=== PATIENT | female | born 1945 | race Caucasian/White ===

== ENCOUNTER 2019-12-28 11:36 | Outpatient (REF) | payer MEDICARE, SELFPAY ==
[2019-12-28 14:14] LABS: MANUAL DIFF FLAG NO
[2019-12-28 14:22] LABS: Basophils Absolute Auto 0.1 X10*3/uL (0.0-0.2); Basophils Percent Auto 1.7 % (0-2); Eosinophils Absolute Auto 0.2 X10*3/uL (0.0-0.4); Hematocrit 39.8 % (37-47); Hemoglobin 12.2 g/dl (12.0-16.0); Imm Gran Abs Auto 0.01 X10*3/uL (0.00-0.03); Imm Gran Pct Auto 0.2 % (0.0-0.4); Lymphocytes Absolute Auto 2.2 X10*3/uL (1.2-4.9); Lymphocytes Percent Auto 40.9 % (20-40); Mean Corpuscular HGB Conc 30.7 g/dl (31.0-35.0); Mean Corpuscular Hemoglobin 26.2 pg (27.0-33.0); Mean Corpuscular Volume 85.4 fL (80-98); Mean Platelet Volume 10.1 fL (9.4-12.3); Monocytes Absolute Auto 0.5 X10*3/uL (0.1-1.2); Monocytes Percent Auto 8.7 % (2-11); Neutrophils Absolute Auto 2.4 X10*3/uL (2.0-8.3); Neutrophils Percent Auto 45.5 % (45-73); Platelet Count 357 X10*3/uL (160-400); Red Blood Count 4.66 X10*6/uL (4.20-5.50); Red Cell Distribution Width 13.3 % (11.0-16.0); White Blood Count 5.3 X10*3/uL (4.8-10.8)
[2019-12-28 14:50] LABS: Alanine Aminotransferase 10 U/L (0-31); Albumin Level 4.3 g/dL (3.5-5.0); Alkaline Phosphatase 77 U/L (39-117); Anion Gap 12 (12-20); Aspartate Amino Transferase 18 U/L (5-31); Bilirubin Total 0.2 mg/dL (0.0-1.0); Blood Urea Nitrogen 19 mg/dL (9-16); Calcium 9.3 mg/dL (8.4-10.2); Carbon Dioxide 28 mmol/L (22-29); Chloride 105 mmol/L (96-108); Cholesterol 289 mg/dL; Estimated Glomerular Filt Rate 48; Glucose Fasting 95 mg/dL (60-99); HDL Cholesterol 65 mg/dL; LDL Cholesterol Calculated 202 mg/dl; Rheumatoid Factor < 15.0 IU/mL (<15.0); Sodium 140 mmol/L (135-145); Total Protein 6.9 g/dL (6.5-8.0); Triglycerides 112 mg/dL
[2019-12-28 15:10] LABS: TSH reflex Free T4 0.28 mIU/mL (0.32-4.0)
[2019-12-28 15:18] LABS: Erythrocyte Sedimentation Rate 7 MM/HR (0-20)
[2019-12-28 15:59] LABS: Free T4 (Free Thyroxine) 0.59 ng/dL (0.71-1.85)
== END 2019-12-28 11:37 | disposition home or self-care (01) ==
LOC: HO.WFDLDS 11:36
PROVIDERS: Visit Provider Family Medicine
DX: Z00.00 Encounter for general adult medical examination without abnormal findings (principal); R53.82 Chronic fatigue, unspecified; M19.042 Primary osteoarthritis, left hand; M19.041 Primary osteoarthritis, right hand
CPT/HCPCS: 36415; 80053; 80061; 84439; 84443; 85025; 85652; 86431

== ENCOUNTER → 2020-04-15 08:56 | Outpatient (BNVA) | payer MEDICARE, SELFPAY | PROVIDERS: PCP Family Medicine; Referring Provider Family Medicine; Visit Provider Family Medicine Adult Medicine ==

== ENCOUNTER 2020-05-21 08:46 | Outpatient (REF) | payer MEDICARE, SELFPAY ==
--- NOTE | ~2020-05-21 | XR_ITS ---
EXAMINATION: XR SHOULDER, LEFT CLINICAL INFORMATION: Pain COMPARISON: None TECHNIQUE: AP external rotation, Grashey, scapular Y, and axillary views of the left shoulder. FINDINGS: Bone alignment is normal. No fracture or dislocation is seen. The glenohumeral joint is normal. There is arthritis at the acromioclavicular joint. Soft tissues are unremarkable. XR/XR shoulder LT min 2V IMPRESSION: Arthritis at the acromioclavicular joint.
== END 2020-05-21 08:47 | disposition home or self-care (01) ==
LOC: HO.XRAY 08:46
PROVIDERS: PCP Internal Medicine; Visit Provider Orthopaedic Surgery
DX: M25.512 Pain in left shoulder (principal); M75.42 Impingement syndrome of left shoulder
CPT/HCPCS: 20610; 73030; 99202; J1040

== ENCOUNTER 2020-06-11 10:09 | Outpatient (REF) | payer MEDICARE, SELFPAY ==
[2020-06-11 11:43] LABS: Alanine Aminotransferase 11 U/L (0-31); Albumin Level 4.4 g/dL (3.5-5.0); Alkaline Phosphatase 74 U/L (39-117); Anion Gap 14 (12-20); Aspartate Amino Transferase 16 U/L (5-31); Bilirubin Total 0.4 mg/dL (0.0-1.0); Blood Urea Nitrogen 21 mg/dL (9-16); Calcium 9.6 mg/dL (8.4-10.2); Carbon Dioxide 26 mmol/L (22-29); Chloride 104 mmol/L (96-108); Cholesterol 270 mg/dL; Estimated Glomerular Filt Rate 43; Glucose Fasting 84 mg/dL (60-99); HDL Cholesterol 76 mg/dL; LDL Cholesterol Calculated 177 mg/dl; Potassium 4.9 mmol/L (3.3-5.1); Sodium 139 mmol/L (135-145); Total Protein 7.1 g/dL (6.5-8.0); Triglycerides 85 mg/dL
[2020-06-11 11:54] LABS: Free T4 (Free Thyroxine) 0.77 ng/dL (0.71-1.85); Thyroid Stimulating Hormone 1.15 uIU/mL (0.32-4.0); Vitamin D 25-OH Total 34.8 ng/mL (>30)
== END 2020-06-11 10:10 | disposition home or self-care (01) ==
LOC: HO.WFDLDS 10:09
PROVIDERS: Visit Provider Internal Medicine
DX: E78.5 Hyperlipidemia, unspecified (principal); I10 Essential (primary) hypertension; E03.9 Hypothyroidism, unspecified; Z78.0 Asymptomatic menopausal state
CPT/HCPCS: 36415; 80053; 80061; 82306; 84439; 84443

== ENCOUNTER 2020-11-28 11:12 | Outpatient (REF) | payer MEDICARE, SELFPAY ==
--- NOTE | ~2020-11-28 | MM_ITS ---
EXAMINATION: MM SCREENING DIGITAL BREAST TOMOSYNTHESIS, BILATERAL CLINICAL INFORMATION: Screening. Asymptomatic. The lifetime risk of breast cancer based on the Tyrer-Cuzick Model is 3%. COMPARISON: Mammography: 08/08/2019, 06/12/2018, 05/26/2017 TECHNIQUE: Digital breast tomosynthesis is performed in both the craniocaudal and mediolateral oblique views along with computer-aided detection (CAD). Synthesized 2D images are generated from the tomosynthesis. FINDINGS: There are scattered areas of fibroglandular density (ACR BI-RADS breast composition Category b). There are no significant masses, abnormal calcifications, or other abnormalities. Nodular asymmetry mid upper outer left breast is stable from prior studies. There is no developing density or architectural abnormality. The axilla and skin contours are unremarkable. No significant changes. MM/MM tomosynthesis screening BI IMPRESSION: No mammographic evidence of malignancy. ASSESSMENT: BI-RADS 2: Benign RECOMMENDATION: Routine annual mammography screening. This patient's information was entered into a reminder system with a target due date for their next mammogram.
== END 2020-11-28 11:13 | disposition home or self-care (01) ==
LOC: HO.MAMMO 11:12
PROVIDERS: Visit Provider Internal Medicine
DX: Z12.31 Encounter for screening mammogram for malignant neoplasm of breast (principal)
CPT/HCPCS: 77063; 77067

== ENCOUNTER 2021-12-02 11:11 | Outpatient (REF) | payer MEDICARE, SELFPAY ==
--- NOTE | ~2021-12-02 | MM_ITS ---
EXAMINATION: MM SCREENING DIGITAL BREAST TOMOSYNTHESIS, BILATERAL CLINICAL INFORMATION: Screening. Asymptomatic. The lifetime risk of breast cancer based on the Tyrer-Cuzick Model is 2.3%. COMPARISON: Mammography: November 28, 2020 and studies dating back to February 05, 2014 TECHNIQUE: Digital breast tomosynthesis is performed in both the craniocaudal and mediolateral oblique views along with computer-aided detection (CAD). Synthesized 2D images are generated from the tomosynthesis. FINDINGS: There are scattered areas of fibroglandular density (ACR BI-RADS breast composition Category b). There are no significant masses, abnormal calcifications, or other abnormalities. MM/MM tomosynthesis screening BI IMPRESSION: No significant changes from prior exam. ASSESSMENT: BI-RADS 1: Negative RECOMMENDATION: Routine annual mammography screening. This patient's information was entered into a reminder system with a target due date for their next mammogram.
== END 2021-12-02 11:12 | disposition home or self-care (01) ==
LOC: HO.MAMMO 11:11
PROVIDERS: PCP Internal Medicine; Visit Provider Internal Medicine
DX: Z12.31 Encounter for screening mammogram for malignant neoplasm of breast (principal)
CPT/HCPCS: 77063; 77067

== ENCOUNTER 2021-12-02 11:40 | Outpatient (REF) | payer MEDICARE, SELFPAY ==
[2021-12-02 12:07] LABS: MANUAL DIFF FLAG NO
[2021-12-02 12:41] LABS: Basophils Absolute Auto 0.1 X10*3/uL (0.0-0.2); Basophils Percent Auto 0.8 % (0-2); Eosinophils Absolute Auto 0.1 X10*3/uL (0.0-0.4); Eosinophils Percent Auto 1.8 % (0-4); Hematocrit 36.9 % (37.0-47.0); Hemoglobin 11.7 g/dl (12.0-16.0); Imm Gran Abs Auto 0.02 X10*3/uL (0.00-0.03); Imm Gran Pct Auto 0.3 % (0.0-0.4); Lymphocytes Absolute Auto 2.5 X10*3/uL (1.2-4.9); Lymphocytes Percent Auto 34.8 % (20-40); Mean Corpuscular HGB Conc 31.7 g/dl (31.0-35.0); Mean Corpuscular Hemoglobin 26.5 pg (27.0-33.0); Mean Corpuscular Volume 83.5 fL (80.0-98.0); Mean Platelet Volume 9.9 fL (9.4-12.3); Monocytes Absolute Auto 0.7 X10*3/uL (0.1-1.2); Monocytes Percent Auto 9.7 % (2-11); Neutrophils Absolute Auto 3.8 x10*3/uL (2.0-8.3); Neutrophils Percent Auto 52.6 % (45-73); Platelet Count 334 X10*3/uL (160-400); Red Blood Count 4.42 X10*6/uL (4.20-5.50); Red Cell Distribution Width 13.4 % (11.0-16.0); White Blood Count 7.3 X10*3/uL (4.8-10.8)
[2021-12-02 13:12] LABS: Alanine Aminotransferase 11 U/L (0-31); Anion Gap 19 (12-20); Aspartate Amino Transferase 24 U/L (5-31); Blood Urea Nitrogen 17 mg/dL (9-16); Calcium 9.3 mg/dL (8.4-10.2); Carbon Dioxide 21 mmol/L (22-29); Chloride 105 mmol/L (96-108); Cholesterol 280 mg/dL; Estimated Glomerular Filt Rate 42; Glucose Fasting 76 mg/dL (60-99); HDL Cholesterol 56 mg/dL; LDL Cholesterol Calculated 194 mg/dl; Potassium 5.1 mmol/L (3.3-5.1); Sodium 140 mmol/L (135-145); Triglycerides 150 mg/dL
[2021-12-02 13:26] LABS: Vitamin D 25-OH Total 37.6 ng/mL (>30)
[2021-12-02 13:46] LABS: Folate > 20.0 ng/mL (> or = 4.0); Vitamin B12 281 pg/mL (200-900)
== END 2021-12-02 11:41 | disposition home or self-care (01) ==
LOC: HO.LAB 11:40
PROVIDERS: PCP Internal Medicine; Visit Provider Internal Medicine
DX: I10 Essential (primary) hypertension (principal); E78.5 Hyperlipidemia, unspecified; G47.419 Narcolepsy without cataplexy; M19.041 Primary osteoarthritis, right hand; M19.042 Primary osteoarthritis, left hand; Z87.19 Personal history of other diseases of the digestive system; Z98.890 Other specified postprocedural states
CPT/HCPCS: 36415; 80048; 80061; 82306; 82607; 82746; 84450; 84460; 85025

== ENCOUNTER → 2021-12-17 09:18 | Outpatient (REF) | payer MEDICARE, SELFPAY ==
--- NOTE | ~2021-12-17 | NM_ITS ---
Exercise Myocardial perfusion study Indication: Atherosclerotic heart disease to evaluate for myocardial ischemia Technique: The patient was brought in for an exercise perfusion study on 12/17/2021. Patient performed exercise as per Sacha protocol and was injected 25 mCi of sestamibi was given intravenously one target HR was achieved. Images were obtained using the SPECT gamma camera interlaced with the gating device. Images were obtained in supine position. Resting perfusion study was performed on 12/18/2021. Patient was administered 25 mCi of sestamibi intravenously at rest. Images were then obtained in supine position. Images obtained with and without CT attenuation. Total DLP 86 mGy-cm. Images were processed with the software and compared side to side in short axis, horizontal long axis and vertical long axis views. Findings: The stress perfusion study showed non attenuated images show normal uptake of radiotracer in all segments of LV myocardium. There is suggestion of left hypertrophy. Attenuation corrected images show minimally reduced uptake in the apex of the LV myocardium.. The gated study shows normal LV function with calculated LVEF of greater than 70%. LV cavity is normal in size. The gated study shows normal systolic wall thickening and contraction of all segments. There is no transient ischemic dilation. Resting study shows no change in perfusion pattern compared to stress perfusion study. Gating at rest reveals normal systolic wall motion with ejection fraction at greater than 70%. The findings are consistent with normal myocardial perfusion. NM/NM sebastien perf SPECT rest & str Impression: 1. Normal myocardial perfusion 2. Gated LVEF is greater than 70% 3. Transient ischemic dilatation not present Stress EKG is equivocal for ischemia
--- NOTE | 2021-12-17 09:22 | CA_ITS ---
Acquisition Time: 2021-12-17 10:25:12 Total Exercise Time: 00:05:00 Test Indications: LEFT ARM PAIN Medications: SEE CHART Protocol: JASMEET Max HR: 157 BPM 107% of Pred: 146 BPM Max BP: 164/058 mmHG Max Work Load: 5.7 METS Exercise stress test with exercise 5 min of Jasmeet protocol, achieving 101% MPHR, with moderate shortness of breath, 2/10 ache in upper chest and ache in left upper arm, without arrythmia, with normtensive response to exercise, with borderline ST changes noted inferolateral leads. In recovery her symptoms resolved. Nuclear images pending. Test reviewed with Dr Bone Referred By: Sarwat Bone Overread By: HEBER WILLARD
--- NOTE | 2021-12-17 09:22 | CA_ITS ---
Transthoracic Echocardiogram Patient (Last, First, Middle): Azalia Coleman D Gender: Female Date of : 1945 Age: 76 Procedure Date: 12/17/2021 Procedure Type: Transthoracic Echocardiogram Location: OP Height: 154.94 cm Weight: 56.7 kg BSA: 1.55 m2 Heart Rate: 80 bpm BP: 140 / 70 mmHg Head Correction Officer: CLAUDE Referring MD: Sarwat Bone MD Symptoms: I25.10 - Atherosclerotic heart disease of [place] coronary artery without... Study Quality: Adequate ECG Rhythm: Sinus Conclusions: - The left ventricular systolic function is normal. The visually estimated ejection fraction is between 65-70%. - No obvious valvular pathology seen on this study. Findings Left Ventricle Normal left ventricular cavity size. The left ventricular systolic function is normal. The visually estimated ejection fraction is between 65-70%. There is no evidence of regional wall motion abnormalities. Diastolic function is normal for age. There is mild septal asymmetric hypertrophy. LV peak GLS measured at -13.2%, but probably underestimated. Right Ventricle Normal right ventricular cavity size and systolic function. Atria Both atria are normal in size. Aortic Valve The aortic valve was not well visualized. There is no aortic valve stenosis. There is no aortic valve regurgitation. Mitral Valve The mitral valve appears normal. There is no mitral valve regurgitation. There is no mitral valve stenosis. Pulmonic Valve The pulmonic valve is likely normal. Tricuspid Valve Normal tricuspid valve structure. There is no tricuspid valve regurgitation. Tricuspid regurgitation envelope is inadequate for calculation of right ventricular systolic pressure. Great Vessels The asc aorta is normal in size. Venous The inferior vena cava is normal in size and collapses greater than 50% with inspiration. Pericardium/Pleural There is no evidence of pericardial effusion. Prior Study Comparison No significant change compared to prior study dated: 12/06/2017. Recommendations, Care & Conclusions No obvious valvular pathology seen on this study. Measurements 2D Linear Measurements IVSd: 1.20 0.6-0.9/0.6-1.0 cm LVIDd: 3.50 3.9-5.3/4.2-5.9 cm LVIDd Index: 2.26 2.4-3.2/2.2-3.1 cm/m2 LVIDs: 1.97 2.0-3.6 cm LVPWd: 0.95 0.7-1.1 cm LA Diam: 2.70 2.7-3.8/3.0-4.0 cm LAIDs Index: 1.74 1.5-2.3 cm/m2 LV Mass: 143.09 67-162/88-224 g LV Mass Index: 92.31 43-95/49-115 g/m2 LVOT Diam: 1.80 3.0+(-)1.3 cm 2D Systolic Function EF 4C: 62.10 >55% EF 2C: 55.30 >55% EF BiP: 56.60 >55% Mitral Valve MV Pk E: 0.68 MV PK A: 0.93 MV Decel Time: 278.00 E/A: 0.70 E'Lateral: 5.85 E'Medial: 3.90 E/E' Med: 17.40 E/E' Lat: 11.60 PHT: 81.00 MVA PHT: 2.72 Decel Fountain: 2.45 Aortic Valve AoV Pk Damon: 1.21 AoV Mn Damon: 0.84 AoV VTI: 0.27 AoV Pk Grad: 6.00 Aov Mn Grad: 3.00 LEXA Cont.VTI: 2.27 LVOT LVOT Pk Damon: 0.96 LVOT Mn Damon: 0.69 LVOT VTI: 0.24 LVOT Pk Grad: 4.00 LVOT Mn Grad: 2.00 LVOT Diam: 1.80 LVOT Area: 2.54 Diastolic Function MV Pk E: 0.68 MV Pk A: 0.93 E/A: 0.70 E'Medial: 3.90 E/E' Med: 17.40 E' Laterial: 5.85 E/E' Lat: 11.60 Right Ventricle TAPSE (mm): 16.50 TVS' Damon: 12.80 Tricuspid Valve RA Press: 3.00 Great Vessels Aorta Sinus of Valsalva: 3.00 2.0-3.5 cm Ao Asc: 3.30 2.1-3.4 cm Pulmonary Valve PV Pk Damon: 0.95 Peak PV Grad: 4.00 Updated in Other Vendor System with Status of Final Sarwat Bone MD electronically signed on 12/18/2021 12:50:39 PM with status of Final
== END ==
LOC: HO.CARD 09:18
PROVIDERS: Visit Provider Internal Medicine
DX: R07.2 Precordial pain (principal); I25.10 Atherosclerotic heart disease of native coronary artery without angina pectoris
CPT/HCPCS: 78452; 93017; 93306; 93356; A9500

== ENCOUNTER → 2022-02-04 12:59 | Outpatient (BNVA) | payer MEDICARE, SELFPAY | PROVIDERS: PCP Internal Medicine; Referring Provider Internal Medicine; Visit Provider Nurse Practitioner Family | DX: M79.602 Pain in left arm (principal); I10 Essential (primary) hypertension; R00.2 Palpitations; E78.5 Hyperlipidemia, unspecified | CPT/HCPCS: 93005; 99202 ==

== ENCOUNTER → 2022-02-19 11:20 | Outpatient (REF) | payer MEDICARE, SELFPAY ==
--- NOTE | 2022-02-19 11:23 | HM_ITS ---
* Total monitoring time about 4 days. * Underlying rhythm is sinus. * Average ventricular rate 80/Min. Range 61 to 118/Min. * Rare PVCs. Short run of likely idioventricular rhythm. * No significant bradycardia or pauses. * No patient diary. MTDD
== END ==
LOC: HO.CARD 11:20
PROVIDERS: PCP Internal Medicine; Visit Provider Nurse Practitioner Family
DX: R00.2 Palpitations (principal)
CPT/HCPCS: 93242

== ENCOUNTER 2022-04-09 11:01 | Outpatient (REF) | payer MEDICARE, SELFPAY ==
[2022-04-09 13:28] LABS: MANUAL DIFF FLAG NO
[2022-04-09 13:29] LABS: Basophils Absolute Auto 0.1 X10*3/uL (0.0-0.2); Basophils Percent Auto 1.4 % (0-2); Eosinophils Absolute Auto 0.1 X10*3/uL (0.0-0.4); Eosinophils Percent Auto 1.9 % (0-4); Hematocrit 40.9 % (37.0-47.0); Hemoglobin 12.8 g/dl (12.0-16.0); Imm Gran Abs Auto 0.01 X10*3/uL (0.00-0.03); Imm Gran Pct Auto 0.2 % (0.0-0.4); Lymphocytes Absolute Auto 2.9 X10*3/uL (1.2-4.9); Lymphocytes Percent Auto 44.6 % (20-40); Mean Corpuscular HGB Conc 31.3 g/dl (31.0-35.0); Mean Corpuscular Hemoglobin 26.3 pg (27.0-33.0); Mean Corpuscular Volume 84.2 fL (80.0-98.0); Mean Platelet Volume 10.2 fL (9.4-12.3); Monocytes Absolute Auto 0.7 X10*3/uL (0.1-1.2); Monocytes Percent Auto 10.8 % (2-11); Neutrophils Absolute Auto 2.6 x10*3/uL (2.0-8.3); Neutrophils Percent Auto 41.1 % (45-73); Platelet Count 373 X10*3/uL (160-400); Red Blood Count 4.86 X10*6/uL (4.20-5.50); Red Cell Distribution Width 13.4 % (11.0-16.0); White Blood Count 6.4 X10*3/uL (4.8-10.8)
[2022-04-09 14:23] LABS: Cholesterol 270 mg/dL; HDL Cholesterol 64 mg/dL; Iron 123 mcg/dL (30-160); LDL Cholesterol Calculated 183 mg/dl; Percent Iron Saturation 38 % (15-50); Total Iron Binding Capacity 327 mcg/dL (228-428); Triglycerides 118 mg/dL; Unsaturated Iron Binding 204 ug/dL
== END 2022-04-09 11:02 | disposition home or self-care (01) ==
LOC: HO.WFDLDS 11:01
PROVIDERS: Visit Provider Internal Medicine
DX: Z00.01 Encounter for general adult medical examination with abnormal findings (principal); I10 Essential (primary) hypertension; E78.5 Hyperlipidemia, unspecified; Z86.2 Personal history of diseases of the blood and blood-forming organs and certain disorders involving the immune mechanism
CPT/HCPCS: 36415; 80061; 83540; 85025

== ENCOUNTER 2022-07-09 10:29 | Outpatient (REF) | payer MEDICARE, SELFPAY ==
[2022-07-09 13:24] LABS: MANUAL DIFF FLAG NO
[2022-07-09 13:26] LABS: Basophils Absolute Auto 0.1 X10*3/uL (0.0-0.2); Basophils Percent Auto 1.4 % (0-2); Eosinophils Absolute Auto 0.2 X10*3/uL (0.0-0.4); Eosinophils Percent Auto 2.7 % (0-4); Hematocrit 37.9 % (37.0-47.0); Imm Gran Abs Auto 0.02 X10*3/uL (0.00-0.03); Imm Gran Pct Auto 0.4 % (0.0-0.4); Lymphocytes Absolute Auto 2.5 X10*3/uL (1.2-4.9); Mean Corpuscular HGB Conc 31.7 g/dl (31.0-35.0); Mean Corpuscular Hemoglobin 26.3 pg (27.0-33.0); Mean Corpuscular Volume 83.1 fL (80.0-98.0); Mean Platelet Volume 10.4 fL (9.4-12.3); Monocytes Absolute Auto 0.5 X10*3/uL (0.1-1.2); Monocytes Percent Auto 9.4 % (2-11); Neutrophils Absolute Auto 2.4 x10*3/uL (2.0-8.3); Neutrophils Percent Auto 42.1 % (45-73); Platelet Count 316 X10*3/uL (160-400); Red Blood Count 4.56 X10*6/uL (4.20-5.50); Red Cell Distribution Width 13.8 % (11.0-16.0); White Blood Count 5.7 X10*3/uL (4.8-10.8)
[2022-07-09 14:17] LABS: Alanine Aminotransferase 11 U/L (0-31); Aspartate Amino Transferase 20 U/L (5-31); Cholesterol 242 mg/dL; HDL Cholesterol 58 mg/dL; LDL Cholesterol Calculated 162 mg/dl; Triglycerides 110 mg/dL
[2022-07-09 14:32] LABS: Vitamin D 25-OH Total 36.2 ng/mL (>30)
== END 2022-07-09 10:30 | disposition home or self-care (01) ==
LOC: HO.WFDLDS 10:29
PROVIDERS: Visit Provider Internal Medicine
DX: E78.5 Hyperlipidemia, unspecified (principal); F41.9 Anxiety disorder, unspecified; N95.9 Unspecified menopausal and perimenopausal disorder; Z86.2 Personal history of diseases of the blood and blood-forming organs and certain disorders involving the immune mechanism
CPT/HCPCS: 36415; 80061; 82306; 84450; 84460; 85025

== ENCOUNTER 2022-07-13 11:05 | Outpatient (AMB) | payer MEDICARE, SELFPAY ==
--- NOTE | 2022-07-13 11:15 | MHC.PC.OV ---
Vital Signs 07/13/22 11:17 Height 5 ft 1 in Weight 132 lb BMI 24.9 BP 142/70 H Blood Pressure Location Rt brachial Position Sitting Pulse 92 Pulse Source Pulse Oximeter Pulse Oximetry (%) 97 Oxygen Delivery Method Room Air Intake Visit Reasons: 3m, anxiety,htn,narcolepsdy, lipids Intake Note: Pt is here today for her 3 months f/u Allergies No Known Allergies [No Known Allergies*] Allergy (Verified 10/29/22 17:30) Medication List - Last Reconciled 07/13/22 by Zo Beaulieu MD cholecalciferol (vitamin D3) 50 mcg PO DAILY clobetasol 0.05% grams topical DAILY PRN duloxetine 60 mg PO DAILY enalapril maleate 10 mg PO DAILY estradiol 1 patch topical 2XW famotidine 40 mg PO BID folic acid 1 mg PO DAILY metoprolol succinate ER 25 mg PO DAILY modafinil 200 mg PO QAM rosuvastatin 5 mg PO DAILY Tobacco use date assessed: 07/13/22 Fall risk assessment: No Falls in past year Last assessed Fall Risk: 07/13/22 HPI 3m, anxiety,htn,narcolepsdy, lipids HPI Details 77-year-old lady here today for follow-up on her anxiety disorder, hypertension, narcolepsy and dyslipidemia. She has been compliant with taking her medications, has been watching what she is eating, and has tried exercising on a regular basis. 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 How often do you have a drink containing alcohol?: Never Total Score: 0 INDIRA-7 AMB Questionnaire INDIRA-7 Date INDIRA - 7 assessed: 10/16/21 Source: Developed by Drs. Brian Colon, Althea Harry, Chalo Murray and colleagues, with an educational aisha from [employer]. Review of Systems Const Denies body aches, Denies fatigue, Denies headache(s), Denies malaise and Denies weakness Eyes Denies change in vision ENT Reports no additional complaints and Denies headache(s) Card Denies chest pain, Denies chest pain with activity, Denies syncope, Denies rapid heart rate, Denies edema, Denies lightheadedness, Denies palpitations and Denies dyspnea Resp Denies cough, Denies dyspnea and Denies wheezing GI Denies bloating, Denies change in bowel habits and Denies heartburn Denies hematuria, Denies urinary frequency and Denies dysuria Musc Denies abnormal gait, Denies muscle weakness, Denies numbness and Denies radiating pain into limb Neuro Denies abnormal gait, Denies syncope, Denies headache(s), Denies memory loss, Denies numbness and Denies weakness Psych Denies depression and Denies memory loss Endo Denies fatigue and Denies palpitations Azam/Lymph Denies easy bleeding and Denies easy bruising Aller/Immun Denies wheezing Physical exam (Primary Care) Vital Signs: Last Vital Signs Pulse 92 07/13/22 11:17 BP 142/70 H 07/13/22 11:17 Pulse Ox 97 07/13/22 11:17 Oxygen Delivery Method Room Air 07/13/22 11:17 BMI result Body Mass Index 24.9 Tobacco/Smoking Status: Tobacco use Status Tobacco use date assessed 07/13/22 07/13/22 11:21 Patient Tobacco Use Status Former Tobacco user 07/13/22 11:21 e-Cigarette/Vaping Use Never Used 07/13/22 11:21 Thrive Assessment: Date of Thrive Assessment Date Thrive assessed 10/16/21 07/13/22 11:21 Const General: cooperative, healthy appearing, comfortable and no acute distress Orientation/consciousness: patient oriented x3 HENMT Head: Yes normocephalic Ears: external ears normal, TM's normal bilaterally and EAC's normal General nose exam: Normal external nose present Face and sinus: Yes face symmetric Mouth: Normal oral and palatal mucosa present, oropharynx normal and moist mucous membranes Eyes General: appearance normal, both eyes and all related structures Neck Neck: Yes full ROM, Yes no lymphadenopathy and Yes supple Thyroid: Thyroid normal Resp Effort & Inspection: normal respiratory effort and able to speak in complete sentences Auscultation: clear to auscultation bilaterally Cardio Rate: regular rate Rhythm: regular rhythm Heart sounds: S1 normal heart sound present and S2 normal heart sound present GI Inspection: Yes normal to inspection Palpation (GI): Soft to palpation, nontender, no guarding and no masses Auscultation: normal bowel sounds General: Yes no CVA tenderness Back/Spine/Pelvis Back: no CVA tenderness and No back tenderness Skin General skin exam: no rashes or lesions noted Neuro General: patient oriented x3, gait normal, moves all extremities, Normal light touch and pain sensation, no focal motor deficits and CN's II-XI intact bilaterally Extrem General: Yes full ROM, Yes no joint enlargement, Yes no pedal edema and Yes normal gait Assessment and Plan Assessment & Plan (1) Hyperlipidemia: Code(s): E78.5 - Hyperlipidemia, unspecified Plan: Reviewed recent fasting lipid profile with patient with improving LDL cholesterol levels . Continue with rosuvastatin but dose increased to 10 mg daily , in addition to adherence to low-cholesterol diet and regular exercise, at least 30 minutes 3 to 4 times a week. Advised patient to make healthy food choices, eat more fruits, vegetables, whole grains, wild caught fish and low-fat dairy. Limit amount of meat and fried or fatty food products, as well as processed foods and fast foods. Follow-up scheduled with repeat fasting lipid panel in 3 months. (2) Essential hypertension: Code(s): I10 - Essential (primary) hypertension Plan: Blood pressure goal s less than 130/80. Systolic blood pressure today slightly elevated. Continue with enalapril maleate 10 mg once a day. Reinforced importance of following a low sodium diet, getting regular exercise, and lowering stress levels. (3) Narcolepsy: Code(s): G47.419 - Narcolepsy without cataplexy Plan: Currently on modafinil Orders: Orders Alanine Aminotransferase 3 Months E78.5 - Hyperlipidemia, unspecified, I10 - Essential (primary) hypertension, M19.041 - Primary osteoarthritis, right hand, M19.042 - Primary osteoarthritis, left hand, G47.419 - Narcolepsy without cataplexy Lipid Panel 3 Months E78.5 - Hyperlipidemia, unspecified, I10 - Essential (primary) hypertension, M19.041 - Primary osteoarthritis, right hand, M19.042 - Primary osteoarthritis, left hand, G47.419 - Narcolepsy without cataplexy Basic Metabolic Panel Fasting 3 Months E78.5 - Hyperlipidemia, unspecified, I10 - Essential (primary) hypertension, M19.041 - Primary osteoarthritis, right hand, M19.042 - Primary osteoarthritis, left hand, 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 - Narcolepsy without cataplexy Aspartate Amino Transferase 3 Months E78.5 - Hyperlipidemia, unspecified, I10 - Essential (primary) hypertension, M19.041 - Primary osteoarthritis, right hand, M19.042 - Primary osteoarthritis, left hand, 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
[2022-07-13 11:17] VITALS: BP 142/70; PULSE 92; O2SAT 97; BMI 24.9
== END 2022-07-13 13:04 | disposition home or self-care (01) ==
LOC: HO.HMGC 11:05
PROVIDERS: PCP Internal Medicine; Visit Provider Internal Medicine
DX: E78.5 Hyperlipidemia, unspecified (principal); I10 Essential (primary) hypertension; G47.419 Narcolepsy without cataplexy
CPT/HCPCS: 99214

== ENCOUNTER 2022-10-29 11:05 | Outpatient (REF) | payer MEDICARE, SELFPAY ==
[2022-10-29 16:02] LABS: Alanine Aminotransferase 8 U/L (0-31); Anion Gap 14 (12-20); Aspartate Amino Transferase 20 U/L (5-31); Blood Urea Nitrogen 15 mg/dL (9-16); Calcium 9.5 mg/dL (8.4-10.2); Carbon Dioxide 24 mmol/L (22-29); Chloride 108 mmol/L (96-108); Cholesterol 322 mg/dL (<200); Estimated Glomerular Filt Rate 40; Glucose Fasting 85 mg/dL (60-99); HDL Cholesterol 65 mg/dL (>40); LDL Cholesterol Calculated 230 mg/dL (<100); Potassium 4.9 mmol/L (3.3-5.1); Sodium 141 mmol/L (135-145); Triglycerides 136 mg/dL (<150)
== END 2022-10-29 11:06 | disposition home or self-care (01) ==
LOC: HO.WFDLDS 11:05
PROVIDERS: Visit Provider Internal Medicine
DX: E78.5 Hyperlipidemia, unspecified (principal); I10 Essential (primary) hypertension; M19.041 Primary osteoarthritis, right hand; M19.042 Primary osteoarthritis, left hand; G47.419 Narcolepsy without cataplexy
CPT/HCPCS: 36415; 80048; 80061; 84450; 84460

== ENCOUNTER 2022-11-02 11:27 | Outpatient (AMB) | payer MEDICARE, SELFPAY ==
--- NOTE | 2022-11-02 11:49 | MHC.PC.OV ---
Vital Signs 11/02/22 12:12 Height 5 ft 1 in Weight 129 lb BMI 24.4 BP 146/80 H Blood Pressure Location Rt brachial Position Sitting Pulse 89 Pulse Source Pulse Oximeter Pulse Oximetry (%) 98 Oxygen Delivery Method Room Air Intake Visit Reasons: 4 month follow-up Intake Note: Pt is here today for her 4 months f/u Allergies No Known Allergies [No Known Allergies*] Allergy (Verified 11/02/22 12:31) Medication List - Last Reconciled 11/02/22 by Zo Beaulieu MD cholecalciferol (vitamin D3) 50 mcg PO DAILY clobetasol 0.05% grams topical DAILY PRN duloxetine 60 mg PO DAILY enalapril maleate 10 mg PO DAILY estradiol 1 patch topical 2XW famotidine 40 mg PO BID folic acid 1 mg PO DAILY metoprolol succinate ER 25 mg PO DAILY modafinil take 200 mg in am and 100 mg in pm 30 days rosuvastatin 5 mg PO DAILY Tobacco use date assessed: 11/02/22 Fall risk assessment: No Falls in past year Last assessed Fall Risk: 11/02/22 Dental Screening Dental Screen Date: 11/02/22 Did you have a dental visit in the last 12 months?: Yes Did you have a dental problem in the last 6 months where you did not have access to dental care?: No Was dental information given to patient?: Patient has dentist HPI 4 month follow-up HPI Details 77-year-old lady hypertension, hyperlipidemia, history of narcolepsy, currently on modafinil, arthritis in both hands and lichen sclerosis, here today for follow-up. She has been taking her medicines as directed, but has not been paying attention to her diet, and not taking her rosuvastatin regularly. Currently trying to cope with the sudden passing of her daughter. Recent fasting labs done which showed marked elevation in her LDL cholesterol. [facility] Medical History Microcytic hypochromic anemia Lichen sclerosus Hx of gastritis Narcolepsy Rotator cuff impingement syndrome of left shoulder Lumbar radiculopathy, right Arthritis of both hands Surgical History Hx of colonoscopy H/O microdiscectomy History of bowel resection Family History Brother S/P TAVR (transcatheter aortic valve replacement) Social History (Reviewed 11/28/22 @ 17: by Zo Beaulieu MD) Housing: House Alcohol intake: unknown Patient Tobacco Use Status: Former Tobacco user e-Cigarette/Vaping Use: Never Used Current occupational status: retired Current occupation: right Handed Cognitive needs: No Hearing needs: No Vision needs: Yes Questionnaire Thrive Questionnaire Date Thrive assessed: 11/02/22 I am a: Patient What is your living situation today?: I have a steady place to live Within the past 12 months, did the food you bought not last and you didn't have the money to get more?: Never true Within the past 12 months, did you worry whether your food would run out before you got money to buy more?: Never true Do you have trouble paying for medicines?: No Do you have trouble getting transportation to medical appointments?: No Do you have trouble paying your heating and electricity bill?: No Do you have trouble taking care of your child, family member or friend?: No Do you have trouble with day-to-day activities such as bathing, preparing meals, shopping, managing finances, etc.?: No Are you currently unemployed and looking for a job?: No Are you interested in more education?: No AUDIT C Alcohol Use Questionnaire (AUDIT-C) 1. How often do you have a drink containing alcohol?: Never 2. How many drinks containing alcohol do you have on a typical day when you are drinking?: 1 or 2 3. How often do you have six or more drinks on one occasion?: Never Total Score: 0 INDIRA-7 AMB Questionnaire INDIRA-7 Date INDIRA - 7 assessed: 11/02/22 Feeling nervous, anxious, or on edge: 0 = Not at all Not being able to stop or control worryin = Not at all Worrying too much about different things: 0 = Not at all Trouble relaxin = Not at all Being so restless that it is hard to sit still: 0 = Not at all Becoming easily annoyed or irritable: 0 = Not at all Feeling afraid as if something awful might happen: 0 = Not at all Total INDIRA-7 score (0-4 normal; 5-9 mild; 10-14 moderate; 15-21 severe): 0 Source: Developed by Drs. Brian Colon, Althea Harry, Chalo Murray and colleagues, with an educational aisha from [employer]. Review of Systems Const Denies body aches, Denies headache(s) and Denies weakness Eyes Denies change in vision ENT Reports no additional complaints and Denies headache(s) Card Denies chest pain, Denies chest pain with activity, Denies syncope, Denies rapid heart rate, Denies edema, Denies lightheadedness, Denies palpitations and Denies dyspnea Resp Denies cough, Denies dyspnea and Denies wheezing GI Denies bloating, Denies change in bowel habits and Denies heartburn Denies hematuria, Denies urinary frequency and Denies dysuria Musc Denies abnormal gait, Denies muscle weakness, Denies numbness and Denies radiating pain into limb Neuro Denies abnormal gait, Denies syncope, Denies headache(s), Denies memory loss, Denies numbness and Denies weakness Psych Denies depression and Denies memory loss Endo Denies palpitations Azam/Lymph Denies easy bleeding and Denies easy bruising Aller/Immun Denies wheezing Physical exam (Primary Care) Vital Signs: Last Vital Signs Pulse 89 11/02/22 12:12 BP 146/80 H 11/02/22 12:12 Pulse Ox 98 11/02/22 12:12 Oxygen Delivery Method Room Air 11/02/22 12:12 BMI result Body Mass Index 24.4 Tobacco/Smoking Status: Tobacco use Status Tobacco use date assessed 11/02/22 11/02/22 11:50 Patient Tobacco Use Status Former Tobacco user 11/02/22 11:50 e-Cigarette/Vaping Use Never Used 11/02/22 11:50 Thrive Assessment: Date of Thrive Assessment Date Thrive assessed 11/02/22 11/02/22 12:17 Const General: cooperative, comfortable and no acute distress Orientation/consciousness: patient oriented x3 HENMT Head: Yes normocephalic Ears: external ears normal General nose exam: Normal external nose present Face and sinus: Yes face symmetric Mouth: Normal oral and palatal mucosa present, oropharynx normal and moist mucous membranes Eyes General: appearance normal, both eyes and all related structures Neck Neck: Yes full ROM, Yes no lymphadenopathy and Yes supple Thyroid: Thyroid normal Resp Effort & Inspection: normal respiratory effort and able to speak in complete sentences Auscultation: clear to auscultation bilaterally Cardio Rate: regular rate Rhythm: regular rhythm Heart sounds: S1 normal heart sound present and S2 normal heart sound present GI Inspection: Yes normal to inspection Palpation (GI): Soft to palpation, nontender, no guarding and no masses Auscultation: normal bowel sounds General: Yes no CVA tenderness Back/Spine/Pelvis Back: no CVA tenderness and No back tenderness Skin General skin exam: no rashes or lesions noted Neuro General: patient oriented x3, gait normal, moves all extremities, Normal light touch and pain sensation, no focal motor deficits and CN's II-XI intact bilaterally Extrem General: Yes full ROM, Yes no joint enlargement, Yes no pedal edema and Yes normal gait Results Reviewed Results Reviewed: ENTERED: 10/29/22-[address]: ORDERED: Met Prof Fast, AST, ALT, Lipid Panel Test Result Flag Reference Site Sodium 141 135-145 mmol/L Potassium 4.9 3.3-5.1 mmol/L CL 108 96-108 mmol/L CO2 24 22-29 mmol/L Gap 14 12-20 BUN 15 9-16 mg/dL Creat 1.29 0.5-1.4 mg/dL EGFR 40 NOTE: For -[place] individuals, multiply the result by 1.210. Chronic Kidney Disease: Estimated GFR < 60 mL/min/1.73m2 Severe Kidney Disease: Estimated GFR < 15 mL/min/1.73m2 FBS 85 60-99 mg/dL CA 9.5 8.4-10.2 mg/dL AST (GOT) 20 5-31 U/L ALT (GPT) 8 0-31 U/L Triglyceride 136 <150 mg/dL Desirable Triglyceride: less than 150 mg/dL Borderline High Triglyceride 150-199 mg/dL High Triglyceride: 200-499 mg/dL Very High Triglyceride: greater than or equal to 5OO mg/dL Cholesterol 322 H <200 mg/dL Desirable Cholesterol: less than 200 mg/dL Borderline High Cholesterol: 200-239 mg/dL High Cholesterol: greater than 239 mg/dL LDL Calculated 230 H <100 mg/dL Desirable LDL: less than 100 mg/dL Near Optimal/Above Optimal LDL: 110-129 mg/dL Borderline High LDL: 130-159 mg/dL High LDL: 160-189 mg/dL Very High LDL: greater than or equal to 190 mg/dL HDL 65 >40 mg/dL Desirable HDL: greater than 40 mg/dL Note: This HDL assay may give artificially low results in patients with liver disease. Assessment and Plan Assessment & Plan (1) Hyperlipidemia: Code(s): E78.5 - Hyperlipidemia, unspecified Qualifiers: Hyperlipidemia type: pure hypercholesterolemia Qualified Code(s): E78.00 - Pure hypercholesterolemia, unspecified Plan: Discuss recent fasting lab results with patient, stressed importance of taking her medication as directed and following a low-cholesterol diet and getting regular exercise. Will recheck again fasting lipid panel in 3 months (2) Essential hypertension: Code(s): I10 - Essential (primary) hypertension Plan: Blood pressure goal is less than 130/80. Increase metoprolol succinate dose to 50 mg daily. Reinforced importance of following a low sodium diet, getting regular exercise, and lowering stress levels. Orders: Orders Lipid Panel 01/14/23 E78.5 - Hyperlipidemia, unspecified, I10 - Essential (primary) hypertension Basic Metabolic Panel Fasting 01/14/23 E78.5 - Hyperlipidemia, unspecified, I10 - Essential (primary) hypertension Alanine Aminotransferase 01/14/23 E78.5 - Hyperlipidemia, unspecified, I10 - Essential (primary) hypertension Aspartate Amino Transferase 01/14/23 E78.5 - Hyperlipidemia, unspecified, I10 - Essential (primary) hypertension Vitamin D 25-OH Total 01/14/23 E78.5 - Hyperlipidemia, unspecified, I10 - Essential (primary) hypertension Medications: Changed From metoprolol succinate ER 25 mg PO DAILY 90 tabs 1RF To metoprolol succinate ER 50 mg PO DAILY 90 tabs 1RF Coding Level of Care Code Est Pt Level 4 (71399) Diagnoses Pure hypercholesterolemia E78.00 Hyperlipidemia type: pure hypercholesterolemia Essential hypertension I10
[2022-11-02 12:12] VITALS: BP 146/80; PULSE 89; O2SAT 98; BMI 24.4
== END 2022-11-02 13:35 | disposition home or self-care (01) ==
PROVIDERS: Visit Provider Internal Medicine
DX: E78.00 Pure hypercholesterolemia, unspecified (principal); I10 Essential (primary) hypertension
CPT/HCPCS: 99214

== ENCOUNTER 2023-01-28 10:52 | Outpatient (REF) | payer MEDICARE, SELFPAY ==
[2023-01-28 15:13] LABS: Alanine Aminotransferase 10 U/L (0-31); Anion Gap 12 (12-20); Aspartate Amino Transferase 19 U/L (5-31); Blood Urea Nitrogen 19 mg/dL (9-16); Calcium 9.2 mg/dL (8.4-10.2); Carbon Dioxide 26 mmol/L (22-29); Chloride 105 mmol/L (96-108); Cholesterol 257 mg/dL (<200); Estimated Glomerular Filt Rate 41; Glucose Fasting 106 mg/dL (60-99); HDL Cholesterol 57 mg/dL (>40); LDL Cholesterol Calculated 170 mg/dL (<100); Potassium 4.2 mmol/L (3.3-5.1); Sodium 139 mmol/L (135-145); Triglycerides 152 mg/dL (<150)
== END 2023-01-28 10:53 | disposition home or self-care (01) ==
LOC: HO.WFDLDS 10:52
PROVIDERS: Visit Provider Internal Medicine
DX: E78.5 Hyperlipidemia, unspecified (principal); I10 Essential (primary) hypertension
CPT/HCPCS: 36415; 80048; 80061; 82306; 84450; 84460

== ENCOUNTER 2023-02-01 12:07 | Outpatient (AMB) | payer MEDICARE, SELFPAY ==
[2023-02-01 12:49] VITALS: BP 130/70; PULSE 71; O2SAT 97; BMI 24.6
--- NOTE | 2023-02-01 12:49 | MHC.PC.OV ---
Vital Signs 02/01/23 12:49 Height 5 ft 1 in Weight 130 lb 6 oz BMI 24.6 BP 130/70 Blood Pressure Location Lt brachial Position Sitting Pulse 71 Pulse Source Pulse Oximeter Pulse Oximetry (%) 97 Oxygen Delivery Method Room Air Intake Visit Reasons: follow up Intake Note: Pt is here to follow up for her lab results Allergies No Known Allergies [No Known Allergies*] Allergy (Verified 02/01/23 13:06) Medication List - Last Reconciled 02/01/23 by Zo Beaulieu MD cholecalciferol (vitamin D3) 50 mcg PO DAILY clobetasol 0.05% grams topical DAILY PRN duloxetine 60 mg PO DAILY enalapril maleate 10 mg PO DAILY estradiol 1 patch topical 2XW famotidine 40 mg PO BID folic acid 1 mg PO DAILY metoprolol succinate ER 50 mg PO DAILY modafinil take 200 mg in am and 100 mg in pm 30 days rosuvastatin 5 mg PO DAILY Tobacco use date assessed: 02/01/23 Fall risk assessment: No Falls in past year Last assessed Fall Risk: 02/01/23 Dental Screening Dental Screen Date: 02/01/23 Did you have a dental visit in the last 12 months?: Yes Did you have a dental problem in the last 6 months where you did not have access to dental care?: No Was dental information given to patient?: Patient has dentist HPI follow up HPI Details 78-year-old lady with hypertension, hyperlipidemia, 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 Her blood pressure is still not at goal of less than 130/90 . Recent fasting labs showed elevated LDL cholesterol at 170 mg/dL., despite taking rosuvastatin 5 mg daily. [facility] Medical History (Updated 02/01/23 @ 13:21 by Zo Beaulieu MD) Impaired fasting glucose Microcytic hypochromic anemia Lichen sclerosus Hx of gastritis Narcolepsy Rotator cuff impingement syndrome of left shoulder Lumbar radiculopathy, right Arthritis of both hands Surgical History Hx of colonoscopy H/O microdiscectomy History of bowel resection Family History Brother S/P TAVR (transcatheter aortic valve replacement) Social History Housing: House Alcohol intake: unknown Patient Tobacco Use Status: Former Tobacco user e-Cigarette/Vaping Use: Never Used Current occupational status: retired Current occupation: right Handed Cognitive needs: No Hearing needs: No Vision needs: Yes Questionnaire Thrive Questionnaire Date Thrive assessed: 11/02/22 INDIRA-7 AMB Questionnaire INDIRA-7 Date INDIRA - 7 assessed: 11/02/22 Source: Developed by Drs. Brian Colon, Althea Harry, Chalo Murray and colleagues, with an educational aisha from [employer]. Review of Systems Const Denies body aches, Denies headache(s) and Denies weakness Eyes Denies change in vision ENT Denies headache(s) Card Denies chest pain, Denies chest pain with activity, Denies syncope, Denies edema, Denies lightheadedness, Denies palpitations and Denies dyspnea Resp Denies cough, Denies dyspnea and Denies wheezing GI Denies bloating, Denies change in bowel habits and Denies heartburn Denies hematuria, Denies urinary frequency and Denies dysuria Musc Denies abnormal gait, Denies muscle weakness, Denies numbness and Denies radiating pain into limb Neuro Denies abnormal gait, Denies syncope, Denies headache(s), Denies numbness and Denies weakness Endo Denies palpitations Azam/Lymph Denies easy bleeding and Denies easy bruising Aller/Immun Denies wheezing Physical exam (Primary Care) Vital Signs: Last Vital Signs Pulse 71 02/01/23 12:49 BP 130/70 02/01/23 12:49 Pulse Ox 97 02/01/23 12:49 Oxygen Delivery Method Room Air 02/01/23 12:49 BMI result Body Mass Index 24.6 Tobacco/Smoking Status: Tobacco use Status Tobacco use date assessed 02/01/23 02/01/23 12:55 Patient Tobacco Use Status Former Tobacco user 02/01/23 12:51 e-Cigarette/Vaping Use Never Used 02/01/23 12:51 Thrive Assessment: Date of Thrive Assessment Date Thrive assessed 11/02/22 02/01/23 12:51 Const General: cooperative, comfortable and no acute distress Orientation/consciousness: patient oriented x3 HENMT Head: Yes normocephalic Ears: external ears normal General nose exam: Normal external nose present Face and sinus: Yes face symmetric Mouth: Normal oral and palatal mucosa present, oropharynx normal and moist mucous membranes Eyes General: appearance normal, both eyes and all related structures Neck Neck: Yes full ROM, Yes no lymphadenopathy and Yes supple Thyroid: Thyroid normal Resp Effort & Inspection: normal respiratory effort and able to speak in complete sentences Auscultation: clear to auscultation bilaterally Cardio Rate: regular rate Rhythm: regular rhythm Heart sounds: S1 normal heart sound present and S2 normal heart sound present GI Inspection: Yes normal to inspection Palpation (GI): Soft to palpation, nontender, no guarding and no masses Auscultation: normal bowel sounds General: Yes no CVA tenderness Back/Spine/Pelvis Back: no CVA tenderness and No back tenderness Skin General skin exam: no rashes or lesions noted Neuro General: patient oriented x3, gait normal, moves all extremities, Normal light touch and pain sensation, no focal motor deficits and CN's II-XI intact bilaterally Extrem General: Yes full ROM, Yes no joint enlargement, Yes no pedal edema and Yes normal gait Results Reviewed Results Reviewed: Name: Azalia Coleman Age/Sex: 78/F : 1945 Unit#: [id number] Attend Dr: Zo Beaulieu MD Re01/28/23 Status: DEP REF Location: [facility] [place] Disch: SPEC : [id number] LENARD: 01/28/23 STATUS: COMP REQ : [id number] RECD: 01/28/23-[address]: Zo Beaulieu MD COMP: 01/28/23-153 ENTERED: 01/28/23-[address]: ORDERED: Met Prof Fast, AST, ALT, Lipid Panel, Vitamin D 25-OH Test Result Flag Reference Site Sodium 139 135-145 mmol/L Potassium 4.2 3.3-5.1 mmol/L CL 105 96-108 mmol/L CO2 26 22-29 mmol/L Gap 12 12-20 BUN 19 H 9-16 mg/dL Creat 1.26 0.5-1.4 mg/dL EGFR 41 NOTE: For -[place] individuals, multiply the result by 1.210. Chronic Kidney Disease: Estimated GFR < 60 mL/min/1.73m2 Severe Kidney Disease: Estimated GFR < 15 mL/min/1.73m2 FBS 106 H 60-99 mg/dL A fasting glucose from 100-125 mg/dl is considered impaired (pre-diabetes). CA 9.2 8.4-10.2 mg/dL AST (GOT) 19 5-31 U/L ALT (GPT) 10 0-31 U/L Triglyceride 152 H <150 mg/dL Desirable Triglyceride: less than 150 mg/dL Borderline High Triglyceride 150-199 mg/dL High Triglyceride: 200-499 mg/dL Very High Triglyceride: greater than or equal to 5OO mg/dL Cholesterol 257 H <200 mg/dL Desirable Cholesterol: less than 200 mg/dL Borderline High Cholesterol: 200-239 mg/dL High Cholesterol: greater than 239 mg/dL LDL Calculated 170 H <100 mg/dL Desirable LDL: less than 100 mg/dL Near Optimal/Above Optimal LDL: 110-129 mg/dL Borderline High LDL: 130-159 mg/dL High LDL: 160-189 mg/dL Very High LDL: greater than or equal to 190 mg/dL HDL 57 >40 mg/dL Desirable HDL: greater than 40 mg/dL Note: This HDL assay may give artificially low results in patients with liver disease. Vit D 25-OH Tot 50.0 >30 ng/mL Health Based Reference Values* < 20 ng/mL Deficient 20-30 ng/mL Insufficient > 30 ng/mL Sufficient Laboratory Tests 10/29/22 01/28/23 11:05 10:55 Triglycerides 136 152 H Cholesterol 322 H 257 H LDL Cholesterol, Calc 230 H 170 H HDL Cholesterol 65 57 Assessment and Plan Assessment & Plan (1) Hyperlipidemia: Code(s): E78.5 - Hyperlipidemia, unspecified Qualifiers: Hyperlipidemia type: pure hypercholesterolemia Qualified Code(s): E78.00 - Pure hypercholesterolemia, unspecified Plan: Her lipid levels has decreased from a total cholesterol of 322 4 months ago, down to 57 mg/dL in her LDL cholesterol has come down from 230 mg/dL to 170 mg per dL in 4 months. Will continue on rosuvastatin 5 mg once a day, and reinforced adherence to low-cholesterol diet and regular exercise, at least 30 minutes 3 to 4 times a week. Advised patient to make healthy food choices, eat more fruits, vegetables, whole grains, wild caught fish and low-fat dairy. Limit amount of meat and fried or fatty food products, as well as processed foods and fast foods. Follow-up scheduled with repeat fasting lipid panel in 4 months. (2) Essential hypertension: Code(s): I10 - Essential (primary) hypertension Plan: Blood pressure at goal of less than 130/80. Continue with current medication. Reinforced importance of following a low sodium diet, getting regular exercise, and lowering stress levels. (3) Impaired fasting glucose: Code(s): R73.01 - Impaired fasting glucose Plan: Your fasting blood sugars are elevated above 100 mg/dL. Impaired glucose metabolism O2 at risk for developing diabetes mellitus type 2, as well as heart attack and stroke later on. Lifestyle changes at just weight loss, healthy eating habits, and regular exercise are important, and can prevent the progression to diabetes (4) CKD (chronic kidney disease) stage 3, GFR 30-59 ml/min: Code(s): N18.30 - Chronic kidney disease, stage 3 unspecified Plan: GFR has been stable always in the 40s. Stressed importance of getting blood pressure, cholesterol and fasting glucose and to control, avoid NSAIDs, repeat another basic metabolic panel in 4 months Orders: Orders Alanine Aminotransferase 05/16/23 E78.5 - Hyperlipidemia, unspecified, I10 - Essential (primary) hypertension, R73.01 - Impaired fasting glucose Aspartate Amino Transferase 05/16/23 E78.5 - Hyperlipidemia, unspecified, I10 - Essential (primary) hypertension, R73.01 - Impaired fasting glucose Basic Metabolic Panel Fasting 05/16/23 E78.5 - Hyperlipidemia, unspecified, I10 - Essential (primary) hypertension, R73.01 - Impaired fasting glucose Hemoglobin A1c 05/16/23 E78.5 - Hyperlipidemia, unspecified, I10 - Essential (primary) hypertension, R73.01 - Impaired fasting glucose Lipid Panel 05/16/23 E78.5 - Hyperlipidemia, unspecified, I10 - Essential (primary) hypertension, R73.01 - Impaired fasting glucose Coding Level of Care Code Est Pt Level 4 (32559) Diagnoses Pure hypercholesterolemia E78.00 Hyperlipidemia type: pure hypercholesterolemia Essential hypertension I10 Impaired fasting glucose R73.01 CKD (chronic kidney disease) stage 3, GFR 30-59 ml/min N18.30
== END 2023-02-01 13:42 | disposition home or self-care (01) ==
PROVIDERS: PCP Internal Medicine; Visit Provider Internal Medicine
DX: I12.9 Hypertensive chronic kidney disease with stage 1 through stage 4 chronic kidney disease, or unspecified chronic kidney disease (principal); E78.00 Pure hypercholesterolemia, unspecified; R73.01 Impaired fasting glucose; N18.30 Chronic kidney disease, stage 3 unspecified
CPT/HCPCS: 99214

== ENCOUNTER 2023-03-14 13:05 | Outpatient (REF) | payer MEDICARE, SELFPAY | END 2023-03-14 13:06 | disposition home or self-care (01) | LOC: HO.MAMMO 13:05 | PROVIDERS: PCP Internal Medicine; Visit Provider Internal Medicine | DX: Z12.31 Encounter for screening mammogram for malignant neoplasm of breast (principal) | CPT/HCPCS: 77063; 77067 ==

== ENCOUNTER → 2023-03-14 13:15 | Outpatient (BNV) | payer MEDICARE, SELFPAY | PROVIDERS: PCP Internal Medicine; Visit Provider Radiology Diagnostic Radiology | DX: Z12.31 Encounter for screening mammogram for malignant neoplasm of breast (principal) | CPT/HCPCS: 77063; 77067 ==

== ENCOUNTER → 2023-04-19 10:36 | Outpatient (REF) | payer MEDICARE, SELFPAY ==
--- NOTE | 2023-04-19 10:39 | ECG_ITS ---
Test Reason : htn Blood Pressure : / mmHG Vent. Rate : 077 BPM Atrial Rate : 077 BPM P-R Int : 120 ms QRS Dur : 076 ms QT Int : 378 ms P-R-T Axes : 046 041 048 degrees QTc Int : 427 ms Normal sinus rhythm Normal ECG When compared with ECG of 14-JAN-2009 14:28, No significant change was found Referred By: Zo Beaulieu Electronically Signed By:Marcial Ni
[2023-04-19 12:05] LABS: Estimated Average Glucose 108 mg/dL; Hemoglobin A1c % 5.4 % (<6.0)
[2023-04-19 12:34] LABS: Alanine Aminotransferase 10 U/L (0-31); Anion Gap 12 (12-20); Aspartate Amino Transferase 21 U/L (5-31); Blood Urea Nitrogen 18 mg/dL (9-16); Calcium 9.7 mg/dL (8.4-10.2); Carbon Dioxide 24 mmol/L (22-29); Chloride 108 mmol/L (96-108); Cholesterol 213 mg/dL (<200); Estimated Glomerular Filt Rate 42; Glucose Fasting 83 mg/dL (60-99); HDL Cholesterol 71 mg/dL (>40); LDL Cholesterol Calculated 126 mg/dL (<100); Potassium 4.9 mmol/L (3.3-5.1); Sodium 139 mmol/L (135-145); Triglycerides 84 mg/dL (<150)
== END ==
LOC: HO.CARD 10:36
PROVIDERS: Visit Provider Internal Medicine
DX: Z01.818 Encounter for other preprocedural examination (principal); I10 Essential (primary) hypertension; E78.5 Hyperlipidemia, unspecified; R73.01 Impaired fasting glucose
CPT/HCPCS: 36415; 80048; 80061; 83036; 84450; 84460; 93005

== ENCOUNTER → 2023-04-19 10:39 | Outpatient (BNV) | payer MEDICARE, SELFPAY | PROVIDERS: Visit Provider Internal Medicine Cardiovascular Disease | DX: I10 Essential (primary) hypertension (principal) | CPT/HCPCS: 93010 ==

== ENCOUNTER 2023-04-25 11:49 | Outpatient (AMB) | payer MEDICARE, SELFPAY ==
[2023-04-25 12:46] VITALS: BP 124/60; PULSE 78; O2SAT 98; BMI 25.1
--- NOTE | 2023-04-25 12:46 | MHC.PC.OV ---
Vital Signs 04/25/23 12:46 Height 5 ft 1 in Weight 133 lb BMI 25.1 BP 124/60 Blood Pressure Location Rt brachial Position Sitting Pulse 78 Pulse Source Pulse Oximeter Pulse Oximetry (%) 98 Oxygen Delivery Method Room Air Intake Visit Reasons: Lt eye cataract Dr. Waite 05/02/23 Intake Note: Pt is here today for Pre O, Lt eye cataract surgery on 05/02/[address] Waite. Allergies No Known Allergies [No Known Allergies*] Allergy (Verified 04/25/23 13:56) Medication List - Last Reconciled 04/25/23 by Zo Beaulieu MD cholecalciferol (vitamin D3) 50 mcg PO DAILY clobetasol 0.05% grams topical DAILY PRN duloxetine 60 mg PO DAILY enalapril maleate 10 mg PO DAILY estradiol 1 patch topical 2XW famotidine 40 mg PO BID folic acid 1 mg PO DAILY metoprolol succinate ER 50 mg PO DAILY modafinil take 200 mg in am and 100 mg in pm 30 days rosuvastatin 5 mg (1/2 x 10 mg) PO DAILY Tobacco use date assessed: 04/25/23 Fall risk assessment: No Falls in past year Last assessed Fall Risk: 04/25/23 Dental Screening Dental Screen Date: 04/25/23 Did you have a dental visit in the last 12 months?: Yes Did you have a dental problem in the last 6 months where you did not have access to dental care?: No Was dental information given to patient?: Patient has dentist HPI Lt eye cataract Dr. Waite 05/02/23 HPI Details 78-year-old lady with narcolepsy, currently controlled on modafinil, has hypertension and hyperlipidemia, here today for her preoperative exam for cataract surgery OS, scheduled for 05/02/2023, requested by Dr. Waite. He has been compliant with taking her medications, has changed her diet, has started walking again for exercise. She had recent fasting labs done which showed improvement in her lipid levels after starting back again on rosuvastatin 5 mg daily. Hypertension stable controlled on metoprolol succinate ER 50 mg once a day and enalapril maleate 10 mg daily. She has been feeling well with no complaints at present time except for blurry vision in left eye [facility] Medical History (Updated 04/25/23 @ 13:55 by Zo Beaulieu MD) Impaired fasting glucose Lichen sclerosus Hx of gastritis Narcolepsy Rotator cuff impingement syndrome of left shoulder Lumbar radiculopathy, right Arthritis of both hands Surgical History Hx of colonoscopy H/O microdiscectomy History of bowel resection Family History Brother S/P TAVR (transcatheter aortic valve replacement) Social History Housing: House Alcohol intake: unknown Patient Tobacco Use Status: Former Tobacco user e-Cigarette/Vaping Use: Never Used Current occupational status: retired Current occupation: right Handed Cognitive needs: No Hearing needs: No Vision needs: Yes Questionnaire Thrive Questionnaire Date Thrive assessed: 11/02/22 AUDIT C Alcohol Use Questionnaire (AUDIT-C) 1. How often do you have a drink containing alcohol?: Never 2. How many drinks containing alcohol do you have on a typical day when you are drinking?: 1 or 2 3. How often do you have six or more drinks on one occasion?: Never Total Score: 0 Score Reviewed/Action Taken: Yes INDIRA-7 AMB Questionnaire INDIRA-7 Date INDIRA - 7 assessed: 11/02/22 Source: Developed by Drs. Brian Colon, Althea Harry, Chalo Murray and colleagues, with an educational aisha from [employer]. Review of Systems Const Denies body aches and Denies weakness Eyes Reports blurry vision (left) ENT Reports no additional complaints Card Denies chest pain, Denies chest pain with activity, Denies syncope, Denies edema, Denies lightheadedness, Denies palpitations and Denies dyspnea Resp Denies cough, Denies dyspnea and Denies wheezing GI Denies bloating, Denies change in bowel habits and Denies heartburn Denies hematuria, Denies urinary frequency and Denies dysuria Musc Denies abnormal gait, Denies muscle weakness, Denies numbness and Denies radiating pain into limb Neuro Denies abnormal gait, Denies syncope, Denies numbness and Denies weakness Endo Denies palpitations Azam/Lymph Reports no additional complaints Aller/Immun Denies wheezing Physical exam (Primary Care) Vital Signs: Last Vital Signs Pulse 78 04/25/23 12:46 BP 124/60 04/25/23 12:46 Pulse Ox 98 04/25/23 12:46 Oxygen Delivery Method Room Air 04/25/23 12:46 BMI result Body Mass Index 25.1 Tobacco/Smoking Status: Tobacco use Status Tobacco use date assessed 04/25/23 04/25/23 12:55 Patient Tobacco Use Status Former Tobacco user 04/25/23 12:50 e-Cigarette/Vaping Use Never Used 04/25/23 12:50 Thrive Assessment: Date of Thrive Assessment Date Thrive assessed 11/02/22 04/25/23 12:50 Const General: cooperative, comfortable and no acute distress Orientation/consciousness: patient oriented x3 HENMT Head: Yes normocephalic Ears: external ears normal General nose exam: Normal external nose present Face and sinus: Yes face symmetric Mouth: Normal oral and palatal mucosa present, oropharynx normal and moist mucous membranes Eyes General: appearance normal, both eyes and all related structures Neck Neck: Yes full ROM, Yes no lymphadenopathy and Yes supple Thyroid: Thyroid normal Resp Effort & Inspection: normal respiratory effort and able to speak in complete sentences Auscultation: clear to auscultation bilaterally Cardio Rate: regular rate Rhythm: regular rhythm Heart sounds: S1 normal heart sound present and S2 normal heart sound present GI Inspection: Yes normal to inspection Palpation (GI): Soft to palpation, nontender, no guarding and no masses Auscultation: normal bowel sounds General: Yes no CVA tenderness Back/Spine/Pelvis Back: no CVA tenderness and No back tenderness Skin General skin exam: no rashes or lesions noted Neuro General: patient oriented x3, gait normal, moves all extremities, Normal light touch and pain sensation, no focal motor deficits and CN's II-XI intact bilaterally Extrem General: Yes full ROM, Yes no joint enlargement, Yes no pedal edema and Yes normal gait Results Reviewed Results Reviewed: Name: Azalia Coleman Age/Sex: 78/F : 1945 Unit#: [id number] Attend Dr: Zo Beaulieu MD Re04/19/23 Status: REG REF Location: [facility] Disch: SPEC : [id number] LENARD: 04/19/23 STATUS: COMP REQ : [id number] RECD: 04/19/[address] [facility] [address]: Zo Beaulieu MD COMP: 04/19/23-1233 ENTERED: 04/19/23-1040 [facility] DR: ORDERED: Met Prof Fast, AST, ALT, Lipid Panel Test Result Flag Reference Sodium 139 135-145 mmol/L Potassium 4.9 3.3-5.1 mmol/L CL 108 96-108 mmol/L CO2 24 22-29 mmol/L Gap 12 12-20 BUN 18 H 9-16 mg/dL Creat 1.24 0.5-1.4 mg/dL EGFR 42 NOTE: For -[place] individuals, multiply the result by 1.210. Chronic Kidney Disease: Estimated GFR < 60 mL/min/1.73m2 Severe Kidney Disease: Estimated GFR < 15 mL/min/1.73m2 FBS 83 60-99 mg/dL CA 9.7 8.4-10.2 mg/dL AST (GOT) 21 5-31 U/L ALT (GPT) 10 0-31 U/L Triglyceride 84 <150 mg/dL Desirable Triglyceride: less than 150 mg/dL Borderline High Triglyceride 150-199 mg/dL High Triglyceride: 200-499 mg/dL Very High Triglyceride: greater than or equal to 5OO mg/dL Cholesterol 213 H <200 mg/dL Desirable Cholesterol: less than 200 mg/dL Borderline High Cholesterol: 200-239 mg/dL High Cholesterol: greater than 239 mg/dL LDL Calculated 126 H <100 mg/dL Desirable LDL: less than 100 mg/dL Near Optimal/Above Optimal LDL: 110-129 mg/dL Borderline High LDL: 130-159 mg/dL High LDL: 160-189 mg/dL Very High LDL: greater than or equal to 190 mg/dL HDL 71 >40 mg/dL Desirable HDL: greater than 40 mg/dL Assessment and Plan Assessment & Plan (1) Preoperative examination: Code(s): Z01.818 - Encounter for other preprocedural examination Plan: 78 year old lady with hypertension, hyperlipidemia, narcolepsy, here for preoperative clearance for cataract. Pt has surgery OS, requested by Dr. Waite , scheduled for 05/02/2023 . Her hypertension, hyperlipidemia, narcolepsy are stable and controlled on present treatment. Her preoperative exam and latest fasting labs, and EKG are all within normal limits . She has a low cardiac risk index for proposed surgery. (2) Hyperlipidemia: Code(s): E78.5 - Hyperlipidemia, unspecified Qualifiers: Hyperlipidemia type: pure hypercholesterolemia Qualified Code(s): E78.00 - Pure hypercholesterolemia, unspecified Plan: Reviewed recent fasting lipid profile with patient with improved LDL cholesterol levels as well as triglycerides compared to last check . Continue rosuvastatin 5 mg daily , in addition to adherence to low-cholesterol diet and regular exercise, at least 30 minutes 3 to 4 times a week. Advised patient to make healthy food choices, eat more fruits, vegetables, whole grains, wild caught fish and low-fat dairy. Limit amount of meat and fried or fatty food products, as well as processed foods and fast foods. Follow-up scheduled with repeat fasting lipid panel in 6 months. (3) Essential hypertension: Code(s): I10 - Essential (primary) hypertension Plan: Blood pressure at goal of less than 130/80. Continue metoprolol succinate ER 50 mg daily, enalapril maleate 10 mg daily.. Reinforced importance of following a low sodium diet, getting regular exercise, and lowering stress levels. (4) Narcolepsy: Code(s): G47.419 - Narcolepsy without cataplexy Qualifiers: Narcolepsy type: primary without cataplexy Qualified Code(s): G47.419 - Narcolepsy without cataplexy Plan: Stable and controlled on modafinil, takes 200 mg in the morning and 100 mg in the afternoon (5) Impaired fasting glucose: Code(s): R73.01 - Impaired fasting glucose Plan: Her latest fasting labs and hemoglobin A1c are within normal limits. 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
== END 2023-04-25 16:59 | disposition home or self-care (01) ==
PROVIDERS: PCP Internal Medicine; Visit Provider Internal Medicine
DX: E78.00 Pure hypercholesterolemia, unspecified (principal); I10 Essential (primary) hypertension; G47.419 Narcolepsy without cataplexy; R73.01 Impaired fasting glucose; Z01.818 Encounter for other preprocedural examination
CPT/HCPCS: 99214

== ENCOUNTER 2023-10-31 10:18 | Outpatient (REF) | payer MEDICARE, SELFPAY ==
[2023-10-31 12:06] LABS: Estimated Average Glucose 117 mg/dL; Hemoglobin A1c % 5.7 % (<6.0)
[2023-10-31 13:15] LABS: Alanine Aminotransferase 11 U/L (0-31); Anion Gap 16 (12-20); Aspartate Amino Transferase 23 U/L (5-31); Blood Urea Nitrogen 18 mg/dL (9-16); Calcium 9.6 mg/dL (8.4-10.2); Carbon Dioxide 25 mmol/L (22-29); Chloride 105 mmol/L (96-108); Cholesterol 180 mg/dL (<200); Estimated Glomerular Filt Rate 42; Glucose Fasting 84 mg/dL (60-99); HDL Cholesterol 60 mg/dL (>40); LDL Cholesterol Calculated 101 mg/dL (<100); Potassium 4.8 mmol/L (3.3-5.1); Sodium 141 mmol/L (135-145); Triglycerides 98 mg/dL (<150)
[2023-10-31 13:41] LABS: Vitamin D 25-OH Total 39.3 ng/mL (>30)
== END 2023-10-31 10:19 | disposition home or self-care (01) ==
LOC: HO.WFDLDS 10:18
PROVIDERS: Visit Provider Internal Medicine
DX: R73.01 Impaired fasting glucose (principal); E78.00 Pure hypercholesterolemia, unspecified; I10 Essential (primary) hypertension; Z78.0 Asymptomatic menopausal state
CPT/HCPCS: 36415; 80048; 80061; 82306; 83036; 84450; 84460

== ENCOUNTER 2023-11-01 11:55 | Outpatient (AMB) | payer MEDICARE, SELFPAY ==
[2023-11-01 12:39] VITALS: BP 130/72; PULSE 83; O2SAT 98; BMI 25.8
--- NOTE | 2023-11-01 12:39 | MHC.PC.OV ---
Vital Signs 11/01/23 12:39 Height 5 ft 1 in Weight 136 lb 6 oz BMI 25.8 BP 130/72 Blood Pressure Location Lt brachial Position Sitting Pulse 83 Pulse Source Pulse Oximeter Pulse Oximetry (%) 98 Oxygen Delivery Method Room Air Intake Visit Reasons: Annual PE/OK per Dr. Beaulieu Intake Note: Pt is here today for Annual Physical. Last mammogram 03/14/23 last colonoscopy 08/18/18 No Bone denisty noted. Allergies No Known Allergies [No Known Allergies*] Allergy (Verified 11/01/23 12:40) Medication List - Last Reconciled 11/01/23 by Zo Beaulieu MD cholecalciferol (vitamin D3) 50 mcg PO DAILY clobetasol 0.05% grams topical 3XW PRN duloxetine 60 mg PO DAILY enalapril maleate 10 mg PO DAILY estradiol 1 patch topical 2XW folic acid 1 mg PO DAILY metoprolol succinate ER 50 mg PO DAILY modafinil take 200 mg in am and 100 mg in pm 30 days rosuvastatin 5 mg (1/2 x 10 mg) PO DAILY Tobacco use date assessed: 11/01/23 Fall risk assessment: No Falls in past year Last assessed Fall Risk: 11/01/23 Dental Screening Dental Screen Date: 11/01/23 Did you have a dental visit in the last 12 months?: Yes Did you have a dental problem in the last 6 months where you did not have access to dental care?: No Was dental information given to patient?: Patient has dentist HPI Annual PE/OK per Dr. Beaulieu HPI Details 78-year-old lady with narcolepsy, currently controlled on modafinil, has hypertension and hyperlipidemia, has prediabetes, here today for her physical exam. Last mammogram 03/14/23, last colonoscopy was in 2019, due again now per Dr. Esteves as she has had tubular adenomas in the past removed. Blood pressure controlled on current treatment Complains of mildly pruritic rash on her face around angles of her mouth. [facility] Medical History Impaired fasting glucose Lichen sclerosus Hx of gastritis Narcolepsy Rotator cuff impingement syndrome of left shoulder Lumbar radiculopathy, right Arthritis of both hands Surgical History History of cataract surgery Hx of colonoscopy H/O microdiscectomy History of bowel resection Family History Brother S/P TAVR (transcatheter aortic valve replacement) Social History Housing: House Alcohol intake: unknown Patient Tobacco Use Status: Former Tobacco user e-Cigarette/Vaping Use: Never Used service: No Current occupational status: retired Current occupation: right Handed Cognitive needs: No Hearing needs: No Vision needs: Yes Questionnaire PHQ-9 Over the last 2 weeks, how often have you been bothered by any of the following problems? 1. Little interest or pleasure in doing things: not at all 2. Feeling down, depressed, or hopeless: not at all 3. Trouble falling or staying asleep, or sleeping too much: not at all 4. Feeling tired or having little energy: not at all 5. Poor appetite or overeating: not at all 6. Feeling bad about yourself - or that you are a failure or have let yourself or your family down: not at all 7. Trouble concentrating on things, such as reading the newspaper or watching television: not at all 8. Moving or speaking so slowly that other people could have noticed. Or the opposite - being so fidgety or restless that you have been moving around a lot more than usual: not at all 9. Thoughts that you would be better off or of hurting yourself in some way: not at all Total score: 0 Depression Screening Interpretation: Negative Depression Screening Done: Yes 88698 - PHQ-9 Billing: Yes Source: Developed by Drs. Brian Colon, Althea Harry, Chalo Murray and colleagues, with an educational aisha from [employer]. Thrive Questionnaire Date Thrive assessed: 11/02/22 I am a: Patient What is your living situation today?: I have a steady place to live Within the past 12 months, did the food you bought not last and you didn't have the money to get more?: I choose not to answer this question Within the past 12 months, did you worry whether your food would run out before you got money to buy more?: Never true Do you have trouble paying for medicines?: No Do you have trouble getting transportation to medical appointments?: No Do you have trouble paying your heating and electricity bill?: No Do you have trouble taking care of your child, family member or friend?: No Do you have trouble with day-to-day activities such as bathing, preparing meals, shopping, managing finances, etc.?: No Are you interested in more education?: No Please select the resources that you would like help with: None Currently or been in a relationship where the following occur: I choose not to answer THRIVE Score: 0 AUDIT C Alcohol Use Questionnaire (AUDIT-C) 1. How often do you have a drink containing alcohol?: Never Total Score: 0 INDIRA-7 AMB Questionnaire INDIRA-7 Date INDIRA - 7 assessed: 11/02/22 Feeling nervous, anxious, or on edge: 0 = Not at all Not being able to stop or control worryin = Not at all Worrying too much about different things: 0 = Not at all Trouble relaxin = Not at all Being so restless that it is hard to sit still: 0 = Not at all Becoming easily annoyed or irritable: 0 = Not at all Feeling afraid as if something awful might happen: 0 = Not at all Total INDIRA-7 score (0-4 normal; 5-9 mild; 10-14 moderate; 15-21 severe): 0 Source: Developed by Drs. Brian Colon, Althea Harry, Chalo Murray and colleagues, with an educational aisha from [employer]. INDIRA-7 Assessment Billing INDIRA-7 Assessment Tool: INDIRA-7 Assessment 12092 Review of Systems Const Denies body aches and Denies weakness Eyes Reports blurry vision (left) ENT Reports no additional complaints Card Denies chest pain, Denies chest pain with activity, Denies syncope, Denies edema, Denies lightheadedness, Denies palpitations and Denies dyspnea Resp Denies cough, Denies dyspnea and Denies wheezing GI Denies bloating, Denies change in bowel habits and Denies heartburn Denies hematuria, Denies urinary frequency and Denies dysuria Musc Denies abnormal gait, Denies muscle weakness, Denies numbness and Denies radiating pain into limb Skin/Breast Reports as per HPI, Denies breast pain and Denies breast mass Neuro Denies abnormal gait, Denies syncope, Denies numbness and Denies weakness Psych Reports no additional complaints Endo Denies palpitations Azam/Lymph Reports no additional complaints Aller/Immun Denies wheezing Physical exam (Primary Care) Vital Signs: Last Vital Signs Pulse 83 11/01/23 12:39 BP 130/72 11/01/23 12:39 Pulse Ox 98 11/01/23 12:39 Oxygen Delivery Method Room Air 11/01/23 12:39 BMI result Body Mass Index 25.8 Tobacco/Smoking Status: Tobacco use Status Tobacco use date assessed 11/01/23 11/01/23 12:41 Patient Tobacco Use Status Former Tobacco user 11/01/23 12:41 e-Cigarette/Vaping Use Never Used 11/01/23 12:41 PHQ-9: PHQ-9 Score PHQ-9: Total score 0 11/01/23 13:04 Depression Screening Interpretation: Negative Thrive Assessment: Date of Thrive Assessment Date Thrive assessed 11/02/22 11/01/23 12:41 Currently or been in a relationship where the following occur: I choose not to answer Const General: cooperative, comfortable and no acute distress Orientation/consciousness: patient oriented x3 HENMT Head: Yes normocephalic Ears: external ears normal General nose exam: Normal external nose present Face and sinus: Yes face symmetric Mouth: Normal oral and palatal mucosa present, oropharynx normal and moist mucous membranes Eyes General: appearance normal, both eyes and all related structures Neck Neck: Yes full ROM, Yes no lymphadenopathy and Yes supple Thyroid: Thyroid normal Chest Breast/axilla palpation: normal palpation of the breasts Resp Effort & Inspection: normal respiratory effort and able to speak in complete sentences Auscultation: clear to auscultation bilaterally Cardio Rate: regular rate Rhythm: regular rhythm Heart sounds: S1 normal heart sound present and S2 normal heart sound present GI Inspection: Yes normal to inspection Palpation (GI): Soft to palpation, nontender, no guarding and no masses Auscultation: normal bowel sounds General: Yes no CVA tenderness Back/Spine/Pelvis Back: no CVA tenderness and No back tenderness Skin Other: Rough patch on lower cheek Neuro General: patient oriented x3, gait normal, moves all extremities, Normal light touch and pain sensation, no focal motor deficits and CN's II-XI intact bilaterally Extrem General: Yes full ROM, Yes no joint enlargement, Yes no pedal edema and Yes normal gait Psych Appearance: grossly normal and well kempt Affect: normal affect Results Reviewed Results Reviewed: Name: Azalia Coleman Age/Sex: 78/F : 1945 Unit#: [id number] Attend Dr: Zo Beaulieu MD Re10/31/23 Status: DEP [facility] Disch: SPEC : [id number] LENARD: 10/31/23-1013 STATUS: COMP REQ : [id number] RECD: 10/31/23-[address]: Zo Beaulieu MD COMP: 10/31/23 ENTERED: 10/31/23-[address] [facility] [address]: ORDERED: Met Prof Fast, AST, ALT, Lipid Panel, Vitamin D 25-OH Test Result Flag Reference Sodium 141 135-145 mmol/L Potassium 4.8 3.3-5.1 mmol/L CL 105 96-108 mmol/L CO2 25 22-29 mmol/L Gap 16 12-20 BUN 18 H 9-16 mg/dL Creat 1.24 0.5-1.4 mg/dL EGFR 42 NOTE: For -Chinese individuals, multiply the result by 1.210. Chronic Kidney Disease: Estimated GFR < 60 mL/min/1.73m2 Severe Kidney Disease: Estimated GFR < 15 mL/min/1.73m2 FBS 84 60-99 mg/dL CA 9.6 8.4-10.2 mg/dL AST (GOT) 23 5-31 U/L ALT (GPT) 11 0-31 U/L Triglyceride 98 <150 mg/dL Desirable Triglyceride: less than 150 mg/dL Borderline High Triglyceride 150-199 mg/dL High Triglyceride: 200-499 mg/dL Very High Triglyceride: greater than or equal to 5OO mg/dL Cholesterol 180 <200 mg/dL Desirable Cholesterol: less than 200 mg/dL Borderline High Cholesterol: 200-239 mg/dL High Cholesterol: greater than 239 mg/dL LDL Calculated 101 H <100 mg/dL Desirable LDL: less than 100 mg/dL Near Optimal/Above Optimal LDL: 110-129 mg/dL Borderline High LDL: 130-159 mg/dL High LDL: 160-189 mg/dL Very High LDL: greater than or equal to 190 mg/dL HDL 60 >40 mg/dL Desirable HDL: greater than 40 mg/dL Note: This HDL assay may give artificially low results in patients with liver disease. Vit D 25-OH Tot 39.3 >30 ng/mL Health Based Reference Values* < 20 ng/mL Deficient 20-30 ng/mL Insufficient > 30 ng/mL Sufficient Laboratory Tests 10/31/23 10:19 Estimat Average Glucose 117 Hemoglobin A1c % 5.7 Assessment and Plan Assessment & Plan (1) Annual visit for general adult medical examination with abnormal findings: Code(s): Z00.01 - Encounter for general adult medical examination with abnormal findings Plan: Fasting labs reviewed with patient. Continue regular dental visit every 6 months and regular eye exams, at least every 2 years. Take adequate calcium in diet and vitamin-D 3 at 2000 IU per cap once a day, in addition to weight-bearing exercises to help maintain good muscle tone and weight control. Instructed to do self-breast exam, and continue to get yearly mammogram. Up-to-date with her screening colonoscopy. Reminded to get yearly flu vaccine and COVID booster. Reminded to get her 2nd shingles dose and is up-to-date with her pneumonia vaccine (2) Eczema: Code(s): L30.9 - Dermatitis, unspecified (3) Essential hypertension: Code(s): I10 - Essential (primary) hypertension Plan: Blood pressure at goal of less than 130/80. Continue with current medication. Reinforced importance of following a low sodium diet, getting regular exercise, and lowering stress levels. (4) Hyperlipidemia: Code(s): E78.5 - Hyperlipidemia, unspecified Qualifiers: Hyperlipidemia type: pure hypercholesterolemia Qualified Code(s): E78.00 - Pure hypercholesterolemia, unspecified Plan: Reviewed recent fasting lipid profile with patient with levels within normal limit . Continue rosuvastatin 5 mg daily , in addition to adherence to low-cholesterol diet and regular exercise, at least 30 minutes 3 to 4 times a week. Advised patient to make healthy food choices, eat more fruits, vegetables, whole grains, wild caught fish and low-fat dairy. Limit amount of meat and fried or fatty food products, as well as processed foods and fast foods. Follow-up scheduled with repeat fasting lipid panel in 6 months. (5) Narcolepsy: Code(s): G47.419 - Narcolepsy without cataplexy Qualifiers: Narcolepsy type: primary without cataplexy Qualified Code(s): G47.419 - Narcolepsy without cataplexy Plan: Continue modafinil (6) Lichen sclerosus: Code(s): L90.0 - Lichen sclerosus et atrophicus Plan: Currently on estradiol patch twice a day Orders: Orders Vitamin D 25-OH Total 04/14/24 E78.00 - Pure hypercholesterolemia, unspecified, G47.419 - Narcolepsy without cataplexy, I10 - Essential (primary) hypertension, L90.0 - Lichen sclerosus et atrophicus Aspartate Amino Transferase 04/14/24 E78.00 - Pure hypercholesterolemia, unspecified, G47.419 - Narcolepsy without cataplexy, I10 - Essential (primary) hypertension, L90.0 - Lichen sclerosus et atrophicus Lipid Panel 04/14/24 E78.00 - Pure hypercholesterolemia, unspecified, G47.419 - Narcolepsy without cataplexy, I10 - Essential (primary) hypertension, L90.0 - Lichen sclerosus et atrophicus Alanine Aminotransferase 04/14/24 E78.00 - Pure hypercholesterolemia, unspecified, G47.419 - Narcolepsy without cataplexy, I10 - Essential (primary) hypertension, L90.0 - Lichen sclerosus et atrophicus Basic Metabolic Panel Fasting 04/14/24 E78.00 - Pure hypercholesterolemia, unspecified, G47.419 - Narcolepsy without cataplexy, I10 - Essential (primary) hypertension, L90.0 - Lichen sclerosus et atrophicus Medications: New mometasone 0.1% 1 appl topical DAILY PRN 15 grams 0RF skin irritation L30.9 - Dermatitis, unspecified Coding Level of Care Code Est Pt Prev Care >65y(45449) Diagnoses Annual visit for general adult medical examination with abnormal findings Z00.01 Eczema L30.9 Essential hypertension I10 Pure hypercholesterolemia E78.00 Hyperlipidemia type: pure hypercholesterolemia Primary narcolepsy without cataplexy G47.419 Narcolepsy type: primary without cataplexy Lichen sclerosus L90.0 Additional Codes INDIRA-7 Assessment Billing - INDIRA-7 Assessment Tool: INDIRA-7 Assessment 93846 ([id number])
== END 2023-11-01 13:09 | disposition home or self-care (01) ==
PROVIDERS: PCP Internal Medicine; Visit Provider Internal Medicine
DX: Z00.01 Encounter for general adult medical examination with abnormal findings (principal); L30.9 Dermatitis, unspecified; I10 Essential (primary) hypertension; E78.00 Pure hypercholesterolemia, unspecified; G47.419 Narcolepsy without cataplexy; L90.0 Lichen sclerosus et atrophicus

== ENCOUNTER → 2023-11-01 11:55 | Outpatient (BNVA) | payer MEDICARE, SELFPAY | PROVIDERS: PCP Internal Medicine; Visit Provider Internal Medicine | DX: Z00.01 Encounter for general adult medical examination with abnormal findings (principal); L30.9 Dermatitis, unspecified; I10 Essential (primary) hypertension; E78.00 Pure hypercholesterolemia, unspecified; G47.419 Narcolepsy without cataplexy; L90.0 Lichen sclerosus et atrophicus | CPT/HCPCS: 96127 ==

== ENCOUNTER 2023-11-15 10:24 | Day surgery (SDC) | payer MEDICARE, SELFPAY ==
--- NOTE | 2023-11-14 10:14 | HO.ANESPROP2 ---
Documented by User: Shanti Nunez NP 11/14/23 10:16 HPI - Anesthesia Eval Consult details Narrative: 78yo F for Upper Endoscopy and Colonoscopy PMFSH Active Problems Active Problems: All Active Problems Impaired fasting glucose (Acute) Lichen sclerosus (Acute) Narcolepsy (Acute) Hyperlipidemia (Acute) Essential hypertension (Acute) Past Medical History Medical History Impaired fasting glucose Lichen sclerosus Hx of gastritis Narcolepsy Rotator cuff impingement syndrome of left shoulder Lumbar radiculopathy, right Arthritis of both hands Family History Family History Brother S/P TAVR (transcatheter aortic valve replacement) Surgical History Surgical History History of cataract surgery Hx of colonoscopy H/O microdiscectomy History of bowel resection Social History Social History Housing: House Alcohol intake: unknown Patient Tobacco Use Status: Former Tobacco user e-Cigarette/Vaping Use: Never Used Have you been hit, kicked, punched, or otherwise hurt by someone within the past year? If so, by whom?: No Are you DNR?: No Advance Directives: No Advance Directives Information Provided: Yes Nutrition Risks: No Nutritional Risk service: No Current occupational status: retired Current occupation: right Handed Cognitive needs: No Hearing needs: No Vision needs: Yes Meds Allergies Allergy/AdvReac Type Severity Reaction Status Date / Time No Known Allergies Allergy Verified 11/01/23 12:40 [No Known Allergies*] Home Medications ?Medication ?Instructions ?Recorded ?Confirmed ?Last Taken ?Type cholecalciferol (vitamin D3) 50 50 mcg PO DAILY 12/24/19 11/01/23 Unknown History mcg (2,000 unit) capsule estradiol 0.0375 mg/24 hr 1 patch topical 2XW 12/24/19 11/01/23 Unknown History semiweekly transdermal patch folic acid 1 mg tablet 1 mg PO DAILY 12/24/19 11/01/23 Unknown History clobetasol 0.05 % topical ointment g topical 3XW PRN 11/01/23 11/01/23 Unknown History Exam Pertinent Lab Results Pertinent Lab Results: Laboratory Tests 07/09/22 10/31/23 10:30 10:14 WBC 5.7 Hgb 12.0 Hct 37.9 Plt Count 316 Sodium 141 Potassium 4.8 Chloride 105 Carbon Dioxide 25 BUN 18 H Creatinine 1.24 Assessment and Plan Assessment Anesthesia Assessment: Chart Reviewed Documented by User: Cammy Rodriguez MD 11/15/23 12:40 PMFSH Past Medical History Medical History Impaired fasting glucose Lichen sclerosus Hx of gastritis Narcolepsy Rotator cuff impingement syndrome of left shoulder Lumbar radiculopathy, right Arthritis of both hands Family History Family History Brother S/P TAVR (transcatheter aortic valve replacement) Family history of problems with anesthesia: No Surgical History Surgical History History of cataract surgery Hx of colonoscopy H/O microdiscectomy History of bowel resection History of Problems with Anesthesia: No Social History Social History Housing: House Alcohol intake: unknown Patient Tobacco Use Status: Former Tobacco user e-Cigarette/Vaping Use: Never Used Have you been hit, kicked, punched, or otherwise hurt by someone within the past year? If so, by whom?: No Are you DNR?: No Advance Directives: No Advance Directives Information Provided: Yes Nutrition Risks: No Nutritional Risk service: No Current occupational status: retired Current occupation: right Handed Cognitive needs: No Hearing needs: No Vision needs: Yes Meds Allergies Allergy/AdvReac Type Severity Reaction Status Date / Time No Known Allergies Allergy Verified 11/01/23 12:40 [No Known Allergies*] Home Medications ?Medication ?Instructions ?Recorded ?Confirmed ?Last Taken ?Type cholecalciferol (vitamin D3) 50 50 mcg PO DAILY 12/24/19 11/01/23 Unknown History mcg (2,000 unit) capsule estradiol 0.0375 mg/24 hr 1 patch topical 2XW 12/24/19 11/01/23 Unknown History semiweekly transdermal patch folic acid 1 mg tablet 1 mg PO DAILY 12/24/19 11/01/23 Unknown History clobetasol 0.05 % topical ointment g topical 3XW PRN 11/01/23 11/01/23 Unknown History Exam Airway Mallampati Class: II TM Dist: >3cm Neck ROM: Full Heart: rrr Lungs: cta Assessment and Plan Assessment Anesthesia Assessment: Anesthesia Plan Discussed Final Anesthetic Review Family History of Problems with Anesthesia: No History of Problems with Anesthesia: No NPO: Yes ASA Class: II Final Preanesthetic Review: No Changes in Pt Med Stat, Meds/Allgs Chart Reviewed, Consent Obtained/Reviewed and Anes Risks/Benef Reviewed Patient Risk: Low Procedure Risk: Low Anesthetic Plan Anesthetic Plan: MAC: Disposition: Standard PACU
[2023-11-15 11:50] VITALS: BP 130/74; PULSE 79; RESP 18; TEMP 36.6; O2SAT 98; BMI 24.4
[2023-11-15] MEDS: Lactated Ringers 1,000 ML 100 ML IVCONT (12:16)
--- NOTE | 2023-11-15 12:34 | MHC.SHP ---
Pre-Procedural Eval Section A - 24 Hr Update-Section A only Date of Service: 11/15/23 The patient is an INPATIENT: No Changes since office visit: No Cold of Flu in the past 2 weeks, No New Medical Problems, No Changes in Medication and No Patient answered all questions The patient has been examined within 24 hours of the surgical procedure. The History & Physical has been completed within 30 days and I have reviewed it.: Yes Section B - Complete if H&P > 30 days Chief Complaint: gerd,screening Allergies: Allergies Allergy/AdvReac Type Severity Reaction Status Date / Time No Known Allergies Allergy Verified 11/01/23 12:40 [No Known Allergies*] Plan I have reviewed the history and physical and performed a pertinent physical examination on my patient. No changes have occurred unless specified. Time Spent With Patient Time: Total time managing care of this patient today ____ minutes.
[2023-11-15 13:10] VITALS: BP 115/53; PULSE 70; RESP 15; TEMP 36.1; O2SAT 98
[2023-11-15 13:25] VITALS: BP 141/55; PULSE 69; RESP 16; O2SAT 99
--- NOTE | 2023-11-15 13:32 | OP_ITS ---
DATE OF SERVICE: 11/15/2023 SURGEON: Ken Esteves MD INDICATIONS: 1. Gastroesophageal reflux disease. 2. Colon cancer screening. PREOPERATIVE DIAGNOSIS: POSTOPERATIVE DIAGNOSIS: PROCEDURE PERFORMED: Upper endoscopy with biopsy, colonoscopy to the terminal ileum. ESTIMATED BLOOD LOSS: COMPLICATIONS: ANESTHESIA: Monitored anesthesia care. ASSISTANTS: SPECIMENS: DESCRIPTION OF PROCEDURE: A history and physical was performed. The risks and benefits of the procedure were explained to the patient and informed consent was obtained. The patient was placed in the left lateral decubitus position. The Olympus video gastroscope was introduced into the esophagus, stomach, and duodenum. Examination was performed and the scope was removed. She was repositioned for colonoscopy. A digital rectal exam was performed and was found to be normal. The Olympus pediatric video colonoscope was introduced into the rectum and advanced to the cecum. The cecum was identified by transillumination, palpation, and identification of ileocecal valve. Examination was performed and the scope was removed. She tolerated both procedures well and was returned to recovery area in stable condition. FINDINGS: Upper endoscopy, esophagus: The esophagus was normal. There was no esophagitis. Biopsies were obtained from the distal esophagus to evaluate for evidence of Chan esophagus. Stomach: The stomach showed no evidence of masses, ulcers, or polyps. Antral biopsies were obtained. Duodenum: The 2nd portion was normal and the bulb was normal. Colonoscopy: The terminal ileum was examined and appeared normal. The visualized colonic mucosa was normal. The quality of the prep was good. No polyps were identified. Retroflexed examination was normal. There was decreased sphincter tone. IMPRESSION: 1. Normal upper endoscopy. 2. Normal colonoscopy. RECOMMENDATIONS: 1. Follow up the biopsy results. 2. Follow up screening colonoscopy could be done in 10 years. This is optional based on age. MD BECKIE Cabrales/JESSENIAL / [id number]
[2023-11-15 13:40] VITALS: BP 132/63; PULSE 69; RESP 17; TEMP 36.6; O2SAT 99
== END 2023-11-15 14:09 | disposition home or self-care (01) ==
PROVIDERS: PCP Internal Medicine; Visit Provider Internal Medicine Gastroenterology
PROC: (CPT 43239; principal; 2023-11-15 11:20)
DX: K21.9 Gastro-esophageal reflux disease without esophagitis (principal); K29.60 Other gastritis without bleeding; Z12.11 Encounter for screening for malignant neoplasm of colon; Z86.0101 Personal history of adenomatous and serrated colon polyps; Z83.719 Family history of colon polyps, unspecified; I10 Essential (primary) hypertension; E78.5 Hyperlipidemia, unspecified; L90.0 Lichen sclerosus et atrophicus; Z87.891 Personal history of nicotine dependence; Z79.899 Other long term (current) drug therapy; Z90.49 Acquired absence of other specified parts of digestive tract; Z90.711 Acquired absence of uterus with remaining cervical stump
CPT/HCPCS: 43239; G0105; 88305; 88313; 88342; J2704

== ENCOUNTER 2024-03-19 13:30 | Outpatient (REF) | payer MEDICARE, SELFPAY ==
--- OUTSIDE RECORDS SUMMARY | 2024-03-19 14:50 | XMS_ITS | Clinical Summary ---
Author Organization [facility], Address [address] [place] [address] Phone Care Team Providers Care Postal Worker Name Role Phone Teo Beaulieu MD Primary Care Provider [phone]- [phone] Allergies No known active allergies Medications oxyCODONE-aceta minophen (PERCOCET) 5-325 MG per tablet TAKE 1 TABLET BY MOUTH EVERY 4 HOURS NEEDED FOR SEVERE PAIN 0 Active morphine (MS CONTIN) 15 MG 12 hr tablet Take 15 mg by mouth every 12 (twelve) hours if needed 0 Active modafinil (PROVIGIL) 200 MG tablet Take 200 mg by mouth 2 (two) times a day 0 Active metoprolol succinate XL (TOPROL-XL) 25 MG 24 hr tablet Take 25 mg by mouth at bed time 0 Active famotidine (Pepcid) 40 MG tablet Take 1 tablet by mouth 1 (one) time each day Active estradiol (VIVELLE-DOT) 0.0375 MG/24HR Place 1 patch onto the skin 2 (two) times a week. 0 Active enalapril (VASOTEC) 10 MG tablet Take 10 mg by mouth 1 (one) time each day in the morning 0 Active DULoxetine (CYMBALTA) [address] capsule TAKE 1 CAPSULE BY MOUTH DAILY 0 Active terconazole (TERAZOL 3) 0.8 % vaginal cream 1 application at bedtime Vaginal Once a day 5 Active clobetasol (TEMOVATE) 0.05 % ointment Apply topically 9 Active Cholecalciferol 50 MCG (2000 UT) capsule Take 1 capsule by mouth 1 (one) time each day Active Calcium Carbonate Antacid (Tums Chewy Delights) 1177 MG chewable tablet Acti ve rosuvastatin (Crestor) 5 MG tablet Take 1 tablet (5 mg total) by mouth 1 (one) time each day 30 tablet 11 2 Active folic acid (FOLVITE) 1 MG tablet Take 1 tablet (1 mg total) by mouth 1 (one) time each day 30 tablet 11 4 05/10/19 25 Active Active Problems Problem Noted Date Diagnosed Date Renal stone 01/04/2020 Hyperlipidemia 01/04/2020 Essential hypertension 01/04/2020 Stage 3a chronic kidney disease 01/04/2020 Overview (02/18/2020): Update for Diagnosis Load Anemia 01/04/2020 Fibromyalgia 10/05/2017 Resolved Problems Problem Noted Date Diagnosed Date Resolved Date Menopausal syndrome 02/03/2019 01/04/20 20 Overview (01/04/2020): Last Assessment & Plan: We discussed a general approach to vasomotor symptoms: HRT is appropriate during the perimenopausal transition for symptom control. As Azalia is greater than 10 years past menopause and is >60yo, I would not recommend initiation of HRT at this time due to increased risk of heart disease/VTE/etc. We discussed that there are alternative approaches to pharmacologic management of hot flashes including Gabapentin and SSRI. We also discussed that there are different prescribing practices and I offered her a second opinion with Dr. Alberto. She was amenable to this plan and will schedule a consult. Rheumatoid arthritis 10/05/2017 020 Overview (01/04/2020): 2019R1.3 IMO Load Lichen sclerosus et atrophicus 10/05/2017 01/04/2020 Overview (01/04/2020): Last Assessment & Plan: Stable, rx refilled. Reviewed medication instructions. 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 Immunizations Name Administration Dates Next Due Influenza Split High Dose Pr eservative Free IM 11/05/2017,11/05/2016,11/11/2015,12/06 Influenza TIV (IM) 11/30/2006 Influenza, Quadrivalent, Pre servative Free 12/31/2019,11/23/2018 Pfizer SARS-COV-2 04/21/2020 Pneumococcal Polysaccharide 02/02/2016 Shingrix 12/13/2017 Zoster 12/13/2017 Family History Medical History Relation Comments Cancer Child oldest daughter thyroid Hypertension Child Kidney disease Child youngest daughte r kidney stones Heart disease Father cardiac valve di sease Hypertension Father Diabetes Mother Hypertension Mother Cancer Sibling youngest brother esophageal Hypertension Sibling Relation Status Comments Child Father Mother Sibling Social History Tobacco Use Types Packs/Day Years Used Date Smoking Tobacco: Never Smokeless Tobacco: Never Comments Unknown Sex and Gender Information Value Date Recorded Sex Assigned at Not on file Legal Sex Female 4:31 PM EST Gender Identity Not on file Sexual Orientation Not on file Last Filed Vital Signs Vital Sign Reading Time Taken Comments Blood Pressure 130/60 12/18/2018 12:00 PM EST Pulse - - Temperature - - Respiratory Rate - - Oxygen Saturation - - Inhaled Oxygen Concentration - - Weight 61.2 kg (135 lb) 12/18/2018 12:00 PM EST Height 152.4 cm (5') 12/18/2018 12:00 PM EST Body Mass Index 26.37 12/18/2018 12:00 PM EST Plan of Treatment Health Maintenance Due Date Last Done Comments Pneumococcal Vaccine: 65+ Years (2 of 2 - PCV) 02/01/2017 02/02/2016 Influenza Vaccine (#1) 2023 0, 11/23/2018, 11/05/2017, Additional history exists Hepatitis B Vaccine Aged Out No longe r eligible based on patient's age to complete this topic Insurance [facility] Care Teams Postal Worker Relationship Specialty Start Date End Date Teo Beaulieu MD [address] [place] [address] PCP - General Internal Medicine 04/11/23
--- OUTSIDE RECORDS SUMMARY | 2024-03-19 14:50 | XMS_ITS | Encounter Summary ---
Author Organization [facility], Address [address] [place] [address] Phone Care Team Providers Care Internet Cafe Manager Name Role Phone Teo Beaulieu MD Primary Care Provider [phone]- [phone] Reason for Visit * Reason Comments Med Refill Encounter Details Date Type Department Care Team (Late st Contact Info) Description 02/28/2021 Refill [facility] [address] [place] [phone] Jeffy Ewing MD [facility] [address] [place] [address] Social History Tobacco Use Types Packs/Day Years Used Date Smoking Tobacco: Never Smokeless Tobacco: Never Comments Unknown Sex and Gender Information Value Date Recorded Sex Assigned at Not on file Legal Sex Female 4:31 PM EST Gender Identity Not on file Sexual Orientation Not on file documented as of this encounter Plan of Treatment Not on file documented as of this encounter Visit Diagnoses Not on filedocumented in this encounter Care Teams Internet Cafe Manager Relationship Specialty Start Date End Date Teo Beaulieu MD [address] [facility] [address] [place] [address] PCP - General Internal Medicine 04/11/23 documented as of this encounter
== END 2024-03-19 13:31 | disposition home or self-care (01) ==
LOC: HO.MAMMO 13:30
PROVIDERS: PCP Internal Medicine; Visit Provider Internal Medicine
DX: Z12.31 Encounter for screening mammogram for malignant neoplasm of breast (principal)
CPT/HCPCS: 77063; 77067

== ENCOUNTER → 2024-03-19 13:30 | Outpatient (BNV) | payer MEDICARE, SELFPAY | PROVIDERS: PCP Internal Medicine; Visit Provider Internal Medicine | DX: Z12.31 Encounter for screening mammogram for malignant neoplasm of breast (principal) | CPT/HCPCS: 77063; 77067 ==

== ENCOUNTER 2024-05-07 10:01 | Outpatient (AMB) | payer MEDICARE, SELFPAY ==
[2024-05-07 10:07] VITALS: BP 160/80; PULSE 80; BMI 26.0
--- NOTE | 2024-05-07 10:07 | MHC.OFFVIS ---
Vital Signs 05/07/24 10:07 Height 5 ft 2 in Weight 142 lb 3.17 oz BMI 26.0 BP 160/80 H Blood Pressure Location Lt brachial Position Sitting Pulse 80 Pulse Source Monitor Intake Visit Reasons: chest pain/htn Intake Note: F/up chest pain/HTN Front End Engineer Required: No Accompanied by: Significant Other Allergies No Known Allergies [No Known Allergies*] Allergy (Verified 11/01/23 12:40) Medication List - Last Reconciled 05/07/24 by Marcial Ni MD cholecalciferol (vitamin D3) 50 mcg PO DAILY clobetasol 0.05% grams topical 3XW PRN duloxetine 60 mg PO DAILY enalapril maleate 10 mg PO DAILY estradiol 1 patch topical 2XW folic acid 1 mg PO DAILY metoprolol succinate ER 50 mg PO DAILY modafinil take 200 mg in am and 100 mg in pm 30 days mometasone 0.1% 1 appl topical DAILY PRN omeprazole 40 mg PO DAILY rosuvastatin 5 mg (1/2 x 10 mg) PO DAILY HPI Comments Details: Pleasant 79 year female with background history of hypertension, hyperlipidemia narcolepsy for which she has been taking modafinil for 15 years presenting now for follow-up. She usually sees Dr. Pena. She has been experiencing central chest discomfort and jaw discomfort when she is walking her dog. She is saying on a regular basis she is okay but when the dog runs and pulse she starts getting this uneasy feeling in her chest and the jaw. This has been ongoing on for 2-3 months but symptoms have been quite progressive and now she is getting almost daily symptoms. Even going up several stairs gives her chest discomfort. These last for few minutes and she rests the symptoms go away. Her blood pressure has been elevated and in the office she is 160/80 and at home also she has noticed her blood pressures to be elevated. He is a nonsmoker. Does not drink. No bleeding issues. She does not use aspirin regularly. [facility] Medical History Impaired fasting glucose Lichen sclerosus Hx of gastritis Narcolepsy Rotator cuff impingement syndrome of left shoulder Lumbar radiculopathy, right Arthritis of both hands Surgical History History of cataract surgery Hx of colonoscopy H/O microdiscectomy History of bowel resection Family History Brother S/P TAVR (transcatheter aortic valve replacement) Social History Housing: House Alcohol intake: unknown Patient Tobacco Use Status: Former Tobacco user e-Cigarette/Vaping Use: Never Used service: No Current occupational status: retired Current occupation: right Handed Cognitive needs: No Hearing needs: No Vision needs: Yes Review of Systems Const Denies chills, Denies fatigue, Denies fever(s), Denies frequent falls, Denies weakness, Denies weight gain and Denies weight loss ENT Denies dizziness Card Reports chest pain, Reports chest pain with activity, Denies leg edema, Denies lightheadedness, Denies palpitations, Denies dyspnea and Denies dyspnea on exertion Resp Denies cough, Denies dyspnea and Denies dyspnea on exertion GI Denies hematochezia Musc Denies abnormal gait, Denies muscle weakness, Denies numbness, Denies radiating pain into limb and Denies tingling Neuro Denies abnormal gait, Denies dizziness, Denies frequent falls, Denies numbness, Denies tingling and Denies weakness Endo Denies fatigue and Denies palpitations Physical Exam Vital Signs: Last Vital Signs Pulse 80 05/07/24 10:07 BP 160/80 H 05/07/24 10:07 BMI result Body Mass Index 26.0 GENERAL APPEARANCE: in no acute distress, pleasant. NECK: no carotid bruit, no jugular venous distention. SKIN: no suspicious lesions, warm and dry. HEART: no murmurs, regular rate and rhythm. LUNGS: clear to auscultation bilaterally. ABDOMEN: soft, nontender. EXTREMITIES: no edema. PERIPHERAL PULSES: equal. NEUROLOGIC: No gross deficits, AAO X 3 Office Procedures EKG Details: Normal sinus rhythm 80 beats per minute, normal axis, normal ECG, QTC 442 milliseconds. [id number], Complete Assessment & Plan Assessment & Plan (1) Unstable angina: Code(s): I20.0 - Unstable angina Category: Medical (2) Essential hypertension: Code(s): I10 - Essential (primary) hypertension Category: Medical (3) Hyperlipidemia: Code(s): E78.5 - Hyperlipidemia, unspecified Category: Medical Qualifiers: Hyperlipidemia type: pure hypercholesterolemia Qualified Code(s): E78.00 - Pure hypercholesterolemia, unspecified Plan Very pleasant 79 year female who is here for follow-up. She usually follows with Dr. Pena. She has been experiencing central chest discomfort and jaw discomfort over the last 2-3 months which has been quite progressive. Clinical story is classic for unstable angina. I have discussed with her that she needs diagnostic cardiac catheterization. We will arrange this as soon as possible. Blood pressure is elevated and she is not on any antianginals other than metoprolol. I am adding isosorbide mononitrate 30 mg daily. She was start baby aspirin. Thank you for allowing me to participate in the care of your patient. Please feel free to contact me if you have any questions. Orders: Orders Cardiac Cath LT Diagnostic Today I20.0 - Unstable angina Basic Metabolic Panel Today I20.0 - Unstable angina Complete Blood Count no Diff Today I20.0 - Unstable angina Prothrombin Time INR Today I20.0 - Unstable angina Coding Level of Care Code Est Pt Level 4 (96893) Diagnoses Unstable angina I20.0 Essential hypertension I10 Pure hypercholesterolemia E78.00 Hyperlipidemia type: pure hypercholesterolemia CPT Codes EKG - CPT: 80386-[id number], Complete ([id number])
== END 2024-05-07 11:04 | disposition home or self-care (01) ==
PROVIDERS: PCP Internal Medicine; Visit Provider Internal Medicine Cardiovascular Disease
DX: I20.0 Unstable angina (principal); I10 Essential (primary) hypertension; E78.00 Pure hypercholesterolemia, unspecified
CPT/HCPCS: 93010; 99214

== ENCOUNTER → 2024-05-07 10:01 | Outpatient (BNVA) | payer MEDICARE, SELFPAY | PROVIDERS: PCP Internal Medicine; Visit Provider Internal Medicine Cardiovascular Disease | DX: R07.9 Chest pain, unspecified (principal); I20.0 Unstable angina; I10 Essential (primary) hypertension; E78.00 Pure hypercholesterolemia, unspecified | CPT/HCPCS: 93005; 99212 ==

== ENCOUNTER → 2024-05-08 23:59 | Outpatient (BNV) | payer MEDICARE, SELFPAY | PROVIDERS: PCP Internal Medicine; Visit Provider Internal Medicine Cardiovascular Disease | DX: I20.0 Unstable angina (principal) | CPT/HCPCS: 93460; 99152 ==

== ENCOUNTER 2024-08-16 13:42 | Outpatient (AMB) | payer MEDICARE, SELFPAY ==
--- NOTE | 2024-08-16 13:45 | MHC.PC.OV ---
Vital Signs 08/16/24 13:56 Height 5 ft 2 in Weight 141 lb BMI 25.8 BP 144/82 H Blood Pressure Location Lt brachial Position Sitting Respiration 16 Pulse 75 Pulse Source Pulse Oximeter Temp 98.1 F Temp Source Oral Pulse Oximetry (%) 98 Oxygen Delivery Method Room Air Intake Visit Reasons: f/u hypertension-reschedule Intake Note: Pt is here today to f/u HTN Allergies No Known Allergies (No Known Allergies*) Allergy (Verified 08/16/24 14:11) Medication List - Last Reconciled 08/16/24 by Zo Beaulieu MD cholecalciferol (vitamin D3) 50 mcg PO DAILY clobetasol 0.05% grams topical 3XW PRN duloxetine 60 mg PO DAILY enalapril maleate 20 mg PO DAILY estradiol 1 patch topical 2XW folic acid 1 mg PO DAILY metoprolol succinate ER 50 mg PO DAILY modafinil take 200 mg in am and 100 mg in pm 30 days mometasone 0.1% 1 appl topical DAILY PRN omeprazole 40 mg PO DAILY Tobacco use date assessed: 08/16/24 Fall risk assessment: No Falls in past year Last assessed Fall Risk: 08/16/24 Dental Screening Dental Screen Date: 08/16/24 Did you have a dental visit in the last 12 months?: Yes Did you have a dental problem in the last 6 months where you did not have access to dental care?: No Was dental information given to patient?: Patient has dentist HPI f/u hypertension-reschedule HPI Details 79-year-old lady with hypertension, here today for follow-up. She had a cardiac evaluation and at [facility] recently due to intermittent episodes of chest pain and had a cardiac catheterization which essentially came back within normal limits. She has been feeling well, has not had any episodes of chest pain since her admission. Blood pressure now better controlled on enalapril 20 mg daily and metoprolol succinate ER 50 mg daily, but patient states that she has not been taking her amlodipine, did not know whether to continue or not on taking the medication. [facility] Medical History (Updated 08/16/24 @ 14:27 by Zo Beaulieu MD) Osteoporosis Impaired fasting glucose Lichen sclerosus Hx of gastritis Narcolepsy Rotator cuff impingement syndrome of left shoulder Lumbar radiculopathy, right Arthritis of both hands Surgical History History of cataract surgery Hx of colonoscopy H/O microdiscectomy History of bowel resection Family History Brother S/P TAVR (transcatheter aortic valve replacement) Social History Housing: House Alcohol intake: unknown Patient Tobacco Use Status: Former Tobacco user e-Cigarette/Vaping Use: Never Used service: No Current occupational status: retired Current occupation: right Handed Cognitive needs: No Hearing needs: No Vision needs: Yes Questionnaire PHQ-9 Over the last 2 weeks, how often have you been bothered by any of the following problems? 1. Little interest or pleasure in doing things: not at all 2. Feeling down, depressed, or hopeless: not at all 3. Trouble falling or staying asleep, or sleeping too much: not at all 4. Feeling tired or having little energy: not at all 5. Poor appetite or overeating: not at all 6. Feeling bad about yourself - or that you are a failure or have let yourself or your family down: not at all 7. Trouble concentrating on things, such as reading the newspaper or watching television: not at all 8. Moving or speaking so slowly that other people could have noticed. Or the opposite - being so fidgety or restless that you have been moving around a lot more than usual: not at all 9. Thoughts that you would be better off or of hurting yourself in some way: not at all Total score: 0 Depression Screening Interpretation: Negative Depression Screening Done: Yes 53655 - PHQ-9 Billing: Yes Source: Developed by Drs. Brian Colon, Althea Harry, Chalo Murray and colleagues, with an educational aisha from [employer]. Thrive Questionnaire Date Thrive assessed: 11/02/22 I am a: Patient What is your living situation today?: I have a steady place to live Within the past 12 months, did the food you bought not last and you didn't have the money to get more?: Never true Within the past 12 months, did you worry whether your food would run out before you got money to buy more?: Never true Do you have trouble paying for medicines?: No Do you have trouble getting transportation to medical appointments?: No Do you have trouble paying your heating and electricity bill?: No Do you have trouble taking care of your child, family member or friend?: No Do you have trouble with day-to-day activities such as bathing, preparing meals, shopping, managing finances, etc.?: No Are you currently unemployed and looking for a job?: No Are you interested in more education?: No Please select the resources that you would like help with: None Currently or been in a relationship where the following occur: No concerns reported THRIVE Score: 0 AUDIT C Alcohol Use Questionnaire (AUDIT-C) 2. How many drinks containing alcohol do you have on a typical day when you are drinking?: 1 or 2 Total Score: 0 INDIRA-7 AMB Questionnaire INDIRA-7 Date INDIRA - 7 assessed: 11/02/22 Source: Developed by Drs. Brian Colon, Althea Harry, Chalo Murray and colleagues, with an educational aisha from [employer]. Review of Systems Const Denies fatigue, Denies fever(s), Denies frequent falls and Denies weakness Eyes Denies change in vision ENT Denies dizziness Card Denies leg edema, Denies lightheadedness, Denies palpitations, Denies dyspnea and Denies dyspnea on exertion Resp Denies cough, Denies dyspnea and Denies dyspnea on exertion GI Reports no additional complaints Musc Denies abnormal gait, Denies muscle weakness, Denies numbness, Denies radiating pain into limb, Reports stiffness and Denies tingling Neuro Denies abnormal gait, Denies dizziness, Denies frequent falls, Denies numbness, Denies tingling and Denies weakness Endo Denies fatigue and Denies palpitations Azam/Lymph Reports no additional complaints Physical exam (Primary Care) Vital Signs: Last Vital Signs Temp 98.1 F 08/16/24 13:56 Pulse 75 08/16/24 13:56 Resp 16 08/16/24 13:56 BP 144/82 H 08/16/24 13:56 Pulse Ox 98 08/16/24 13:56 Oxygen Delivery Method Room Air 08/16/24 13:56 BMI result Body Mass Index 25.8 Tobacco/Smoking Status: Tobacco use Status Tobacco use date assessed 08/16/24 08/16/24 13:48 Patient Tobacco Use Status Former Tobacco user 08/16/24 13:48 e-Cigarette/Vaping Use Never Used 08/16/24 13:48 PHQ-9: PHQ-9 Score PHQ-9: Total score 0 08/16/24 14:29 Depression Screening Interpretation: Negative Thrive Assessment: Date of Thrive Assessment Date Thrive assessed 11/02/22 08/16/24 13:48 Currently or been in a relationship where the following occur: No concerns reported Const General: comfortable and no acute distress Orientation/consciousness: patient oriented x3 HENMT Ears: external ears normal General nose exam: Normal external nose present Face and sinus: Yes face symmetric Mouth: Normal oral and palatal mucosa present, oropharynx normal and moist mucous membranes Eyes General: appearance normal, both eyes and all related structures Neck Neck: Yes full ROM, Yes no lymphadenopathy and Yes supple Thyroid: Thyroid normal Resp Effort & Inspection: normal respiratory effort and able to speak in complete sentences Auscultation: clear to auscultation bilaterally Cardio Rate: regular rate Rhythm: regular rhythm Heart sounds: S1 normal heart sound present and S2 normal heart sound present GI Inspection: Yes normal to inspection Palpation (GI): Soft to palpation, nontender, no guarding and no masses Auscultation: normal bowel sounds General: Yes no CVA tenderness Back/Spine/Pelvis Back: no CVA tenderness and No back tenderness Neuro General: patient oriented x3, gait normal, moves all extremities, Normal light touch and pain sensation, no focal motor deficits and CN's II-XI intact bilaterally Extrem General: Yes full ROM, Yes no joint enlargement, Yes no pedal edema and Yes normal gait Psych Appearance: grossly normal and well kempt Affect: normal affect Coding Level of Care Code Est Pt Level 4 (78484) Diagnoses Essential hypertension I10 Pure hypercholesterolemia E78.00 Hyperlipidemia type: pure hypercholesterolemia Osteoporosis M81.0 Additional Codes PHQ-9 - 96592 - PHQ-9 Billing: Yes ([id number]) Assessment & Plan Assessment & Plan (1) Essential hypertension: Code(s): I10 - Essential (primary) hypertension Category: Medical Plan: Continue with metoprolol and enalapril at the same dose, and restart back on amlodipine but to 2.5 mg daily at night, continue monitor blood pressure at home (2) Hyperlipidemia: Code(s): E78.5 - Hyperlipidemia, unspecified Category: Medical Qualifiers: Hyperlipidemia type: pure hypercholesterolemia Qualified Code(s): E78.00 - Pure hypercholesterolemia, unspecified Plan: Patient no longer taking rosuvastatin, will repeat another fasting lipid panel in October. Reinforced importance of following a low-cholesterol diet and getting regular exercise (3) Osteoporosis: Comment: Osteoporosis right femoral neck, seen on bone density ordered by Dr. Alberto Code(s): M81.0 - Age-related osteoporosis without current pathological fracture Category: Medical Plan: Osteoporosis in right femoral neck seen on recent bone density scan ordered by Dr. Alberto . Continue with doing regular weight-bearing exercise, take adequate calcium from dietary sources and continue with vitamin-D 350 mcg once a day. She has an appointment this follow-up with Dr. Vargas later this month to discuss results and treatment option
--- OUTSIDE RECORDS SUMMARY | 2024-08-16 13:47 | XMS_ITS | Patient Health Record ---
Author Organization [facility] Address [address] [place] [address] Care Team Providers Care Director Of Strategic Sales Name Role Phone Christofer CHUNG, Zo Primary Care Provider Ruben Esteves Jr, Ken Unavailable [phone] 1 Allergies No Known Allergies Results Component Value Reference Range Notes Pathology Reviewed date:11/24/2023 11:17:33 AM Interpretation: Performing Lab:[facility], [address] [place] [id number] Notes/Report: Reason For Referral No Information Medications Medication SIG (Take, Route, Frequency, Duration) Notes Start Date End Date Status MiraLax (colon prep) 17 GM/SCOOP mixed with Gatorade or Crystal Light Orally begin at 5:00 p.m. the day before the procedure for 1 day 10/24/2023 Active Vasotec Active Provigil Active Cymbalta 60 MG Orally Activ e Metoprolol Succinate ER Active Folic Acid 1 MG 1 tablet Orally Once a day for 30 day(s) Active Pepcid 40 MG 1 tablet Orally Twic e a day for 30 day(s) 05/18/2018 Active Omeprazole 40 mg TAKE 1 CAPSULE BY [facility] 30 MINUTES BEFORE MORNING MEAL ONCE DAILY for 30 Active Immunizations Vaccine Route Administration Date Status Comme nts Influenza Unknown 11/14/2017 Administered Influenza Unknown 10/24/2023 Refused Problems Problem Type SNOMED Code ICD Code Onset Dates Problem Status W/U Status Risk Notes Problem 186279727 Colon cancer screening (Z12.11) Active confirmed Problem Gastro-esophage al reflux disease without esophagitis (680596566) Gastro-esophageal reflux disease without esophagitis (K21.9) Active confirmed Problem 010807683 Gastroesophageal reflux disease without esophagitis (K21.9) Active confirmed Problem 66891520 Ischemic colitis (K55.9) Active confirmed Vital Signs Temperature 97.1 degrees Fahrenheit 10/24/2023 Blood pressure diastolic 00 mm Hg 10/24/2023 Height 62 in 10/24/2023 Blood pressure systolic 000 mm Hg 10/24/2023 Weight 135 lb 6 oz lbs 10/24/2023 BMI 24.76 kg/m2 10/24/2023 Encounters Encounter Location Date Provider Diagnosis [facility] Outpatient [address] [place], [place] [id number] 11/15/2023 Ken Esteves Jr Encounter for screening colonoscopy Z12.11 and Gastro-esophageal reflux disease without esophagitis K21.9 [facility] [address] [place] [phone] 10/24/2023 Ken Esteves Jr Gastroesophageal reflux disease without esophagitis K21.9 and Colon cancer screening Z12.11 [facility] [address] [place] [address] Drive [address] [place] [phone] 11/24/2023 Ken Esteves Jr Assessments Encounter Date Diagnosis (ICD Code) Assessment Notes Treatment Notes Treatment Clinical Notes Section Notes 11/15/2023 Encounter for screening colonoscopy (ICD-10 - Z12.11) 11/15/2023 Gastro-esophageal reflux disease without esophagitis (ICD-10 - K21.9) 10/24/2023 Colon cancer screening (ICD-10 - Z12.11) We discussed gastroesophageal reflux disease today. We discussed diet, lifestyle modifications, and weight management regarding the treatment of reflux. She is advised to discontinue famotidine and begin using omeprazole 40 mg daily. She is due for colorectal cancer screening. She will have endoscopy at the same time because of her persistent reflux symptoms. She is aware risks and benefits and agrees to proceed. 10/24/2023 Gastroesophageal reflux disease without esophagitis (ICD-10 - K21.9) Belching material was printed We discussed gastroesophageal reflux disease today. We discussed diet, lifestyle modifications, and weight management regarding the treatment of reflux. She is advised to discontinue famotidine and begin using omeprazole 40 mg daily. She is due for colorectal cancer screening. She will have endoscopy at the same time because of her persistent reflux symptoms. She is aware risks and benefits and agrees to proceed. Plan Of Treatment Future Test Test Name Order Date COLONOSCOPY 12/20/2012 UPPER GI ENDOSCOPY 05/18/2018 COLONOSCOPY 05/18/2018 UPPER GI ENDOSCOPY 10/24/2023 COLONOSCOPY 10/24/2023 Insurance Providers Payer Name Payer Address Payer Phone Subscriber Number Group Number Insured Name Patient Relationship to Insured Coverage Start Date Coverage End Date [facility] [address] [place] [phone] [id number] [employer] Self - patient is the insured Medical (General) History Medical History History ICD Code gastroesophageal reflux dise ase (GERD), EGD 09/01, no Chan's esophagus or H. pylori. rheumatoid arthritis/osteoarthritis headaches hypertension anxiety lichen sclerosis Colonoscopy 09/01, tubular adenoma, five- year followup Surgical History Surgery Date(Month/Year) small bowel resection for stricture with ulceration, ? NSAID related cholecystectomy partial hysterectomy cystoscopy and stone extraction
--- OUTSIDE RECORDS SUMMARY | 2024-08-16 13:47 | XMS_ITS | Encounter Summary ---
Author Organization [facility], Address [address] [place] [address] Phone Care Team Providers Care Tobacco Farmworker Name Role Phone Teo Beaulieu MD Primary Care Provider [phone] Encounter Details Date Type Department Care Team (Late st Contact Info) Description 04/21/2022 Documentation Only [facility], [address] [place] [address] Irvin Terrazas MD [address] [place] [phone] Social History Tobacco Use Types Packs/Day Years [...] filedocumented in this encounter Care Teams Tobacco Farmworker Relationship Specialty Start Date End Date Teo Beaulieu MD [address] [id number] PCP - General Internal Medicine 04/11/23 documented as of this encounter
[2024-08-16 13:56] VITALS: BP 144/82; PULSE 75; RESP 16; TEMP 36.7; O2SAT 98; BMI 25.8
== END 2024-08-16 14:34 | disposition home or self-care (01) ==
LOC: HO.HMCC 13:43
PROVIDERS: PCP Internal Medicine; Visit Provider Internal Medicine
DX: I10 Essential (primary) hypertension (principal); E78.00 Pure hypercholesterolemia, unspecified; M81.0 Age-related osteoporosis without current pathological fracture

== ENCOUNTER → 2024-08-16 13:42 | Outpatient (BNVA) | payer MEDICARE, SELFPAY | PROVIDERS: PCP Internal Medicine; Visit Provider Internal Medicine | DX: I10 Essential (primary) hypertension (principal); E78.00 Pure hypercholesterolemia, unspecified; M81.0 Age-related osteoporosis without current pathological fracture | CPT/HCPCS: 96127; 99212 ==

== ENCOUNTER 2024-11-12 10:57 | Outpatient (REF) | payer MEDICARE, SELFPAY ==
--- OUTSIDE RECORDS SUMMARY | 2021-09-15 14:29 | XMS_ITS | Encounter Summary ---
Author Organization [facility] Address [address] [place] [address] [place] [address] Phone Care Team Providers Care Iron Cutter Name Role Phone Guillermina Miranda MD Unavailable [phone] Zo Beaulieu MD Primary Care Provider Encounter Details Date Type Department Care Team (Late st Contact Info) Description 09/15/2021 2:29 PM EDT Hospital Encounter [facility] [address] [place] [address] Megan Bolden CNP [address] [place] [address] [email or web address] Social History Tobacco Use Types Packs/Day Years [...] IMPRESSION: No fracture or dislocation. Megan Bolden HOME HEALTH SPECIALIST IMG XR UPPER EXTREMITY Nisha l Result documented in this encounter Visit Diagnoses Not on filedocumented in this encounter Care Teams Iron Cutter Relationship Specialty Start Date End Date Zo Beaulieu MD [facility] [place] [place] [address] PCP - General Internal Medicine 05/21/20 Guillermina Miranda MD [address] [place] [address], [address] [place] [address] [email or web address] Historical LMR Provider 12/04/16 documented as of this encounter Additional Source Comments The information contained in this document represents components of the legal health record. It is not the complete legal health record.[facility]
--- OUTSIDE RECORDS SUMMARY | 2021-09-15 14:29 | XMS_ITS | Encounter Summary ---
Author Organization [facility] Address [address] [place] [address] [place] [address] Phone Care Team Providers Care Tobacco Scrap Sifter Name Role Phone Guillermina Miranda MD Unavailable [phone] Zo Beaulieu MD Primary Care Provider Encounter Details Date Type Department Care Team (Late st Contact Info) Description 09/15/2021 2:29 PM EDT Hospital Encounter [facility] [address] [place] [address] Megan Bolden CNP [address] [place] [address] [email or web address] Social History Tobacco Use Types Packs/Day Years [...] in mildneuroforaminal narrowing as described. Megan Bolden HEAD CHEF IMG XR SPINE Final Resul t documented in this encounter Visit Diagnoses Not on filedocumented in this encounter Care Teams Tobacco Scrap Sifter Relationship Specialty Start Date End Date Zo Beaulieu MD [facility] [place] [address] PCP - General Internal Medicine 05/21/20 Guillermina Miranda MD [address] [place] [address], [facility] [address] [place] [address] [email or web address] Historical LMR Provider 12/04/16 documented as of this encounter Additional Source Comments The information contained in this document represents components of the legal health record. It is not the complete legal health record.[facility]
--- OUTSIDE RECORDS SUMMARY | 2023-11-15 07:15 | XMS_ITS ---
Author Organization [facility] Address [address] [place] [id number] Care Team Providers Care Video Game Repair Technician Name Role Phone Christofer CHUNG, Zo Primary Care Provider Ruben Esteves Jr, Ken Bond [phone] REASON FOR VISIT gerd,screening Problems Problem Type SNOMED Code ICD Code Onset Dates Problem Status W/U Status Risk Notes Problem Gastro-esophagea l reflux disease without esophagitis ([id number]) Gastro-esophage al reflux disease without esophagitis (K21.9) Active confirmed Encounters Encounter Location Date Provider Diagnosis [facility] [address] [place] [id number] 11/15/2023 Ken Esteves Jr Encounter for screening colonoscopy Z12.11 and Gastro-esophageal reflux disease without esophagitis K21.9 Assessments Encounter Date Diagnosis (ICD Code) Assessment Notes Treatment Notes Treatment Clinical Notes Section Notes 11/15/2023 Encounter for screening colonoscopy (ICD-10 - Z12.11) 11/15/2023 Gastro-esophagea l reflux disease without esophagitis (ICD-10 - K21.9) Plan Of Treatment No Information Progress Notes * DEBO HUOB:1945 (79 yo F)Acc No.[id number]:11/15/2023 EGD and COL/MAC Patient: NGA WOLF Provider: Krishna Esteves MD :1945 A ge:78 Y S ex:Female Date:11/15/2023 Address:[address] [place], [place] [id number] Pcp:Zo Beaulieu MD Subjective: * Chief Complaints: * 1 . Gerd,screening. * Medical History: Objective: * Vitals: Assessment: * Assessment: 1. E ncounter for screening colonoscopy - Z12.11 (Primary) 2 . G pao-esophageal reflux disease without esophagitis - K21.9 Plan: * Treatment: * Procedure Codes: 4 5380 COLONOSCOPY AND BIOPSY, 10213 UPPER GI ENDOSCOPY, BIOPSY * * The named appointment provid er may or may not be the originator of this progress note, and it is not deemed complete until electronically signed by the appointment provider. Sign off status: Pending * Provider: Krishna Esteves MD Date: Generated for Edmar cota/Rocky/Lauraitting on: 0 11/12/2024 12:28 PM EDT
--- OUTSIDE RECORDS SUMMARY | 2024-11-12 12:28 | XMS_ITS | Clinical Summary ---
Author Organization [facility] Address [address] [address] Phone Care Team Providers Care Casino Cage Cashier Name Role Phone Guillermina Miranda MD Unavailable [phone] Zo Beaulieu MD Primary Care Provider Allergies No known active allergies Medications multivitamins capsule as directed Orally Active DULOXETINE HCL (CYMBALTA ORAL) 60 mg daily. Once a day Active enalapril (VASOTEC) 10 MG tablet Take 10 mg by mouth daily. Active metoprolol succinate (TOPROL-XL) 25 MG 24 hr tablet Take 50 mg by mouth daily. Active cholecalcifero l (VITAMIN D3) 2,000 unit capsule Take 1 capsule by mouth. Active modafiniL (PROVIGIL) 200 MG tablet Take 200 mg by mouth every morning. 08/22/19 22 Active folic acid (FOLVITE) 1 MG tablet Take 1 tablet (1 mg total) by mouth 1 (one) time each day 08/22/19 22 Active omeprazole (PRILOSEC) 40 MG capsule Take 40 mg by mouth daily. Active clobetasol (TEMOVATE) 0.05 % ointmentIndica tions:Lichen sclerosus Apply topically 3 (three) times a week. Use a thin film 30 g 10/20/19 25 Active estradioL (VIVELLE-DOT) 0.0375 mg/24 hrIndications: Menopausal symptoms Place 1 patch onto the skin 2 (two) times a week. 24 patch 3 10/19/19 25 Active b complex vitamins tablet as directed Orally 025 Discontinued estradioL (VIVELLE-DOT) 0.0375 mg/[address] 1 patch onto the skin 2 (two) times a week. 24 patch 03/24/19 025 Discontinued(Re order) clobetasol (TEMOVATE) 0.05 % ointmentIndica tions:Lichen sclerosus USE A pea sized AMOUNT AND apply topically three TIMES A WEEK 30 g 05/02/19 025 Discontinued(Re order) famotidine (PEPCID) 40 MG tablet Take 40 mg by mouth daily. 025 Discontinued cyclobenzaprin e (FLEXERIL) 10 MG tablet Take 1 tablet (10 mg total) by mouth 2 (two) times a day as needed. 20 tablet 09/16/19 025 Discontinued Active Problems Problem Noted Date Diagnosed Date Essential hypertension 01/04/2020 Hyperlipidemia 01/04/2020 Renal stone 01/04/2020 Stage 3a chronic kidney disease 01/04/2020 Overview (09/15/2021): Update for Diagnosis Load Vasomotor symptoms due to menopause 02/03/2019 Assessment & Plan (10/18/2024 8:09 PM EDT): Counseled on lack of safety date re: assisted use. Appropriate candidate, low ASCVD. Rx refilled. Assessment & Plan (05/23/2020 5:15 PM EDT): Defer management of this to Dr. Alberto Assessment & Plan (02/03/2019 2:23 PM EST): We discussed a general approach to vasomotor symptoms: HRT is appropriate during the perimenopausal transition for symptom control. As Nga is greater than 10 years past menopause [...] will schedule a consult. Rheumatoid arthritis 10/05/2017 Overview (04/05/2018): 2019R1.3 IMO Load Chronic fatigue syndrome 10/05/2017 Fibromyalgia 10/05/2017 Lichen sclerosus 10/05/2017 Assessment & Plan (10/18/2024 8:10 PM EDT): Reviewed regular use of Clobetasol for symptom management. Focus on perineum when applying Clobetasol 2/2 persistent localized irritation with discontinuation. Assessment & Plan (05/23/2020 5:12 PM EDT): Angelina, recommend resumption of Clobetasol 1-2 times weekly. Assessment & Plan (02/03/2019 2:20 PM EST): Stable, rx refilled. Reviewed medication instructions. Assessment & Plan (10/05/2017 1:56 PM EDT): I reviewed the importance of regular maintenance topical steroid use to prevent symptoms, further scarring, and squamous cell cancer of the vulva. I also explained the importance of regular follow up to ensure she has no evidence of precancerous or cancerous changes and that she is not having side effects from her medication. I reviewed areas of application and amount of medication to use. Recommend using Clobetasol 1-2 times weekly for maintenance. Vulvar atrophy 10/05/2017 Assessment & Plan (02/03/2019 2:20 PM EST): Angelina, rx refilled, reviewed medication instructions. Assessment & Plan (10/05/2017 1:56 PM EDT): Estrace refilled. Encounters Date Type Department Care Team Description 10/18/2024 2:10 PM EDT Office Visit [facility] [address] [place] [address] [place] [address] Guillermina Miranda MD Encounter for gynecological examination with abnormal finding (Primary Dx); Lichen sclerosus; Menopausal symptoms; Vasomotor symptoms due to menopause 09/12/2024 Telephone [facility] [address] [place] [address] [place] [address] Guillermina Miranda MD Appointment from Last 3 Months Immunizations Immunization Administration Dates Next Due COVID-19 (Pre-12/06) Pfizer Vaccine, mRNA, PF 04/21/2020 INFLUENZA, SPLIT VIRUS, TRIV ALENT W/ PRESERVATIVE IM 11/30/2006 Influenza High-Dose Trivalen t Preservative Free IM 11/05/2017,11/05/2016,11/11/2015,12/06 Influenza Quadrivalent Prese rvative Free IM 12/31/2019,11/23/2018 Pneumococcal polysaccharide PPSV23 02/02/2016 Zoster recombinant 12/13/2017 Family History Medical History Relation Comments Thyroid disease Daughter 1 No Known Problems Daughter 2 Rheumatic heart disease Father Diabetes mellitus Mother CV disease Paternal Grandfather Esophageal cancer Paternal Uncle No Known Problems Son Relation Status Comments Daughter 1 Daughter 2 Father Mother Paternal Grandfather Paternal Uncle Son Social History Tobacco Use Types Packs/Day Years [...] Sign Reading Time Taken Comments Blood Pressure 118/74 10/18/2024 2:07 PM EDT Pulse 90 09/15/2021 1:58 PM EDT Temperature 36.4 C (97.6 F) 09/15/2021 1:58 PM EDT Respiratory Rate 16 09/15/2021 1:58 PM EDT Oxygen Saturation 99% 09/15/2021 1:58 PM EDT Inhaled Oxygen Concentration - - Weight 63.9 kg (140 lb 12.8 oz) 10/18/2024 2:07 PM EDT Height 154.9 cm (5' 1 ) 09/15/2021 1:58 PM EDT Body Mass Index 26.6 09/15/2021 1:58 PM EDT Plan of Treatment Health Maintenance Due Date Last Done Comments Adult Td,Tdap Booster 1945 CREATININE LEVEL 1945 LIPID PANEL 1947 POTASSIUM LEVEL 1947 DEPRESSION SCREENING 1959 HEPATITIS C SCREENING 1965 ZOSTER VACCINES (2 of 2) 02/07/2018 12/13/2017 RSV VACCINE (1 - 1-dose 75+ series) 2022 INFLUENZA VACCINE (#1) 2024 , 02/19/2021, 12/31/2019, Additional history exists COVID-19 VACCINE ( season) 2024 03/16/2021, 04/21/2020 BLOOD PRESSURE 04/17/2025 10/18/2024 PNEUMOCOCCAL VACCINES (50+ years) Completed 01/04/2022, 02/02/2016 OSTEOPOROSIS SCREENING INITIAL (ONE-TIME) Completed 02/09/2022 SMOKING STATUS SCREENING (Once After 26 Yrs) Completed 10/18/2024 HEPATITIS A VACCINES Aged Out No long er eligible based on patient's age to complete this topic HIB VACCINES Aged Out No longer eligi ble based on patient's age to complete this topic MENINGOCOCCAL VACCINES (ACWY) Aged Out No longer eligible based on patient's age to complete this topic MENINGOCOCCAL VACCINES (B) Aged Out N o longer eligible based on patient's age to complete this topic Medical Devices Not on file Procedures Procedure Name Priority Date/Time Associated Diagnosis Comments BD DXA AXIAL (SPINE) WITH HIP Routine 02/09/2022 9:10 AM EST Symptomatic menopausal or female climacteric states from Last 3 Months or Most Recently Relevant to Health Maintenance Results * BD DXA AXIAL (SPINE) WITH HIP (02/09/2022 9:10 AM EST) Anatomical Region Laterality Modality Bone Density Bone Density 02/09/2022 12:1 1 PM EST Impressions 02/09/2022 12:12 PM EST Osteoporosis Reference Information: The T-score is the number of standard deviations above or below the standard which is normal for young adults at their peak bone mineral density. The World Health Organization (WHO) interprets the T-scores as follows: Above -1 Normal bone density Between -1 and -2.5 Osteopenia Equal to / or below -2.5 Osteoporosis As a practical clinical guideline, osteopenia may be graded as follows: Mild -1 through -1.5 Moderate -1.6 through -2.0 Severe -2.1 through -2.4 References: 1. NIH Osteoporosis and Related Bone Diseases http://www.osteo.org 2. International Society for Clinical Densitometry http://www.iscd.org 3. National Osteoporosis Foundation http://www.nof.org Narrative 02/09/2022 12:12 PM EST STUDY: DUAL ENERGY X-RAY ABSORPTIOMETRY / DXA REASON FOR EXAM: Female, 77 years old. TECHNIQUE: Bone Mineral Density (BMD) measurements of the lumbar spine and bilateral hips were obtained. COMPARISON: None. FINDINGS: L1-L4 T score: -0.4. This corresponds to Normal bone density. Right femoral neck T score: -2.8. This corresponds to osteoporosis Right total hip T score: -2.7. This corresponds to osteoporosis Left femoral neck T score: -2.1. This corresponds to osteopenia Left total hip T score: -2.4. This corresponds to osteopenia Procedure Note Breanne Paulino MD - 02/09/2022 STUDY: DUAL ENERGY X-RAY ABSORPTIOMETRY / DXA REASON FOR EXAM: Female, 77 years old. TECHNIQUE: Bone Mineral Density (BMD) measurements of the lumbar spineand bilateral hips were obtained. COMPARISON: None. FINDINGS: L1-L4 T score: -0.4. This corresponds to Normal bone density. Right femoral neck T score: -2.8. This corresponds to osteoporosis Right total hip T score: -2.7. This corresponds to osteoporosis Left femoral neck T score: -2.1. This corresponds to osteopenia Left total hip T score: -2.4. This corresponds to osteopenia IMPRESSION: Osteoporosis Reference Information: The T-score is the number of standard deviations above or below thestandard which is normal for young adults at their peak bone mineraldensity. The World Health Organization (WHO) interprets the T-scores asfollows: Above -1 Normal bone density Between -1 and -2.5 Osteopenia Equal to / or below -2.5 Osteoporosis As a practical clinical guideline, osteopenia may be graded as follows: Mild -1 through -1.5 Moderate -1.6 through -2.0 Severe -2.1 through -2.4 References: 1. NIH Osteoporosis and Related Bone Diseases http://www.osteo.org 2. International Society for Clinical Densitometry http://www.iscd.org 3. National Osteoporosis Foundation http://www.nof.org Brian WEINER BD BONE DENSITY DEXA Final Result from Last 3 Months or Most Recently Relevant to Health Maintenance Insurance [employer]IC[employer] HMO [place] [address] [place] [address] [address] [place] [place] [address] [address] [place] [place] [address] MEDICARE HMO REPLACEMENT MEDICARE HMO REPLACEMENT MEDICARE HMO REPLACEMENT MEDICARE HMO REPLACEMENT [facility] [employer] [facility] [employer] HMO REPLACEMENT [employer] HMO REPLACEMENT Care Teams Casino Cage Cashier Relationship Specialty Start Date End Date Zo Beaulieu MD [address] [place] [address] PCP - General Internal Medicine 05/21/20 Guillermina Miranda MD [address] [place] [email or web address] Historical LMR Provider 12/04/16 Additional Source Comments The information contained in this document represents components of the legal health record. It is not the complete legal health record.[facility]
--- OUTSIDE RECORDS SUMMARY | 2024-11-12 12:28 | XMS_ITS | Patient Health Record ---
Author Organization [facility] Address [address] [place] [address] Care Team Providers Care Home Appliances Mechanic Name Role Phone Christofer CHUNG, Zo Primary Care Provider Ruben Esteves Jr, Ken Unavailable [phone] Allergies No Known Allergies Results Component Value Reference Range Notes Pathology Reviewed date:11/24/2023 11:17:33 AM Interpretation: Performing Lab:[facility], [address] [place] [id number] Notes/Report: Reason For Referral No Information Medications [...] Omeprazole 40 mg TAKE 1 CAPSULE BY [facility] 30 MINUTES BEFORE MORNING MEAL ONCE DAILY for 30 Active Immunizations Vaccine Route Administration Date Status Comme nts Influenza Unknown 11/14/2017 Administered Influenza Unknown 10/24/2023 Refused Problems Problem Type SNOMED Code ICD Code Onset Dates Problem Status W/U Status Risk Notes Problem 869236436 Colon cancer screening (Z12.11) Active confirmed Problem Gastro-esophage al reflux disease without esophagitis (793019575) Gastro-esophageal reflux disease without esophagitis (K21.9) Active confirmed Problem 325338632 Gastroesophageal reflux disease without esophagitis (K21.9) Active confirmed Problem 36637047 Ischemic colitis (K55.9) Active confirmed Encounters Encounter Location Date Provider Diagnosis [facility] [address] [place], [place] [id number] 11/15/2023 Ken Esteves Jr Encounter for screening colonoscopy Z12.11 and Gastro-esophageal reflux disease without esophagitis K21.9 [facility] [address] [place] [address] 11/24/2023 Ken Esteves Jr Assessments Encounter Date Diagnosis (ICD Code) Assessment Notes Treatment Notes Treatment Clinical Notes Section Notes 11/15/2023 Encounter for screening colonoscopy (ICD-10 - Z12.11) 11/15/2023 Gastro-esophagea l reflux disease without esophagitis (ICD-10 - K21.9) Plan Of Treatment Future Test Test Name Order Date COLONOSCOPY 12/20/2012 UPPER GI ENDOSCOPY 05/18/2018 COLONOSCOPY 05/18/2018 UPPER GI ENDOSCOPY 10/24/2023 COLONOSCOPY 10/24/2023 Insurance Providers Payer Name Payer Address Payer Phone Subscriber Number Group Number Insured Name Patient Relationship to Insured Coverage Start Date Coverage End Date [facility] [address] [place] [phone] [id number] Self - patient is the [...]
--- OUTSIDE RECORDS SUMMARY | 2024-11-12 12:28 | XMS_ITS | Encounter Summary ---
Author Organization [facility], Address [address] [place] [address] Phone Care Team Providers Care Cardiology Rn Name Role Phone Teo Beaulieu MD Primary Care Provider [phone] Reason for Visit * Reason Comments Med Refill Encounter Details Date Type Department Care Team (Late st Contact Info) Description 02/28/2021 Refill [facility] [address] [place] [phone] Jeffy Eiwng MD Social History Tobacco Use Types Packs/Day Years [...] on filedocumented in this encounter Care Teams Cardiology Rn Relationship Specialty Start Date End Date Teo Beaulieu MD [address] [facility] [place] [place] [address] PCP - General Internal Medicine 04/11/23 documented as of this encounter
--- OUTSIDE RECORDS SUMMARY | 2024-11-12 12:28 | XMS_ITS | Encounter Summary ---
Author Organization [facility] Address [address] [place] [address] [place] [address] Phone Care Team Providers Care Segmental Paving Supervisor Name Role Phone Guillermina Miranda MD Unavailable [phone] Zo Beaulieu MD Primary Care Provider Encounter Details Date Type Department Care Team (Latest Contact Info) Description 09/15/2021 Transcribe Orders Virtual Department [address] [place] [address] Brian Alberto MD [address] [place] [address] Symptomatic menopausal or female climacteric states (Primary Dx) Social History Tobacco Use Types Packs/Day Years Used Date Smoking Tobacco: Never Smokeless Tobacco: Never Alcohol Use Standard Drinks/Week Comments Never 0 (1 standard drink = 0.6 oz pur e alcohol) Comments No Sex and Gender Information Value Date Recorded Sex Assigned at Not on file Legal Sex Female 4:20 PM EDT Gender Identity Not on file Sexual Orientation Not on file documented as of this encounter Plan of Treatment Not on file documented as of this encounter Results * BD DXA AXIAL (SPINE) WITH [...] Densitometry http://www.iscd.org 3. National Osteoporosis Foundation http://www.nof.org us Brian Alberto MD IMG BD BONE DENSITY DEXA Final Result documented in this encounter Visit Diagnoses Diagnosis Symptomatic menopausal or female climacteric states- Primary Symptomatic menopausal or female climacteric states documented in this encounter Care Teams Segmental Paving Supervisor Relationship Specialty Start Date End Date Zo Beaulieu MD [address] [facility] [place] [address] PCP - General Internal Medicine 05/21/20 Guillermina Miranda MD [address] [place] [address], [address] [place] [address] [email or web address] Historical LMR Provider 12/04/16 documented as of this encounter Additional Source Comments The information contained in this document represents components of the legal health record. It is not the complete legal health record.[facility]
--- OUTSIDE RECORDS SUMMARY | 2024-11-12 12:28 | XMS_ITS | Encounter Summary ---
Author Organization [facility], Address [address] [place] [address] Phone Care Team Providers Care Sand Buffer Name Role Phone Teo Beaulieu MD Primary Care Provider [phone] Encounter Details Date Type Department Care Team (Late st Contact Info) Description 04/21/2022 Documentation Only [facility], [address] [place] [address] Irvin Terrazas MD [address] [facility] [place] [phone] Social History Tobacco Use Types Packs/Day Years [...] on filedocumented in this encounter Care Teams Sand Buffer Relationship Specialty Start Date End Date Teo Beaulieu MD [address] [place] [address] PCP - General Internal Medicine 04/11/23 documented as of this encounter
--- OUTSIDE RECORDS SUMMARY | 2024-11-12 12:28 | XMS_ITS | Clinical Summary ---
Author Organization [facility], Address [address] [place] [address] Phone Care Team Providers Care Installation Manager Name Role Phone Teo Beaulieu MD Primary Care Provider [phone] Allergies No known active allergies Medications oxyCODONE-aceta [...] Apply topically 9 Active Cholecalciferol 50 MCG (1999 UT) capsule Take 1 capsule by mouth 1 (one) time each day Active Calcium Carbonate Antacid (Tums Chewy Delights) 1177 MG chewable tablet Acti ve rosuvastatin (Crestor) 5 MG tablet Take 1 tablet (5 mg total) by mouth 1 (one) time each day 30 tablet 11 2 Active Active Problems Problem Noted Date Diagnosed Date Renal stone 01/04/2020 Hyperlipidemia 01/04/2020 Essential hypertension 01/04/2020 Stage 3a chronic kidney disease 01/04/2020 Overview (02/18/2020): Update for Diagnosis Load Anemia 01/04/2020 Fibromyalgia 10/05/2017 Resolved Problems Problem Noted Date Diagnosed Date Resolved Date Menopausal syndrome 02/03/2019 01/04/20 Overview (01/04/2020): Last Assessment & Plan: We [...] Stable, rx refilled, reviewed medication instructions. Immunizations Immunization Administration Dates Next Due Influenza Split High [...] Due Date Last Done Comments Pneumococcal Vaccine: 50+ Years (2 of 2 - PCV) 02/01/2017 02/02/2016 Influenza Vaccine (#1) 2024 0, 11/23/2018, 11/05/2017, Additional history exists Pneumococcal Vaccine: Peds (0 to 5 Years) and At-Risk Patients (6 to 49 Years) Discontinued 02/02/2016 Hepatitis B Vaccine Aged Out No longe r eligible based on patient's age to complete this topic Insurance [facility] Care Teams Installation Manager Relationship Specialty Start Date End Date Teo Beaulieu MD [address] [place] [address] PCP - General Internal Medicine 04/11/23
[2024-11-12 14:19] LABS: Hematocrit 36.6 % (37.0-47.0); Hemoglobin 11.5 g/dl (12.0-16.0); Mean Corpuscular HGB Conc 31.4 g/dl (31.0-35.0); Mean Corpuscular Hemoglobin 25.4 pg (27.0-33.0); Mean Corpuscular Volume 80.8 fL (80.0-98.0); NRBC Abs Auto 0.000 X10*3/uL (0.0-0.012); NRBC Pct Auto 0.0 /100WBC (0.0-0.2); Platelet Count 307 X10*3/uL (160-400); Red Blood Count 4.53 X10*6/uL (4.20-5.50); White Blood Count 6.9 X10*3/uL (4.8-10.8)
[2024-11-12 14:23] LABS: INTERNATIONAL NORM RATIO 1.0 (0.9-1.1); Prothrombin Time 11.1 SEC (10.9-12.4)
[2024-11-12 14:49] LABS: Alanine Aminotransferase 11 U/L (0-31); Anion Gap 14 (12-20); Aspartate Amino Transferase 28 U/L (5-31); Blood Urea Nitrogen 16 mg/dL (9-16); Calcium 9.1 mg/dL (8.4-10.2); Carbon Dioxide 21 mmol/L (22-29); Chloride 111 mmol/L (96-108); Cholesterol 286 mg/dL (<200); Estimated Glomerular Filt Rate 54; HDL Cholesterol 49 mg/dL (>40); Potassium 4.1 mmol/L (3.3-5.1); Sodium 142 mmol/L (135-145); Triglycerides 158 mg/dL (<150)
== END 2024-11-12 10:58 | disposition home or self-care (01) ==
LOC: HO.WFDLDS 10:57
PROVIDERS: Referring Provider Internal Medicine Cardiovascular Disease; Visit Provider Internal Medicine
DX: I20.0 Unstable angina (principal); L90.0 Lichen sclerosus et atrophicus; G47.419 Narcolepsy without cataplexy; E78.00 Pure hypercholesterolemia, unspecified; I10 Essential (primary) hypertension
CPT/HCPCS: 36415; 80048; 80061; 82306; 84450; 84460; 85027; 85610

== ENCOUNTER 2024-11-13 12:37 | Outpatient (AMB) | payer MEDICARE, SELFPAY ==
--- OUTSIDE RECORDS SUMMARY | 2021-09-15 14:29 | XMS_ITS | Encounter Summary ---
Author Organization [facility] Address [address] [place] [address] [place] [address] Phone Care Team Providers Care Pest Control Worker Helper Name Role Phone Guillermina Miranda MD Unavailable [phone] Zo Beaulieu MD Primary Care Provider Encounter Details Date Type Department Care Team (Late st Contact Info) Description 09/15/2021 2:29 PM EDT Hospital Encounter [facility] [address] [place] [address] Megan Bolden CNP [address] [place] [address] [email or web address] Social History Tobacco Use Types Packs/Day Years [...] in mildneuroforaminal narrowing as described. Megan Bolden [employer] ENGLISH TEACHER IMG XR SPINE Final Resul t documented in this encounter Visit Diagnoses Not on filedocumented in this encounter Care Teams Pest Control Worker Helper Relationship Specialty Start Date End Date Zo Beaulieu MD [facility] [place] [address] PCP - General Internal Medicine 05/21/20 Guillermina Miranda MD [address] [place] [address], [facility] [address] [place] [address] [email or web address] Historical LMR Provider 12/04/16 documented as of this encounter Additional Source Comments The information contained in this document represents components of the legal health record. It is not the complete legal health record.[facility]
--- OUTSIDE RECORDS SUMMARY | 2021-09-15 14:29 | XMS_ITS | Encounter Summary ---
Author Organization [facility] Address [address] [place] [address] [place] [address] Phone Care Team Providers Care Battery Vent Plug Inserter Name Role Phone Guillermina Miranda MD Unavailable [phone] Zo Beaulieu MD Primary Care Provider Encounter Details Date Type Department Care Team (Late st Contact Info) Description 09/15/2021 2:29 PM EDT Hospital Encounter [facility] [address] [place] [address] Megan Bolden CNP [address] [place] [address] [email or web address] Social History Tobacco Use Types [...] IMPRESSION: No fracture or dislocation. Megan Bolden HAND GLUER AND SLICER IMG XR UPPER EXTREMITY Nisha l Result documented in this encounter Visit Diagnoses Not on filedocumented in this encounter Care Teams Battery Vent Plug Inserter Relationship Specialty Start Date End Date Zo Beaulieu MD [facility] [place] [address] PCP - General Internal Medicine 05/21/20 Guillermina Miranda MD [address] [place] [address], [address] [place] [address] [email or web address] Historical LMR Provider 12/04/16 documented as of this encounter Additional Source Comments The information contained in this document represents components of the legal health record. It is not the complete legal health record.[facility]
--- OUTSIDE RECORDS SUMMARY | 2023-11-15 07:15 | XMS_ITS ---
Author Organization [facility] Address [address] [place] [id number] Care Team Providers Care Batch Room Technician Name Role Phone Christofer CHUNG, Zo Primary Care Provider Ruben Esteves Jr, Ken Bond REASON FOR VISIT gerd,screening Problems Problem Type SNOMED Code ICD Code Onset Dates Problem Status W/U Status Risk Notes Problem Gastro-esophagea l reflux disease without esophagitis (354375318) Gastro-esophage al reflux disease without esophagitis (K21.9) Active confirmed Encounters Encounter Location Date Provider Diagnosis [facility] Outpatient [address] [place] [phone] 11/15/2023 Ken Esteves Jr Encounter for screening colonoscopy Z12.11 and Gastro-esophageal reflux disease without esophagitis K21.9 Assessments Encounter Date Diagnosis (ICD Code) Assessment Notes Treatment Notes Treatment Clinical Notes Section Notes 11/15/2023 Encounter for screening colonoscopy (ICD-10 - Z12.11) 11/15/2023 Gastro-esophagea l reflux disease without esophagitis (ICD-10 - K21.9) Plan Of Treatment No Information Progress Notes * DEBO HUOB:1945 (79 yo F)Acc No.[id number]:11/15/2023 EGD and COL/MAC Patient: NGA WOLF Provider: Krishna Esteves MD :1945 A ge:78 Y S ex:Female Date:11/15/2023 Address:[address] [place], [place] [id number] Pcp:Zo Beaulieu MD Subjective: * Chief Complaints: * 1 . Gerd,screening. * Medical History: Objective: * Vitals: Assessment: * Assessment: 1. E ncounter for screening colonoscopy - Z12.11 (Primary) 2 . G pao-esophageal reflux disease without esophagitis - K21.9 Plan: * Treatment: * Procedure Codes: 4 5380 COLONOSCOPY AND BIOPSY, [address] UPPER GI ENDOSCOPY, BIOPSY * * The named appointment provid er may or may not be the originator of this progress note, and it is not deemed complete until electronically signed by the appointment provider. Sign off status: Pending * Provider: Krishna Esteves MD Date: Generated for Edmar cota/Rocky/Lauraitting on: 0 11/13/2024 01:45 PM EDT
--- NOTE | 2024-11-13 12:41 | MHC.PC.OV ---
Vital Signs 11/13/24 12:42 11/13/24 13:21 Height 5 ft 2 in Weight 142 lb BMI 26.0 BP 142/84 H 135/80 Blood Pressure Location Lt brachial Lt brachial Position Sitting Sitting Pulse 86 Pulse Source Pulse Oximeter Pulse Oximetry (%) 98 Intake Visit Reasons: Annual PE- see comments Allergies No Known Allergies (No Known Allergies*) Allergy (Verified 11/18/24 21:55) Medication List - Last Reconciled 11/18/24 by Zo Beaulieu MD cholecalciferol (vitamin D3) 50 mcg PO DAILY clobetasol 0.05% grams topical 3XW PRN duloxetine 60 mg PO DAILY enalapril maleate 20 mg PO DAILY estradiol 1 patch topical 2XW folic acid 1 mg PO DAILY metoprolol succinate ER 50 mg PO DAILY modafinil take 200 mg in am and 100 mg in pm 30 days mometasone 0.1% 1 appl topical DAILY PRN omeprazole 40 mg PO DAILY rosuvastatin 5 mg PO DAILY Tobacco use date assessed: 08/16/24 Fall risk assessment: No Falls in past year Last assessed Fall Risk: 11/13/24 Dental Screening Dental Screen Date: 08/16/24 HPI Annual PE- see comments HPI Details The patient is a 79-year-old female with history of Hypertension, Hyperlipidemia, osteoporosis, Anxiety disorder , Narcolepsy , Lichen sclerosus , presenting today for her physical exam. She is currently on metoprolol and enalapril for blood pressure management, but her readings have been fluctuating, particularly after exertion. The patient reports a significant increase in weight over the past year, with her weight rising from the 130s to 142 pounds. 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 The patient has hyperlipidemia, with LDL cholesterol levels rising to 206 mg/dL from 101 mg/dL. She was previously on rosuvastatin, was doing well on it with no adverse effects reported , but she discontinued it due to concerns about side effects. The patient is experiencing menopausal symptoms, including persistent hot flashes, despite being on estradiol patches. The patient has a history of osteoporosis, with a previous DEXA scan indicating osteopenia in the left hip and osteoporosis in the right hip. She is currently on estrogen therapy, which is expected to help with bone density, but a follow-up scan has been ordered to reassess her condition. The patient is slightly anemic, with a hemoglobin level of 11.5 g/dL, down from 12 g/dL. She consumes a diet rich in vegetables and some meat, but does not take a multivitamin or iron supplement. The patient has a history of anxiety, which may be contributing to her elevated blood pressure. She is currently on duloxetine, which she has been taking for several years, and reports no significant side effects. She sees Dr. Fermin Alberto, her OBGYN who currently follows her for her lichen sclerosis, and ordered a bone density scan done last year which showed presence of normal bone density in lumbar spine, but osteoporosis in her right femoral neck. Up-to-date with her screening colonoscopy due again in 2033 [facility] Medical History Osteoporosis Impaired fasting glucose Lichen sclerosus Hx of gastritis Narcolepsy Rotator cuff impingement syndrome of left shoulder Lumbar radiculopathy, right Arthritis of both hands Surgical History History of cataract surgery Hx of colonoscopy H/O microdiscectomy History of bowel resection Family History Brother S/P TAVR (transcatheter aortic valve replacement) Social History Housing: House Alcohol intake: unknown Patient Tobacco Use Status: Former Tobacco user e-Cigarette/Vaping Use: Never Used service: No Current occupational status: retired Current occupation: right Handed Cognitive needs: No Hearing needs: No Vision needs: Yes Questionnaire PHQ-9 Over the last 2 weeks, how often have you been bothered by any of the following problems? 1. Little interest or pleasure in doing things: not at all 2. Feeling down, depressed, or hopeless: not at all 3. Trouble falling or staying asleep, or sleeping too much: not at all 4. Feeling tired or having little energy: not at all 5. Poor appetite or overeating: not at all 6. Feeling bad about yourself - or that you are a failure or have let yourself or your family down: not at all 7. Trouble concentrating on things, such as reading the newspaper or watching television: not at all 8. Moving or speaking so slowly that other people could have noticed. Or the opposite - being so fidgety or restless that you have been moving around a lot more than usual: not at all 9. Thoughts that you would be better off or of hurting yourself in some way: not at all Total score: 0 Depression Screening Interpretation: Negative Depression Screening Done: Yes Source: Developed by Drs. Brian Colon, Althea Harry, Chalo Murray and colleagues, with an educational aisha from [employer]. Thrive Questionnaire Date Thrive assessed: 05/02/24 I am a: Patient What is your living situation today?: I have a steady place to live Within the past 12 months, did the food you bought not last and you didn't have the money to get more?: Never true Within the past 12 months, did you worry whether your food would run out before you got money to buy more?: Never true Do you have trouble paying for medicines?: No Do you have trouble getting transportation to medical appointments?: No Do you have trouble paying your heating and electricity bill?: No Do you have trouble taking care of your child, family member or friend?: No Do you have trouble with day-to-day activities such as bathing, preparing meals, shopping, managing finances, etc.?: No Are you currently unemployed and looking for a job?: No Are you interested in more education?: No Please select the resources that you would like help with: None Currently or been in a relationship where the following occur: No concerns reported THRIVE Score: 0 AUDIT C Alcohol Use Questionnaire (AUDIT-C) 1. How often do you have a drink containing alcohol?: Monthly or less 2. How many drinks containing alcohol do you have on a typical day when you are drinking?: 1 or 2 3. How often do you have six or more drinks on one occasion?: Never Total Score: 1 Score Reviewed/Action Taken: Yes INDIRA-7 AMB Questionnaire INDIRA-7 Date INDIRA - 7 assessed: 11/13/24 Feeling nervous, anxious, or on edge: 0 = Not at all Not being able to stop or control worryin = Not at all Worrying too much about different things: 0 = Not at all Trouble relaxin = Not at all Being so restless that it is hard to sit still: 0 = Not at all Becoming easily annoyed or irritable: 0 = Not at all Feeling afraid as if something awful might happen: 0 = Not at all Total INDIRA-7 score (0-4 normal; 5-9 mild; 10-14 moderate; 15-21 severe): 0 Source: Developed by Drs. Brian Colon, Althea Harry, Chalo Murray and colleagues, with an educational aisha from [employer]. INDIRA-7 Assessment Billing INDIRA-7 Assessment Tool: INDIRA-7 Assessment 95937 Review of Systems Const Reports as per HPI, Denies fever(s), Denies frequent falls and Denies weakness Eyes Denies change in vision ENT Denies dizziness Card Denies leg edema, Denies lightheadedness, Denies dyspnea and Denies dyspnea on exertion Resp Denies cough, Denies dyspnea and Denies dyspnea on exertion GI Reports no additional complaints Reports no additional complaints Musc Denies abnormal gait, Denies muscle weakness, Denies numbness, Denies radiating pain into limb, Reports stiffness and Denies tingling Skin/Breast Denies breast pain, Denies breast mass and Denies rash Neuro Denies abnormal gait, Denies dizziness, Denies frequent falls, Denies numbness, Denies tingling and Denies weakness Psych Reports no additional complaints Endo Reports as per HPI Azam/Lymph Reports no additional complaints Aller/Immun Reports no additional complaints Physical exam (Primary Care) Vital Signs: Last Vital Signs Pulse 86 11/13/24 12:42 BP 135/80 11/13/24 13:21 Pulse Ox 98 11/13/24 12:42 BMI result Body Mass Index 26.0 Tobacco/Smoking Status: Tobacco use Status Tobacco use date assessed 08/16/24 11/13/24 12:45 Patient Tobacco Use Status Former Tobacco user 11/13/24 12:45 e-Cigarette/Vaping Use Never Used 11/13/24 12:45 PHQ-9: PHQ-9 Score PHQ-9: Total score 0 11/13/24 13:02 Depression Screening Interpretation: Negative Thrive Assessment: Date of Thrive Assessment Date Thrive assessed 05/02/24 11/13/24 12:45 Currently or been in a relationship where the following occur: No concerns reported Const General: comfortable and no acute distress Orientation/consciousness: patient oriented x3 HENMT Ears: external ears normal General nose exam: Normal external nose present Face and sinus: Yes face symmetric Mouth: Normal oral and palatal mucosa present, oropharynx normal and moist mucous membranes Eyes General: appearance normal, both eyes and all related structures Neck Neck: Yes full ROM, Yes no lymphadenopathy and Yes supple Thyroid: Thyroid normal Chest Breast/axilla palpation: normal palpation of the breasts Resp Effort & Inspection: normal respiratory effort and able to speak in complete sentences Auscultation: clear to auscultation bilaterally Cardio Rate: regular rate Rhythm: regular rhythm Heart sounds: S1 normal heart sound present and S2 normal heart sound present GI Inspection: Yes normal to inspection Palpation (GI): Soft to palpation, nontender, no guarding and no masses Auscultation: normal bowel sounds General: Yes no CVA tenderness Back/Spine/Pelvis Back: no CVA tenderness and No back tenderness Skin General skin exam: no rashes or lesions noted Neuro General: patient oriented x3, gait normal, moves all extremities, Normal light touch and pain sensation, no focal motor deficits and CN's II-XI intact bilaterally Extrem General: Yes full ROM, Yes no joint enlargement, Yes no pedal edema and Yes normal gait Psych Appearance: grossly normal and well kempt Affect: normal affect Results Reviewed Results Reviewed: shanelle: Azalia Coleman Age/Sex: 79/F : 1945 Unit#: [id number] Attend Dr: Zo Beaulieu MD Re11/12/24 Status: DEP REF Location: [facility] Disch: SPEC : [id number] LENARD: 11/12/24 STATUS: COMP REQ : [id number] RECD: 11/12/[address]: Marcial Ni MD COMP: 11/12/24 ENTERED: 11/12/[address]: Zo Beaulieu MD ORDERED: CBC No Diff Test Result Flag Reference WBC 6.9 4.8-10.8 X10*3/uL RBC 4.53 4.20-5.50 X10*6/uL HGB 11.5 L 12.0-16.0 g/dl HCT 36.6 L 37.0-47.0 % MCV 80.8 80.0-98.0 fL MCH 25.4 L 27.0-33.0 pg MCHC 31.4 31.0-35.0 g/dl RDW 14.1 11.0-16.0 % PLT 307 160-400 X10*3/uL MPV 10.8 9.4-12.3 fL NRBC Pct Auto 0.0 0.0-0.2 /100WBC NRBC Abs Auto 0.000 0.0-0.012 X10*3/uL Name: Azalia Coleman Age/Sex: 79/F : 1945 Unit#: [id number] Attend Dr: Zo Beaulieu MD Re11/12/24 Status: DEP REF Location: [facility] Disch: SPEC : [id number] LENARD: 11/12/24 STATUS: COMP REQ : [id number] RECD: 11/12/24-[address]: Zo Beaulieu MD COMP: 11/12/24-1451 ENTERED: 11/12/24-[address]: Marcial Ni MD ORDERED: BMP, Met Prof Fast, AST, ALT, Lipid Panel, Vitamin D 25-OH Test Result Flag Reference Sodium 142 135-145 mmol/L Potassium 4.1 3.3-5.1 mmol/L CL 111 H 96-108 mmol/L CO2 21 L 22-29 mmol/L Gap 14 12-20 BUN 16 9-16 mg/dL Creat 0.99 0.5-1.4 mg/dL eGFR 54 Chronic Kidney Disease: Estimated GFR < 60 mL/min/1.73m2 Severe Kidney Disease: Estimated GFR < 15 mL/min/1.73m2 Glucose, Random 90 60-115 mg/dL FBS 90 60-99 mg/dL CA 9.1 8.4-10.2 mg/dL AST (GOT) 28 5-31 U/L ALT (GPT) 11 0-31 U/L Triglyceride 158 H <150 mg/dL Desirable Triglyceride: less than 150 mg/dL Borderline High Triglyceride 150-199 mg/dL High Triglyceride: 200-499 mg/dL Very High Triglyceride: greater than or equal to 5OO mg/dL Cholesterol 286 H <200 mg/dL Desirable Cholesterol: less than 200 mg/dL Borderline High Cholesterol: 200-239 mg/dL High Cholesterol: greater than 239 mg/dL LDL Calculated 206 H <100 mg/dL Desirable LDL: less than 100 mg/dL Near Optimal/Above Optimal LDL: 110-129 mg/dL Borderline High LDL: 130-159 mg/dL High LDL: 160-189 mg/dL Very High LDL: greater than or equal to 190 mg/dL HDL 49 >40 mg/dL Desirable HDL: greater than 40 mg/dL Note: This HDL assay may give artificially low results in patients with liver disease. 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 Alberto Code(s): M81.0 - Age-related osteoporosis without current pathological fracture Category: Medical Qualifiers: Osteoporosis type: age-related Presence of current pathological fracture: without current pathological fracture Qualified Code(s): M81.0 - Age-related osteoporosis without current pathological fracture Plan: Currently followed by Dr. Sommer, on estradiol patch. Reinforced importance of doing regular weight-bearing exercise, taking adequate calcium from dietary sources and continue with vitamin-D 3 supplements at least 2000 units daily (2) Essential hypertension: Code(s): I10 - Essential (primary) hypertension Category: Medical Plan: Blood pressure goal is less than 130/80. Continue on enalapril 20 mg daily, metoprolol succinate ER 50 mg daily. Reinforced importance of following a low sodium diet, getting regular exercise, and lowering stress levels. (3) Hyperlipidemia: Code(s): E78.5 - Hyperlipidemia, unspecified Category: Medical Qualifiers: Hyperlipidemia type: pure hypercholesterolemia Qualified Code(s): E78.00 - Pure hypercholesterolemia, unspecified Plan: Reviewed recent fasting lipid profile with patient with marked elevations in her lipid levels especially her LDL cholesterol which is now at 206 mg/dL. . Started back on rosuvastatin 5 mg daily which she was tolerating in the past , stressed importance of adherence to low-cholesterol diet and regular exercise, at least 30 minutes 3 to 4 times a week. Advised patient to make healthy food choices, eat more fruits, vegetables, whole grains, wild caught fish and low-fat dairy. Limit amount of meat and fried or fatty food products, as well as processed foods and fast foods. Follow-up scheduled with repeat fasting lipid panel in 3 months. (4) Annual visit for general adult medical examination with abnormal findings: Code(s): Z00.01 - Encounter for general adult medical examination with abnormal findings Plan: Reviewed recent fasting lab results with patient. Recommended dental visit every 6 months and regular eye exams, at least every 2 years. Take adequate calcium in diet and vitamin-D 3 at 2000 IU per cap once a day, in addition to weight-bearing exercises to help maintain good muscle tone and weight control. Instructed to do self-breast exam, and continue to get yearly mammogram. Currently being followed by her own OBGYN for treatment of lichen sclerosis and osteoporosis.. Up-to-date with her screening colonoscopy. Reminded to get her yearly flu vaccine, encouraged to get a COVID booster. Reminded to get her shingles vaccination completed, up-to-date with her Tdap and pneumonia vaccine (5) Narcolepsy: Code(s): G47.419 - Narcolepsy without cataplexy Category: Medical Qualifiers: Narcolepsy type: primary without cataplexy Qualified Code(s): G47.419 - Narcolepsy without cataplexy Plan: Continue modafinil Orders: Orders Lipid Panel 01/19/25 E78.00 - Pure hypercholesterolemia, unspecified, I10 - Essential (primary) hypertension, M81.0 - Age-related osteoporosis without current pathological fracture Basic Metabolic Panel Fasting 01/19/25 E78.00 - Pure hypercholesterolemia, unspecified, I10 - Essential (primary) hypertension, M81.0 - Age-related osteoporosis without current pathological fracture Aspartate Amino Transferase 01/19/25 E78.00 - Pure hypercholesterolemia, unspecified, I10 - Essential (primary) hypertension, M81.0 - Age-related osteoporosis without current pathological fracture Alanine Aminotransferase 01/19/25 E78.00 - Pure hypercholesterolemia, unspecified, I10 - Essential (primary) hypertension, M81.0 - Age-related osteoporosis without current pathological fracture Vitamin D 25-OH Total 01/19/25 E78.00 - Pure hypercholesterolemia, unspecified, I10 - Essential (primary) hypertension, M81.0 - Age-related osteoporosis without current pathological fracture Complete Blood Count Auto Diff 01/19/25 E78.00 - Pure hypercholesterolemia, unspecified, I10 - Essential (primary) hypertension, M81.0 - Age-related osteoporosis without current pathological fracture Ferritin 01/19/25 E78.00 - Pure hypercholesterolemia, unspecified, I10 - Essential (primary) hypertension, M81.0 - Age-related osteoporosis without current pathological fracture XR DEXA axial skeleton 11/13/24 M81.0 - Age-related osteoporosis without current pathological fracture IRON PROFILE 01/19/25 E78.00 - Pure hypercholesterolemia, unspecified, I10 - Essential (primary) hypertension, M81.0 - Age-related osteoporosis without current pathological fracture Medications: New rosuvastatin 5 mg PO DAILY 90 tabs 1RF
[2024-11-13 12:42] VITALS: BP 142/84; PULSE 86; O2SAT 98; BMI 26.0
[2024-11-13 13:21] VITALS: BP 135/80
--- OUTSIDE RECORDS SUMMARY | 2024-11-13 13:45 | XMS_ITS | Clinical Summary ---
Author Organization [facility], Address [address] [place] [address] Phone Care Team Providers Care Photoengraving Proofer Name Role Phone Teo Beaulieu MD Primary Care Provider [phone] Allergies No known active allergies Medications oxyCODONE-aceta [...] patient's age to complete this topic Insurance [facility] Care Teams Photoengraving Proofer Relationship Specialty Start Date End Date Teo Beaulieu MD [address] [place] [address] PCP - General Internal Medicine 04/11/23
--- OUTSIDE RECORDS SUMMARY | 2024-11-13 13:45 | XMS_ITS | Clinical Summary ---
Author Organization [facility] Address [address] [address] Phone Care Team Providers Care Brush Trimming Machine Setter Name Role Phone Guillermina Miranda MD Unavailable [phone] Zo Beaulieu MD Primary Care Provider Allergies [...] Counseled on lack of safety date re: correction use. Appropriate candidate, low ASCVD. Rx refilled. [...] Office Visit [facility] [address] [place] [address] [place] [address] Guillermina Miranda MD Encounter for gynecological examination with abnormal finding (Primary Dx); Lichen sclerosus; Menopausal symptoms; Vasomotor symptoms due to menopause 09/12/2024 Telephone [facility] [address] [place] [address] [place] [address] Guillermina Miranda MD Appointment from Last 3 [...] Insurance [employer] H[place] [address] [place] [address] [place] [place] [address] [place] [place] [address] MEDICARE HMO REPLACEMENT MEDICARE HMO REPLACEMENT MEDICARE HMO REPLACEMENT MEDICARE HMO REPLACEMENT [facility] MED[employer] HMO REPLACEMENT [facility] [employer] H[employer] REPLACEMENT Care Teams Brush Trimming Machine Setter Relationship Specialty Start Date End Date Zo Beaulieu MD [address] [place] [address] PCP - General Internal Medicine 05/21/20 Guillermina Miranda MD [address] [place] [id number] [email or web address] Historical LMR Provider 12/04/16 Additional Source Comments The information contained in this document represents components of the legal health record. It is not the complete legal health record.[facility]
--- OUTSIDE RECORDS SUMMARY | 2024-11-13 13:45 | XMS_ITS | Encounter Summary ---
Author Organization [facility], Address [address] [place] [address] Phone Care Team Providers Care Servomechanism Assembler Name Role Phone Teo Beaulieu MD Primary Care Provider [phone] Reason for Visit * Reason Comments Med Refill Encounter Details Date Type Department Care Team (Late st Contact Info) Description 02/28/2021 Refill [facility] [address] [place] [phone] Jeffy Ewing MD Social History Tobacco Use Types Packs/Day [...] on filedocumented in this encounter Care Teams Servomechanism Assembler Relationship Specialty Start Date End Date Teo Beaulieu MD [address] [facility] [place] [address] PCP - General Internal Medicine 04/11/23 documented as of this encounter
--- OUTSIDE RECORDS SUMMARY | 2024-11-13 13:45 | XMS_ITS | Patient Health Record ---
Author Organization [facility] Address [address] [place] [address] Care Team Providers Care Business Planning Director Name Role Phone Christofer CHUNG, Zo Primary Care Provider Ruben Esteves Jr, Ken Unavailable Allergies No Known Allergies Results Component Value Reference Range Notes Pathology Reviewed date:11/24/2023 11:17:33 AM Interpretation: Performing Lab:[facility], [address] [place] [phone] Notes/Report: Reason For Referral No Information Medications [...] Omeprazole 40 mg TAKE 1 CAPSULE BY [facility] 30 MINUTES BEFORE MORNING MEAL ONCE DAILY for 30 Active Immunizations Vaccine Route Administration Date Status Comme nts Influenza Unknown 11/14/2017 Administered Influenza Unknown 10/24/2023 Refused Problems Problem Type SNOMED Code ICD Code Onset Dates Problem Status W/U Status Risk Notes Problem [id number] Colon cancer screening (Z12.11) Active confirmed Problem Gastro-esophage al reflux disease without esophagitis (906637580) Gastro-esophageal reflux disease without esophagitis (K21.9) Active confirmed Problem 192353344 Gastroesophageal reflux disease without esophagitis (K21.9) Active confirmed Problem 32245315 Ischemic colitis (K55.9) Active confirmed Encounters Encounter Location Date Provider Diagnosis [facility] [address] [place], [place] [phone] 11/15/2023 Ken Esteves Jr Encounter for screening colonoscopy Z12.11 and Gastro-esophageal reflux disease without esophagitis K21.9 [facility] [address] [place] [address] 11/24/2023 Ken Esteves Jr Assessments Encounter Date [...] Insured Coverage Start Date Coverage End Date [facility] [address] [place] [phone] [id number] [employer] [employer] Self - patient is the [...]
--- OUTSIDE RECORDS SUMMARY | 2024-11-13 13:45 | XMS_ITS | Encounter Summary ---
Author Organization [facility], Address [address] [place] [address] Phone Care Team Providers Care Pyrotechnics Press Tender Name Role Phone Teo Beaulieu MD Primary Care Provider [phone]- [phone] Encounter Details Date Type Department Care Team (Late st Contact Info) Description 04/21/2022 Documentation Only [facility], [address] [place] [address] Irvin Terrazas MD [address] [place] [phone] Social History Tobacco Use Types Packs/Day Years [...] on filedocumented in this encounter Care Teams Pyrotechnics Press Tender Relationship Specialty Start Date End Date Teo Beaulieu MD [address] [place] [address] PCP - General Internal Medicine 04/11/23 documented as of this encounter
--- OUTSIDE RECORDS SUMMARY | 2024-11-13 13:45 | XMS_ITS | Encounter Summary ---
Author Organization [facility] Address [address] [place] [address] [place] [address] Phone Care Team Providers Care Marketing Campaign Analyst Name Role Phone Guillermina Miranda MD Unavailable [phone] Zo Beaulieu MD Primary Care Provider Encounter Details Date Type Department Care Team (Latest Contact Info) Description 09/15/2021 Transcribe Orders Virtual Department [address] [place] [address] Brian Alberto MD [address] [place] [address] Symptomatic menopausal or female climacteric states (Primary [...] states documented in this encounter Care Teams Marketing Campaign Analyst Relationship Specialty Start Date End Date Zo Beaulieu MD [address] [place] [address] PCP - General Internal Medicine 05/21/20 Guillermina Miranda MD [address] [place] [address], [address] [place] [address] [email or web address] Historical LMR Provider 12/04/16 documented as of this encounter Additional Source Comments The information contained in this document represents components of the legal health record. It is not the complete legal health record.[facility]
== END 2024-11-13 13:34 | disposition home or self-care (01) ==
LOC: HO.HMCC 12:38
PROVIDERS: PCP Internal Medicine; Visit Provider Internal Medicine
DX: M81.0 Age-related osteoporosis without current pathological fracture (principal); I10 Essential (primary) hypertension; E78.00 Pure hypercholesterolemia, unspecified; Z00.01 Encounter for general adult medical examination with abnormal findings; G47.419 Narcolepsy without cataplexy; Z00.00 Encounter for general adult medical examination without abnormal findings

== ENCOUNTER → 2024-11-13 12:37 | Outpatient (BNVA) | payer MEDICARE, SELFPAY | PROVIDERS: PCP Internal Medicine; Visit Provider Internal Medicine | DX: Z00.01 Encounter for general adult medical examination with abnormal findings (principal); I10 Essential (primary) hypertension; E78.5 Hyperlipidemia, unspecified; M81.0 Age-related osteoporosis without current pathological fracture; F41.9 Anxiety disorder, unspecified; N95.1 Menopausal and female climacteric states; R23.2 Flushing; D64.9 Anemia, unspecified; E78.00 Pure hypercholesterolemia, unspecified; G47.419 Narcolepsy without cataplexy | CPT/HCPCS: 96127; 99397 ==

== ENCOUNTER 2025-02-11 11:57 | Outpatient (REF) | payer MEDICARE, SELFPAY ==
--- OUTSIDE RECORDS SUMMARY | 2021-09-15 13:29 | XMS_ITS | Encounter Summary ---
Author Organization [facility] Address [address] [place] [address] [place] [address] Phone Care Team Providers Care Drafter Commercial Name Role Phone Guillermina Miranda MD Unavailable [phone] Zo Beaulieu MD Primary Care Provider Encounter Details Date Type Department Care Team (Late st Contact Info) Description 09/15/2021 2:29 PM EDT Hospital Encounter [facility] [address] [place] [address] Megan Bolden CNP [address] [place] [address] [email or web address] Social History Tobacco Use Types Packs/Day Years Used Date Smoking Tobacco: Never Smokeless Tobacco: Never Alcohol Use Standard Drinks/Week Comments Never 0 (1 standard drink = 0.6 oz pur e alcohol) Education Answer Date Recorded Are you interested in more education? Not on shaylee e 06/11/2022 Are you concerned about learning? Not on file 06/11/2022 No 06/11/2022 No 06/11/2022 Digital Access Answer Date Recorded No 07/12/2022 No 07/12/2022 Reliable internet access at home? Not on file 07/12/2022 Device with a working camera? Not on file Comments No Sex and Gender Information Value Date Recorded Sex Assigned at Not on file Legal Sex Female 4:20 PM EDT Gender Identity Not on file Sexual Orientation Not on file documented as of this encounter Plan of Treatment Not on file documented as of this encounter Procedures Procedure Name Priority Date/Time Associated Diagnosis Comments XR CERVICAL SPINE 4-5 VIEWS Routine 09/15/2021 2:44 PM EDT Neck pain on left side documented in this encounter Results * XR CERVICAL SPINE 4-5 VIEWS (09/15/2021 2:44 PM EDT) Anatomical Region Laterality Modality C-spine Computed Radiogr aphy 09/15/2021 3:30 PM EDT Impressions 09/15/2021 3:32 PM EDT 1.No displaced fracture. 2.Multilevel discovertebral and facet degeneration resulting in mild neuroforaminal narrowing as described. Narrative 09/15/2021 3:32 PM EDT XR CERVICAL SPINE 4-5 VIEWS COMPARISON: None FINDINGS: Normal alignment. Normal vertebral body heights. Mild multilevel disc space narrowing, most pronounced at C5-6. Multilevel uncovertebral hypertrophy and facet arthropathy. Mild left neuroforaminal narrowing at C4-5 and C5-6, and mild right neuroforaminal narrowing at C3-4. No prevertebral soft tissue swelling. Procedure Note Bertha Duron MD - 09/15/2021 XR CERVICAL SPINE 4-5 VIEWS COMPARISON: None FINDINGS: Normal alignment. Normal vertebral body heights. Mild multilevel discspace narrowing, most pronounced at C5-6. Multilevel uncovertebralhypertrophy and facet arthropathy. Mild left neuroforaminal narrowing atC4-5 and C5-6, and mild right neuroforaminal narrowing at C3-4. Noprevertebral soft tissue swelling. IMPRESSION: 1.No displaced fracture. 2.Multilevel discovertebral and facet degeneration resulting in mildneuroforaminal narrowing as described. Megan Bolden CANDLE MAKER IMG XR SPINE Final Resul t documented in this encounter Visit Diagnoses Not on filedocumented in this encounter Care Teams Drafter Commercial Relationship Specialty Start Date End Date Zo Beaulieu MD [facility] [place] [address] PCP - General Internal Medicine 05/21/20 Guillermina Miranda MD [address] [place] [address], [facility] [address] [place] [address] [email or web address] Historical LMR Provider 12/04/16 documented as of this encounter Additional Source Comments The information contained in this document represents components of the legal health record. It is not the complete legal health record.[facility]
--- OUTSIDE RECORDS SUMMARY | 2021-09-15 13:29 | XMS_ITS | Encounter Summary ---
Author Organization [facility] Address [address] [place] [address] [place] [address] Phone Care Team Providers Care Aerial Gunner Name Role Phone Guillermina Miranda MD Unavailable [phone] Zo Beaulieu MD Primary Care Provider Encounter Details Date Type Department Care Team (Late st Contact Info) Description 09/15/2021 2:29 PM EDT Hospital Encounter [facility] [address] [place] [address] Megan Bolden CNP [address] [place] [address] [email or web address] Social History Tobacco Use Types Packs/Day Years [...] Name Priority Date/Time Associated Diagnosis Comments XR HUMERUS (LEFT) Routine 09/15/2021 2:4 4 PM EDT Left upper arm pain documented in this encounter Results * XR Humerus (Left) (09/15/2021 2:44 PM EDT) Anatomical Region Laterality Modality Arm Left Computed Radiogr aphy 09/15/2021 3:29 PM EDT Impressions 09/15/2021 3:30 PM EDT No fracture or dislocation. Narrative 09/15/2021 3:30 PM EDT XR HUMERUS (LEFT) COMPARISON: None FINDINGS: No fracture. Normal alignment. No lytic or blastic lesion. Visualized portions of the shoulder and elbow appear intact. Moderate acromioclavicular arthropathy. Procedure Note Bertha Duron MD - 09/15/2021 XR HUMERUS (LEFT) COMPARISON: None FINDINGS: No fracture. Normal alignment. No lytic or blastic lesion. Visualizedportions of the shoulder and elbow appear intact. Moderateacromioclavicular arthropathy. IMPRESSION: No fracture or dislocation. Megan Bolden DOOR MAKER IMG XR UPPER EXTREMITY Nisha l Result documented in this encounter Visit Diagnoses Not on filedocumented in this encounter Care Teams Aerial Gunner Relationship Specialty Start Date End Date Zo Beaulieu MD [facility] [place] [address] PCP - General Internal Medicine 05/21/20 Guillermina Miranda MD [address] [place] [address], [address] [place] [address] [email or web address] Historical LMR Provider 12/04/16 documented as of this encounter Additional Source Comments The information contained in this document represents components of the legal health record. It is not the complete legal health record.[facility]
--- OUTSIDE RECORDS SUMMARY | 2023-11-15 06:15 | XMS_ITS ---
Author Organization [facility] Address [address] [place] [phone] Care Team Providers Care Shearing Shed Hand Name Role Phone Christofer CHUNG, Zo Primary Care Provider Ruben Esteves Jr, Ken Bond REASON FOR VISIT gerd,screening Problems Problem Type SNOMED Code ICD Code Onset Dates Problem Status W/U Status Risk Notes Problem Gastro-esophagea l reflux disease without esophagitis (330631843) Gastro-esophage al reflux disease without esophagitis (K21.9) Active confirmed Encounters Encounter Location Date Provider Diagnosis [facility] [place] Outpatient [address] [place] [phone] 11/15/2023 Ken Esteves Jr Encounter for screening colonoscopy Z12.11 and Gastro-esophageal reflux disease without esophagitis K21.9 Assessments Encounter Date Diagnosis (ICD Code) Assessment Notes Treatment Notes Treatment Clinical Notes Section Notes 11/15/2023 Encounter for screening colonoscopy (ICD-10 - Z12.11) 11/15/2023 Gastro-esophagea l reflux disease without esophagitis (ICD-10 - K21.9) Plan Of Treatment No Information Progress Notes * DEBO HUOB:1945 (80 yo F)Acc No.[id number]:11/15/2023 EGD and COL/MAC Patient: NGA WOLF Provider: Krishna Esteves MD :1945 A ge:78 Y S ex:Female Date:11/15/2023 Address:[address] [place], [place] [id number] Pcp:Zo Beaulieu MD Subjective: * Chief Complaints: * G erd,screening Assessment: * Assessment: 1. E ncounter for screening colonoscopy - Z12.11 (Primary) 2 . G pao-esophageal reflux disease without esophagitis - K21.9 Plan: * Procedure Codes: 4 5380 COLONOSCOPY AND [id number] UPPER GI ENDOSCOPY, BIOPSY Billing Information: * Procedure Codes: 57104 COLONOSCOPY AND BIOPSY. 38675 UPPER GI ENDOSCOPY, BIOPSY. * The named appointment provid er may or may not be the originator of this progress note, and it is not deemed complete until electronically signed by the appointment provider. Sign off status: Pending * Provider: Krishna Esteves MD Date: Generated for Edmra cota/Rocky/Lauraitting on: 02:01 PM EST
--- OUTSIDE RECORDS SUMMARY | 2025-02-11 14:01 | XMS_ITS | Patient Health Record ---
Author Organization [facility] Address [address] [place] [address] Care Team Providers Care Alternative Financing Specialist Name Role Phone Christofer CHUNG, Zo Primary Care Provider Ruben Esteves Jr, Ken Unavailable [phone] Allergies No Known Allergies Reason For Referral No Information Medications Medication SIG (Take, Route, Frequency, Duration) Notes Start Date End Date Status MiraLax (colon prep) 17 GM/SCOOP Powder mixed with Gatorade or Crystal Light Orally begin at 5:00 p.m. the day before the procedure; Duration: 1 day 10/24/2023 Active Vasotec Active Provigil Active Cymbalta 60 MG Capsule Delayed Release Particles Orally Ac tive Omeprazole 40 mg Capsule Delayed Release TAKE 1 CAPSULE BY MOUTH 30 MINUTES BEFORE MORNING MEAL ONCE DAILY; Duration: 30 Active Metoprolol Succinate ER Active Folic Acid 1 MG Tablet 1 tablet Orally O nce a day; Duration: 30 day(s) Active Pepcid 40 MG Tablet 1 tablet Orally Twic e a day; Duration: 30 day(s) 05/18/2018 Active Immunizations Vaccine Route Administration Date Status Comme nts Influenza Unknown 11/14/2017 Administered Influenza Unknown 10/24/2023 Refused Social History Social History Additional Details Category Social Info Options Details Miscellaneous: Marital status: Occupation: retired Problems Problem Type SNOMED Code ICD Code Onset Dates Problem Status W/U Status Risk Notes Problem Colon cancer screening (133665533) Colon cancer screening (Z12.11) Active confirmed Problem Gastro-esophageal reflux disease without esophagitis (216902389) Gastro-esophageal reflux disease without esophagitis (K21.9) Active confirmed Problem Gastroesophageal reflux disease without esophagitis (066407800) Gastroesophageal reflux disease without esophagitis (K21.9) Active confirmed Problem Ischemic colitis (94619511) Ischemic colitis (K55.9) Active confirmed Plan Of Treatment Future Test Test Name Order Date COLONOSCOPY 12/20/2012 UPPER GI ENDOSCOPY 05/18/2018 COLONOSCOPY 05/18/2018 UPPER GI ENDOSCOPY 10/24/2023 COLONOSCOPY 10/24/2023 Insurance Providers Payer Name Payer Address Payer Phone Subscriber Number Group Number Insured Name Patient Relationship to Insured Coverage Start Date Coverage End Date [facility] [address] [place] [phone] [id number] [employer] [employer] Self - patient is the [...]
--- OUTSIDE RECORDS SUMMARY | 2025-02-11 14:02 | XMS_ITS | Encounter Summary ---
Author Organization [facility], Address [address] [place] [address] Phone Care Team Providers Care Tile Sorter Name Role Phone Teo Beaulieu MD Primary Care Provider [phone] Reason for Visit * Reason Comments Med Refill Encounter Details Date Type Department Care Team (Late st Contact Info) Description 02/28/2021 Refill [facility] [address] [place] [phone] Jeffy Ewing MD Social History Tobacco Use [...] on filedocumented in this encounter Care Teams Tile Sorter Relationship Specialty Start Date End Date Teo Beaulieu MD [address] [facility] [place] [address] PCP - General Internal Medicine 04/11/23 documented as of this encounter
--- OUTSIDE RECORDS SUMMARY | 2025-02-11 14:02 | XMS_ITS | Encounter Summary ---
Author Organization [facility] Address [address] [place] [address] [place] [address] Phone Care Team Providers Care Cloth Winder Name Role Phone Guillermina Miranda MD Unavailable [phone] Zo Beaulieu MD Primary Care Provider Encounter Details Date Type Department Care Team (Latest Contact Info) Description 09/15/2021 Transcribe Orders Virtual Department [address] [place] [address] Brian Alberto MD [address] [place] [address] Symptomatic menopausal or female climacteric states (Primary [...] states documented in this encounter Care Teams Cloth Winder Relationship Specialty Start Date End Date Zo Beaulieu MD [address] [facility] [place] [address] PCP - General Internal Medicine 05/21/20 Guillermina Miranda MD [address] [place] [address], [address] [place] [address] [email or web address] Historical LMR Provider 12/04/16 documented as of this encounter Additional Source Comments The information contained in this document represents components of the legal health record. It is not the complete legal health record.[facility]
--- OUTSIDE RECORDS SUMMARY | 2025-02-11 14:02 | XMS_ITS | Clinical Summary ---
Author Organization [facility], Address [address] [place] [address] Phone Care Team Providers Care Editor Managing Newspaper Name Role Phone Teo Beaulieu MD Primary Care Provider [phone] Allergies No known active allergies Medications oxyCODONE-aceta [...] patient's age to complete this topic Insurance [facility] Care Teams Editor Managing Newspaper Relationship Specialty Start Date End Date Teo Beaulieu MD [address] [place] [address] PCP - General Internal Medicine 04/11/23
--- OUTSIDE RECORDS SUMMARY | 2025-02-11 14:02 | XMS_ITS | Clinical Summary ---
Author Organization [facility] Address [address] [address] Phone Care Team Providers Care Soft Crab Shedder Name Role Phone Guillermina Miranda MD Unavailable [phone] Zo Beaulieu MD Primary Care Provider Allergies No known active allergies Medications multivitamins capsule as directed Orally Active DULOXETINE HCL (CYMBALTA ORAL) 60 mg daily. Once a day Active enalapril (VASOTEC) 10 MG tablet Take 10 mg by mouth daily. Active metoprolol succinate (TOPROL-XL) 25 MG 24 hr tablet Take 50 mg by mouth daily. Active cholecalciferol (VITAMIN D3) 2,000 unit capsule Take 1 capsule by mouth. Active modafiniL (PROVIGIL) 200 MG tablet Take 200 mg by mouth every morning. 2 Active folic acid (FOLVITE) 1 MG tablet Take 1 tablet (1 mg total) by mouth 1 (one) time each day 2 Active omeprazole (PRILOSEC) 40 MG capsule Take 40 mg by mouth daily. Active estradioL (VIVELLE-DOT) 0.0375 mg/24 hrIndications:M enopausal symptoms Place 1 patch onto the skin 2 (two) times a week. 24 patch 3 5 Active clobetasol (TEMOVATE) 0.05 % ointmentIndicat ions:Lichen sclerosus Apply topically 3 (three) times a week. Use a thin film 30 g 5 Active Active Problems Problem Noted Date Diagnosed Date Essential hypertension 01/04/2020 Hyperlipidemia 01/04/2020 Renal stone 01/04/2020 Stage 3a chronic kidney disease 01/04/2020 Overview (09/15/2021): Update for Diagnosis Load Vasomotor symptoms due to menopause 02/03/2019 Assessment & Plan (10/18/2024 8:09 PM EDT): Counseled on lack of safety date re: [facility] use. Appropriate candidate, low ASCVD. Rx refilled. [...] Assessment & Plan (05/23/2020 5:12 PM EDT): Stable, recommend resumption of Clobetasol 1-2 times weekly. [...] Plan (02/03/2019 2:20 PM EST): Stable, rx refilled, reviewed medication instructions. Assessment & Plan (10/05/2017 1:56 PM EDT): Estrace refilled. Encounters Date Type Department Care Team Description 11/21/2024 Refill [facility] [address] [place] [address] [place] [address] Guillermina Miranda MD Medication Refill from Last 3 Months Immunizations Immunization Administration [...] 02/19/2021, 12/31/2019, Additional history exists COVID-19 VACCINE (3 - 2024- season) 2024 03/16/2021, 04/21/2020 BLOOD PRESSURE 04/17/2025 [...] [email or web address] 3. National Osteoporosis Foundation [email or web address].[email or web address].org Brian Alberto MD IM BD BONE DENSITY DEXA Final Result from Last 3 Months or Most Recently Relevant to Health Maintenance Insurance MEDICARE HMO REPLACEMENT [facility] [place] MEDICARE HMO [place] [address] [place] [address] [address] [place] [address] MEDICARE HMO REPLACEMENT [facility] MEDICARE HMO REPLACEMENT MEDICARE HMO REPLACEMENT MEDICARE HMO REPLACEMENT MEDICARE HMO [place] [address] MEDICARE HMO REPLACEMENT Care Teams Soft Crab Shedder Relationship Specialty Start Date End Date Zo Beaulieu MD [address] [facility] [place] [address] PCP - General Internal Medicine 05/21/20 Guillermina Miranda MD [address] [place] [address], [facility] [address] [place] [address] [email or web address] Historical LMR Provider 12/04/16 Additional Source Comments The information contained in this document represents components of the legal health record. It is not the complete legal health record.[facility]
--- OUTSIDE RECORDS SUMMARY | 2025-02-11 14:02 | XMS_ITS | Encounter Summary ---
Author Organization [facility], Address [address] [place] [address] Phone Care Team Providers Care Contract Sheltered Workshop Supervisor Name Role Phone Teo Beaulieu MD Primary Care Provider [phone] Encounter Details Date Type Department Care Team (Late st Contact Info) Description 04/21/2022 Documentation Only [facility], [address] [place] [address] Irvin Terrazas MD [address] [facility] [place] [phone] Social History Tobacco Use Types Packs/Day Years [...] on filedocumented in this encounter Care Teams Contract Sheltered Workshop Supervisor Relationship Specialty Start Date End Date Teo Beaulieu MD [address] [place] [address] PCP - General Internal Medicine 04/11/23 documented as of this encounter
[2025-02-11 14:51] LABS: MANUAL DIFF FLAG NO
[2025-02-11 14:58] LABS: Hematocrit 39.8 % (37.0-47.0); Hemoglobin 12.3 g/dl (12.0-16.0); Imm Gran Abs Auto 0.02 X10*3/uL (0.00-0.03); Imm Gran Pct Auto 0.3 % (0.0-0.4); Lymphocytes Absolute Auto 2.6 X10*3/uL (1.2-4.9); Mean Corpuscular HGB Conc 30.9 g/dl (31.0-35.0); Mean Corpuscular Hemoglobin 25.6 pg (27.0-33.0); Mean Corpuscular Volume 82.7 fL (80.0-98.0); NRBC Abs Auto 0.000 X10*3/uL (0.0-0.012); NRBC Pct Auto 0.0 /100WBC (0.0-0.2); Platelet Count 327 X10*3/uL (160-400); Red Blood Count 4.81 X10*6/uL (4.20-5.50); White Blood Count 7.3 X10*3/uL (4.8-10.8)
[2025-02-11 15:40] LABS: Alanine Aminotransferase 20 U/L (0-31); Anion Gap 13 (12-20); Aspartate Amino Transferase 30 U/L (5-31); Blood Urea Nitrogen 18 mg/dL (9-16); Calcium 9.4 mg/dL (8.4-10.2); Carbon Dioxide 23 mmol/L (22-29); Chloride 110 mmol/L (96-108); Cholesterol 253 mg/dL (<200); Estimated Glomerular Filt Rate 50; Ferritin 23 ng/mL (10-250); HDL Cholesterol 54 mg/dL (>40); Iron 64 mcg/dL (30-160); Percent Iron Saturation 23 % (15-50); Potassium 4.7 mmol/L (3.3-5.1); Sodium 141 mmol/L (135-145); Total Iron Binding Capacity 283 mcg/dL (228-428); Triglycerides 159 mg/dL (<150); Unsaturated Iron Binding 219 ug/dL
== END 2025-02-11 11:58 | disposition home or self-care (01) ==
LOC: HO.WFDLDS 11:57
PROVIDERS: Visit Provider Internal Medicine
DX: M81.0 Age-related osteoporosis without current pathological fracture (principal); I10 Essential (primary) hypertension; E78.00 Pure hypercholesterolemia, unspecified; Z13.0 Encounter for screening for diseases of the blood and blood-forming organs and certain disorders involving the immune mechanism
CPT/HCPCS: 36415; 80048; 80061; 82306; 82728; 83540; 84450; 84460; 85025

== ENCOUNTER 2025-02-13 10:53 | Outpatient (AMB) | payer MEDICARE, SELFPAY ==
--- OUTSIDE RECORDS SUMMARY | 2023-11-15 06:15 | XMS_ITS ---
Author Organization [facility] Address [address] [place] [phone] Care Team Providers Care Radio Journalist Name Role Phone Christofer CHUNG, Zo Primary Care Provider Ruben Esteves Jr, Ken Bond REASON FOR VISIT gerd,screening Problems Problem Type SNOMED Code ICD Code Onset Dates Problem Status W/U Status Risk Notes Problem Gastro-esophagea l reflux disease without esophagitis (464415443) Gastro-esophage al reflux disease without esophagitis (K21.9) Active confirmed Encounters Encounter Location Date Provider Diagnosis [facility] [place] [address] [place] [phone] 11/15/2023 Ken Esteves Jr Encounter for screening colonoscopy Z12.11 and Gastro-esophageal reflux disease without esophagitis K21.9 Assessments Encounter Date Diagnosis (ICD Code) Assessment Notes Treatment Notes Treatment Clinical Notes Section Notes 11/15/2023 Encounter for screening colonoscopy (ICD-10 - Z12.11) 11/15/2023 Gastro-esophagea l reflux disease without esophagitis (ICD-10 - K21.9) Plan Of Treatment No Information Progress Notes * DEBO HUOB:1945 (80 yo F)Acc No.[id number]:11/15/2023 EGD and COL/MAC Patient: NGA WOLF Provider: Krishna Esteves MD :1945 A ge:78 Y S ex:Female Date:11/15/2023 Address:[address] [place], [place] [phone] Pcp:Zo Beaulieu MD Subjective: * Chief Complaints: * G erd,screening Assessment: * Assessment: 1. E ncounter for screening colonoscopy - Z12.11 (Primary) 2 . G pao-esophageal reflux disease without esophagitis - K21.9 Plan: * Procedure Codes: 4 5380 COLONOSCOPY AND [id number] UPPER GI ENDOSCOPY, BIOPSY Billing Information: * Procedure Codes: 93118 COLONOSCOPY AND BIOPSY. 65109 UPPER GI ENDOSCOPY, BIOPSY. * The named appointment provid er may or may not be the originator of this progress note, and it is not deemed complete until electronically signed by the appointment provider. Sign off status: Pending * Provider: Krishna Esteves MD Date: Generated for Edmar cota/Rocky/Lauraitting on: 12:22 PM EST
[2025-02-13 11:01] VITALS: BP 125/78; PULSE 91; O2SAT 98; BMI 25.8
--- NOTE | 2025-02-13 11:01 | MHC.PC.OV ---
Vital Signs 02/13/25 11:01 Height 5 ft 2 in Weight 141 lb BMI 25.8 BP 125/78 Blood Pressure Location Lt brachial Position Sitting Pulse 91 Pulse Source Pulse Oximeter Pulse Oximetry (%) 98 Oxygen Delivery Method Room Air Intake Visit Reasons: 3 month follow up Allergies No Known Allergies (No Known Allergies*) Allergy (Verified 02/17/25 23:23) Medication List - Last Reconciled 02/13/25 by Zo Beaulieu MD cholecalciferol (vitamin D3) 50 mcg PO DAILY clobetasol 0.05% grams topical 3XW PRN duloxetine 60 mg PO DAILY enalapril maleate 20 mg PO DAILY estradiol 1 patch topical 2XW folic acid 1 mg PO DAILY metoprolol succinate ER 50 mg PO DAILY modafinil take 200 mg in am and 100 mg in pm 30 days omeprazole 40 mg PO DAILY rosuvastatin 5 mg PO DAILY Tobacco use date assessed: 08/16/24 Fall risk assessment: No Falls in past year Last assessed Fall Risk: 02/13/25 Dental Screening Dental Screen Date: 08/16/24 HPI 3 month follow up HPI Details The patient is a 80-year-old female presenting for a follow-up appointment for management of chronic conditions and review of recent lab results. She has hyperlipidemia, recent labs from February 11 showed a total cholesterol of 253 (down from 286) and an LDL of 168 (down from 206). She has been taking rosuvastatin but reports poor adherence, taking it only every other or every third day due to side effects of feeling Foggy-headed. Other recent lab findings include a fasting glucose of 104, placing her in the prediabetic range; due to some dietary indiscretions.. Her kidney function showed an eGFR of 50, which is an improvement from lows of 40-42 in previous years but a decline from her last result of 54. Her triglycerides were slightly elevated at 159, and her vitamin D level was normal. Her past anemia is resolved; she has a history of a bleeding small intestine ulcer secondary to arthritis medication use, which required a small bowel resection in 2005. The patient's hypertension is managed with metoprolol, and she reports being faithful with her medication. She has a history of gastroesophageal reflux disease and takes omeprazole daily, which was started after Pepcid became ineffective after 20 years of use. An upper endoscopy last year showed evidence of reflux. She has lichen planus, which was diagnosed by her track oiler . She currently uses clobetasol ointment about twice a week for one remaining spot. She has a history of osteoporosis and is managed by her track oiler with an estradiol patch, which also helps control her menopausal hot flashes. The patient also reports intermittent left shoulder pain, which she describes as a pinched nerve aggravated by shopping and relieved by lidocaine patches. Family history is significant for aortic stenosis and valve replacement in her father and brother. [facility] Medical History Osteoporosis Impaired fasting glucose Lichen sclerosus Hx of gastritis Narcolepsy Rotator cuff impingement syndrome of left shoulder Lumbar radiculopathy, right Arthritis of both hands Surgical History History of cataract surgery Hx of colonoscopy H/O microdiscectomy History of bowel resection Family History Brother S/P TAVR (transcatheter aortic valve replacement) Social History Housing: House Alcohol intake: unknown Patient Tobacco Use Status: Former Tobacco user e-Cigarette/Vaping Use: Never Used service: No Current occupational status: retired Current occupation: right Handed Cognitive needs: No Hearing needs: No Vision needs: Yes Questionnaire PHQ-9 Over the last 2 weeks, how often have you been bothered by any of the following problems? Depression Screening Interpretation: Negative Depression Screening Done: Yes Source: Developed by Drs. Brian Colon, Althea Harry, Chalo Murray and colleagues, with an educational aisha from [employer]. Thrive Questionnaire Date Thrive assessed: 05/02/24 I am a: Patient What is your living situation today?: I have a steady place to live Within the past 12 months, did the food you bought not last and you didn't have the money to get more?: Never true Within the past 12 months, did you worry whether your food would run out before you got money to buy more?: Never true Do you have trouble paying for medicines?: No Do you have trouble getting transportation to medical appointments?: No Do you have trouble paying your heating and electricity bill?: No Do you have trouble taking care of your child, family member or friend?: No Do you have trouble with day-to-day activities such as bathing, preparing meals, shopping, managing finances, etc.?: No Are you currently unemployed and looking for a job?: No Are you interested in more education?: No Currently or been in a relationship where the following occur: No concerns reported THRIVE Score: 0 INDIRA-7 AMB Questionnaire INDIRA-7 Date INDIRA - 7 assessed: 11/13/24 Source: Developed by Drs. Brian Colon, Althea Harry, Chalo Murray and colleagues, with an educational aisha from [employer]. Review of Systems Const Reports as per HPI, Denies fever(s), Denies frequent falls and Denies weakness Eyes Denies change in vision ENT Denies dizziness Card Denies leg edema, Denies lightheadedness, Denies dyspnea and Denies dyspnea on exertion Resp Denies cough, Denies dyspnea and Denies dyspnea on exertion GI Reports no additional complaints Reports no additional complaints Musc Reports as per HPI, Denies abnormal gait, Denies muscle weakness, Denies numbness, Denies radiating pain into limb, Reports stiffness and Denies tingling Skin/Breast Denies breast pain, Denies breast mass and Denies rash Neuro Denies abnormal gait, Denies dizziness, Denies frequent falls, Denies numbness, Denies tingling and Denies weakness Psych Reports no additional complaints Endo Reports as per HPI Azam/Lymph Reports no additional complaints Aller/Immun Reports no additional complaints Physical exam (Primary Care) Vital Signs: Last Vital Signs Pulse 91 02/13/25 11:01 BP 125/78 02/13/25 11:01 Pulse Ox 98 02/13/25 11:01 Oxygen Delivery Method Room Air 02/13/25 11:01 BMI result Body Mass Index 25.8 Tobacco/Smoking Status: Tobacco use Status Tobacco use date assessed 08/16/24 02/13/25 11:02 Patient Tobacco Use Status Former Tobacco user 02/13/25 11:02 e-Cigarette/Vaping Use Never Used 02/13/25 11:02 Depression Screening Interpretation: Negative Thrive Assessment: Date of Thrive Assessment Date Thrive assessed 05/02/24 02/13/25 11:02 Currently or been in a relationship where the following occur: No concerns reported Const General: comfortable and no acute distress Orientation/consciousness: patient oriented x3 HENMT Ears: external ears normal General nose exam: Normal external nose present Face and sinus: Yes face symmetric Mouth: Normal oral and palatal mucosa present, oropharynx normal and moist mucous membranes Eyes General: appearance normal, both eyes and all related structures Neck Neck: Yes full ROM, Yes no lymphadenopathy and Yes supple Thyroid: Thyroid normal Chest Breast/axilla palpation: normal palpation of the breasts Resp Effort & Inspection: normal respiratory effort and able to speak in complete sentences Auscultation: clear to auscultation bilaterally Cardio Rate: regular rate Rhythm: regular rhythm Heart sounds: S1 normal heart sound present and S2 normal heart sound present GI Inspection: Yes normal to inspection Palpation (GI): Soft to palpation, nontender, no guarding and no masses Auscultation: normal bowel sounds General: Yes no CVA tenderness Back/Spine/Pelvis Back: no CVA tenderness and No back tenderness Skin General skin exam: no rashes or lesions noted Neuro General: patient oriented x3, gait normal, moves all extremities, Normal light touch and pain sensation, no focal motor deficits and CN's II-XI intact bilaterally Extrem General: Yes full ROM, Yes no joint enlargement, Yes no pedal edema and Yes normal gait Psych Appearance: grossly normal and well kempt Affect: normal affect Results Reviewed Results Reviewed: Name: Azalia Coleman Age/Sex: 80/F : 1945 Unit#: [id number] Attend Dr: Zo Beaulieu MD Re02/11/25 Status: DEP REF Location: [facility] Disch: SPEC : [id number] LENARD: 02/11/25 STATUS: COMP REQ : [id number] RECD: 02/11/[address]: Zo Beaulieu MD COMP: 02/11/25 ENTERED: 02/11/[address]: ORDERED: CBC Auto Diff Test Result Flag Reference WBC 7.3 4.8-10.8 X10*3/uL RBC 4.81 4.20-5.50 X10*6/uL HGB 12.3 12.0-16.0 g/dl HCT 39.8 37.0-47.0 % MCV 82.7 80.0-98.0 fL MCH 25.6 L 27.0-33.0 pg MCHC 30.9 L 31.0-35.0 g/dl RDW 13.9 11.0-16.0 % PLT 327 160-400 X10*3/uL MPV 10.6 9.4-12.3 fL Neut Pct Auto 50.5 45-73 % ImGran Pct Auto 0.3 0.0-0.4 % Lymp Pct Auto 36.2 20-40 % Titus Pct Auto 9.8 2-11 % Eos Pct Auto 2.1 0-4 % Baso Pct Auto 1.1 0-2 % NRBC Pct Auto 0.0 0.0-0.2 /100WBC ANC Neut Abs # 3.7 2.0-8.3 x10*3/uL ImGran Abs Auto 0.02 0.00-0.03 X10*3/uL Lymph Abs Auto 2.6 1.2-4.9 X10*3/uL Titus Abs Auto 0.7 0.1-1.2 X10*3/uL Eos Abs Auto 0.2 0.0-0.4 X10*3/uL Baso Abs Auto 0.1 0.0-0.2 X10*3/uL NRBC Abs Auto 0.000 0.0-0.012 X10*3/uL Name: Azalia Coleman Age/Sex: 80/F : 1945 Unit#: [id number] Attend Dr: Zo Beaulieu MD Re02/11/25 Status: DEP [facility] Disch: SPEC : [id number] LENARD: 02/11/25-1199 STATUS: COMP REQ : [id number] RECD: 02/11/25-1445 [facility] DR: Zo Beaulieu MD COMP: 02/11/25-1540 ENTERED: 02/11/25-[address]: ORDERED: Met Prof Fast, IRON PROF, Ferritin, AST, ALT, Lipid Panel, Vitamin D 25- Test Result Flag Reference Sodium 141 135-145 mmol/L Potassium 4.7 3.3-5.1 mmol/L CL 110 H 96-108 mmol/L CO2 23 22-29 mmol/L Gap 13 12-20 BUN 18 H 9-16 mg/dL Creat 1.07 0.5-1.4 mg/dL eGFR 50 Chronic Kidney Disease: Estimated GFR < 60 mL/min/1.73m2 Severe Kidney Disease: Estimated GFR < 15 mL/min/1.73m2 FBS 104 H 60-99 mg/dL A fasting glucose from 100-125 mg/dl is considered impaired (pre-diabetes). CA 9.4 8.4-10.2 mg/dL Iron 64 30-160 mcg/dL TIBC 283 228-428 mcg/dL Saturation 23 15-50 % UIBC 219 ug/dL Ferritin 23 10-250 ng/mL AST (GOT) 30 5-31 U/L ALT (GPT) 20 0-31 U/L Triglyceride 159 H <150 mg/dL Desirable Triglyceride: less than 150 mg/dL Borderline High Triglyceride 150-199 mg/dL High Triglyceride: 200-499 mg/dL Very High Triglyceride: greater than or equal to 5OO mg/dL Cholesterol 253 H <200 mg/dL Desirable Cholesterol: less than 200 mg/dL Borderline High Cholesterol: 200-239 mg/dL High Cholesterol: greater than 239 mg/dL LDL Calculated 168 H <100 mg/dL Desirable LDL: less than 100 mg/dL Near Optimal/Above Optimal LDL: 110-129 mg/dL Borderline High LDL: 130-159 mg/dL High LDL: 160-189 mg/dL Very High LDL: greater than or equal to 190 mg/dL HDL 54 >40 mg/dL Desirable HDL: greater than 40 mg/dL Note: This HDL assay may give artificially low results in patients with liver disease. Vitamin D 25-OH 33.6 >30 ng/mL Health Based Reference Values* < 20 ng/mL Deficient 20-30 ng/mL Insufficient > 30 ng/mL Sufficient Coding Level of Care Code Est Pt Level 4 (27919) Diagnoses Pure hypercholesterolemia E78.00 Hyperlipidemia type: pure hypercholesterolemia Essential hypertension I10 Impaired fasting glucose R73.01 Assessment & Plan Assessment & Plan (1) Hyperlipidemia: Code(s): E78.5 - Hyperlipidemia, unspecified Category: Medical Qualifiers: Hyperlipidemia type: pure hypercholesterolemia Qualified Code(s): E78.00 - Pure hypercholesterolemia, unspecified Plan: Reviewed recent fasting lipid results with patient which showed LDL cholesterol not at goal. She is intolerant to rosuvastatin due to side effects of feeling foggy headed , but despite inconsistent use, her LDL has decreased to 168 from 206. Rosuvastatin will be discontinued, and she will start pravastatin 20 mg at night, which is a weaker statin , and also advised to take CoQ10 100 mg with the it. A lipid panel will be repeated in 3 months to assess the new regimen's effectiveness. (2) Essential hypertension: Code(s): I10 - Essential (primary) hypertension Category: Medical Plan: Blood pressure at goal of less than 130/80. Continue with current medication. Reinforced importance of following a low sodium diet, getting regular exercise, and lowering stress levels. (3) Impaired fasting glucose: Code(s): R73.01 - Impaired fasting glucose Category: Medical Plan: Your previous fasting blood sugars were elevated above 100 mg/dL. Impaired glucose metabolism increases the risk for developing diabetes mellitus type 2, as well as heart attack and stroke later on. Lifestyle changes that promotes weight loss, healthy eating habits, and regular exercise are important, and can prevent the progression to diabetes Orders: Orders Lipid Panel 3 Months E78.00 - Pure hypercholesterolemia, unspecified, I10 - Essential (primary) hypertension, R73.01 - Impaired fasting glucose Aspartate Amino Transferase 3 Months E78.00 - Pure hypercholesterolemia, unspecified, I10 - Essential (primary) hypertension, R73.01 - Impaired fasting glucose Alanine Aminotransferase 3 Months E78.00 - Pure hypercholesterolemia, unspecified, I10 - Essential (primary) hypertension, R73.01 - Impaired fasting glucose Basic Metabolic Panel Fasting 3 Months E78.00 - Pure hypercholesterolemia, unspecified, I10 - Essential (primary) hypertension, R73.01 - Impaired fasting glucose Hemoglobin A1c 3 Months E78.00 - Pure hypercholesterolemia, unspecified, I10 - Essential (primary) hypertension, R73.01 - Impaired fasting glucose Medications: New pravastatin 20 mg PO BEDTIME 90 tabs 1RF E78.00 - Pure hypercholesterolemia, unspecified Discontinued rosuvastatin Discontinued Reason: Doctor's Order 5 mg PO DAILY 90 tabs 1RF
--- OUTSIDE RECORDS SUMMARY | 2025-02-13 12:23 | XMS_ITS | Patient Health Record ---
Author Organization [facility] Address [address] [place] [id number] Care Team Providers Care Database Development Project Manager Name Role Phone Christofer CHUNG, Zo Primary Care Provider Ruben Esteves Jr, Ken Unavailable Allergies No Known Allergies Reason For Referral [...] Status Risk Notes Problem Colon cancer screening (019789175) Colon cancer screening (Z12.11) Active confirmed Problem Gastro-esophageal reflux disease without esophagitis (966117924) Gastro-esophageal reflux disease without esophagitis (K21.9) Active confirmed Problem Gastroesophageal reflux disease without esophagitis (151524759) Gastroesophageal reflux disease without esophagitis (K21.9) Active confirmed Problem Ischemic colitis (54852298) Ischemic colitis (K55.9) Active confirmed Plan Of Treatment Future Test Test Name Order Date COLONOSCOPY 12/20/2012 UPPER GI ENDOSCOPY 05/18/2018 COLONOSCOPY 05/18/2018 UPPER GI ENDOSCOPY 10/24/2023 COLONOSCOPY 10/24/2023 Insurance Providers Payer Name Payer Address Payer Phone Subscriber Number Group Number Insured Name Patient Relationship to Insured Coverage Start Date Coverage End Date [facility] [address] [place] [address] [phone] [id number] Self - patient is the [...]
--- OUTSIDE RECORDS SUMMARY | 2025-02-13 12:23 | XMS_ITS | Encounter Summary ---
Author Organization [facility], Address [address] [place] [address] Phone Care Team Providers Care Finance Insurance Manager Name Role Phone Teo Beaulieu MD Primary Care Provider +1- [phone] Reason for Visit * Reason Comments Med Refill Encounter Details Date Type Department Care Team (Late st Contact Info) Description 02/28/2021 Refill [facility] [address] [place] [phone] Jeffy Ewing MD Social History Tobacco Use [...] on filedocumented in this encounter Care Teams Finance Insurance Manager Relationship Specialty Start Date End Date Teo Beaulieu MD [address] [facility] [place] [facility] [place] [address] PCP - General Internal Medicine 04/11/23 documented as of this encounter
--- OUTSIDE RECORDS SUMMARY | 2025-02-13 12:23 | XMS_ITS | Clinical Summary ---
Author Organization [facility], Address [address] [place] [address] Phone Care Team Providers Care Spot Worker Name Role Phone Teo Beaulieu MD Primary Care Provider +1- [phone] Allergies No known active allergies Medications oxyCODONE-aceta [...] patient's age to complete this topic Insurance [facility] Care Teams Spot Worker Relationship Specialty Start Date End Date Teo Beaulieu MD [address] [place] [address] PCP - General Internal Medicine 04/11/23
--- OUTSIDE RECORDS SUMMARY | 2025-02-13 12:23 | XMS_ITS | Encounter Summary ---
Author Organization [facility], Address [address] [place] [address] Phone Care Team Providers Care Cooking Chef Name Role Phone Teo Beaulieu MD Primary Care Provider +1- [phone] Encounter Details Date Type Department Care Team (Late st Contact Info) Description 04/21/2022 Documentation Only [facility], [address] [place] [place] [address] Irvin Terrazas MD [address] [place] [phone] Social History Tobacco Use Types Packs/Day Years [...] on filedocumented in this encounter Care Teams Cooking Chef Relationship Specialty Start Date End Date Teo Beaulieu MD [address] [place] [address] PCP - General Internal Medicine 04/11/23 documented as of this encounter
== END 2025-02-13 12:19 | disposition home or self-care (01) ==
LOC: HO.HMCC 10:54
PROVIDERS: PCP Internal Medicine; Visit Provider Internal Medicine
DX: E78.00 Pure hypercholesterolemia, unspecified (principal); I10 Essential (primary) hypertension; R73.01 Impaired fasting glucose

== ENCOUNTER → 2025-02-13 10:53 | Outpatient (BNVA) | payer MEDICARE, SELFPAY | PROVIDERS: PCP Internal Medicine; Visit Provider Internal Medicine | DX: E78.00 Pure hypercholesterolemia, unspecified (principal); R73.01 Impaired fasting glucose; I10 Essential (primary) hypertension; M81.0 Age-related osteoporosis without current pathological fracture; M25.512 Pain in left shoulder; T46.6X5A Adverse effect of antihyperlipidemic and antiarteriosclerotic drugs, initial encounter; R44.9 Unspecified symptoms and signs involving general sensations and perceptions; N95.1 Menopausal and female climacteric states; R23.2 Flushing; L90.0 Lichen sclerosus et atrophicus; Z86.2 Personal history of diseases of the blood and blood-forming organs and certain disorders involving the immune mechanism; Z87.19 Personal history of other diseases of the digestive system; Z79.899 Other long term (current) drug therapy; Z82.49 Family history of ischemic heart disease and other diseases of the circulatory system | CPT/HCPCS: 99212 ==